=== PATIENT | female | born 1950 | race Caucasian/White ===

== ENCOUNTER 2020-11-01 06:18 | Outpatient (REF) | payer MEDICARE, SELFPAY ==
[2020-11-01 12:29] LABS: Alanine Aminotransferase 11 U/L (0-31); Anion Gap 14 (12-20); Aspartate Amino Transferase 16 U/L (5-31); Blood Urea Nitrogen 17 mg/dL (9-16); Calcium 9.3 mg/dL (8.4-10.2); Carbon Dioxide 30 mmol/L (22-29); Chloride 101 mmol/L (96-108); Cholesterol 192 mg/dL; Estimated Glomerular Filt Rate > 60; Glucose Fasting 114 mg/dL (60-99); HDL Cholesterol 67 mg/dL; LDL Cholesterol Calculated 106 mg/dl; Potassium 3.7 mmol/l (3.3-5.1); Sodium 141 mmol/L (135-145); Triglycerides 95 mg/dL
== END 2020-11-01 06:19 | disposition home or self-care (01) ==
LOC: HO.HMGCLDS 06:18
PROVIDERS: PCP Internal Medicine; Visit Provider Internal Medicine
DX: E78.5 Hyperlipidemia, unspecified (principal); I10 Essential (primary) hypertension; R73.01 Impaired fasting glucose; Z78.0 Asymptomatic menopausal state
CPT/HCPCS: 36415; 80048; 80061; 82306; 84450; 84460

== ENCOUNTER → 2021-01-20 13:39 | Outpatient (BNVA) | payer MEDICARE, SELFPAY | PROVIDERS: PCP Internal Medicine; Visit Provider Physician Assistant | DX: D12.6 Benign neoplasm of colon, unspecified (principal) | CPT/HCPCS: 99212 ==

== ENCOUNTER 2021-02-13 14:55 | Outpatient (REF) | payer MEDICARE, SELFPAY ==
--- NOTE | ~2021-02-13 | XR_ITS ---
EXAMINATION: XR KNEE, LEFT CLINICAL INFORMATION: Pain in left knee COMPARISON: Left knee 02/13/2010 TECHNIQUE: Four views of the left knee. FINDINGS: There is no fracture. No dislocation. There is no joint effusion. There is moderate degenerative joint narrowing of the medial femoral tibial joint with marginal bone spurs of femur and tibia. There are small spurs of the tibial spines. Minimal spur of the patella the patellofemoral joint. Compared to the study of 02/13/2010 there has been progression of the degenerative changes particularly at the medial femoral tibial joint with increased joint narrowing and marginal bone spurs. XR/XR knee LT 4V IMPRESSION: 1. No acute abnormality. 2. Degenerative joint disease of the knee.
== END 2021-02-13 14:56 | disposition home or self-care (01) ==
LOC: HO.HMGCX 14:55
PROVIDERS: PCP Internal Medicine; Visit Provider Hospitalist
DX: M25.562 Pain in left knee (principal)
CPT/HCPCS: 73564

== ENCOUNTER 2021-03-14 08:48 | Day surgery (SDC) | payer MEDICARE, SELFPAY ==
[2021-03-07 12:08] VITALS: BMI 26.5
--- NOTE | 2021-03-12 13:02 | HO.ANESPROP2 ---
Documented by User: Haven Mahoney 03/12/21 13:03 HPI - Anesthesia Eval Consult details Narrative: 70yo F for Colonoscopy PMFSH Active Problems Active Problems: All Active Problems (Updated 02/13/21 @ 15:02 by Lance Beltran DO) Left knee pain (Acute) Tubular adenoma of colon (Acute) Impaired fasting glucose (Acute) Menopause (Acute) Dyslipidemia (Acute) Past Medical History Medical History (Updated 02/13/21 @ 15:02 by Lance Beltran DO) Dyslipidemia Impaired fasting glucose Menopause Tubular adenoma of colon Family History Family History Father No problems noted. Mother COPD (chronic obstructive pulmonary disease) Brother No problems noted. Son No problems noted. Daughter No problems noted. Surgical History Surgical History (Updated 03/07/21 @ 12:11 by Jen Ragsdale) History of section History of surgery Hx of colonoscopy Social History Social History (Updated 03/07/21 @ 12:10 by Jen Ragsdale) Household Members: Family Alcohol intake: current Alcohol intake frequency: holidays/special occasions only Are you DNR?: No Advance Directives: No Advance Directives Information Provided: No Advance Directives on File: No Meds Allergies Allergy/AdvReac Type Severity Reaction Status Date / Time codeine Allergy Severe Vomiting Verified 03/07/21 12:11 Home Medications Medication Instructions Recorded Confirmed Last Taken Type cholecalciferol (vitamin D3) 50 50 mcg PO DAILY 11/13/20 03/07/21 Unknown History mcg (2,000 unit) capsule flu vacc [id number](65yr up)-PF 240 ml IM DIRECTED 11/13/20 02/13/21 Unknown History mcg/0.7 mL intramuscular syringe calcium carbonate 500 mg calcium 500 mg PO DAILY 01/20/21 03/07/21 Unknown History (1,250 mg) chewable tablet multivitamin 1 tab PO DAILY 01/20/21 03/07/21 Unknown History Exam Exam Date and Time: March 12, 2021 1302 Height,Weight and Vital Signs: Height 5 ft 2 in Weight 65.771 kg Assessment and Plan Assessment Anesthesia Assessment: Chart Reviewed Documented by User: Audelia Tal 03/14/21 10:14 [facility] Past Medical History Medical History (Updated 02/13/21 @ 15:02 by Lance Beltran DO) Dyslipidemia Impaired fasting glucose Menopause Tubular adenoma of colon Family History Family History Father No problems noted. Mother COPD (chronic obstructive pulmonary disease) Brother No problems noted. Son No problems noted. Daughter No problems noted. Surgical History Surgical History (Updated 03/07/21 @ 12:11 by Jen Ragsdale) History of section History of surgery Hx of colonoscopy Social History Social History (Updated 03/07/21 @ 12:10 by Jen Ragsdale) Household Members: Family Alcohol intake: current Alcohol intake frequency: holidays/special occasions only Are you DNR?: No Advance Directives: No Advance Directives Information Provided: No Advance Directives on File: No Meds Allergies Allergy/AdvReac Type Severity Reaction Status Date / Time codeine Allergy Severe Vomiting Verified 03/07/21 12:11 Home Medications Medication Instructions Recorded Confirmed Last Taken Type cholecalciferol (vitamin D3) 50 50 mcg PO DAILY 11/13/20 03/07/21 Unknown History mcg (2,000 unit) capsule flu vacc [id number](65yr up)-PF 240 ml IM DIRECTED 11/13/20 02/13/21 Unknown History mcg/0.7 mL intramuscular syringe calcium carbonate 500 mg calcium 500 mg PO DAILY 01/20/21 03/07/21 Unknown History (1,250 mg) chewable tablet multivitamin 1 tab PO DAILY 01/20/21 03/07/21 Unknown History Exam Airway Mallampati Class: I TM Dist: >3cm Neck ROM: Full Heart: RrR Lungs: CTA Assessment and Plan Assessment Anesthesia Assessment: Anesthesia Plan Discussed and Chart Reviewed Final Anesthetic Review NPO: Yes ASA Class: II Final Preanesthetic Review: No Changes in Pt Med Stat and Consent Obtained/Reviewed Patient Risk: Intermediate Procedure Risk: Intermediate Anesthetic Plan Anesthetic Plan: MAC: Disposition: Standard PACU
[2021-03-14 09:17] VITALS: BP 167/80; PULSE 89; RESP 20; TEMP 36.7; O2SAT 96
[2021-03-14] MEDS: Lactated Ringers 1,000 ML 100 ML IVCONT (09:45)
--- NOTE | 2021-03-14 10:29 | P.OP_ITS ---
Operative Note Operative Note Date of Service: 03/14/21 Narrative: Pre-op diagnosis: Colon cancer screening, history of colon polyps Post-op diagnosis: other (Colon polyp, diverticulosis, hemorrhoids) Procedure: COLONOSCOPY TILL CECUM WITH BIOPSIES Consent: Indications for the procedure and potential complications of bleeding, perforation, reaction to medications and missed diagnosis were discussed with the patient and informed consent was obtained. Instrument: Olympus PCF H 190 L variable stiffness pediatric colonoscope Monitoring: Vital signs and clinical assessment, intermittent blood pressure monitoring, continuous EKG monitoring, Pulse oximetry and Carbon Dioxide monitoring were done throughout the procedure. Colon withdrawl time was 21 minutes. Procedure: The patient was placed in the left lateral decubitis position and pre-procedure medications were administered. After a digital rectal examination of the ano-rectum, the video colonoscope was inserted into the rectum and advanced through the colon to the cecum. The colonoscope was slowly withdrawn in a retrograde panoramic fashion and the colon mucosa was carefully examined including a retroflexed view of the rectum. Findings and interventions are described below. Procedure Difficulty: Without difficulty Findings: Terminal Ileum: Not evaluated Cecum: Normal Ascending Colon: Normal Transverse Colon: Normal Descending Colon: Normal Sigmoid Colon: One 6-7 mm sessile polyp removed with a cold bx. Moderate diverticulosis Rectum: Normal Ano-rectum: Moderate internal hemorrhoids and perianal skin tags Colon preparation: Good after some irrigation Impression and Post Procedure Diagnosis: Colonoscopy Findings: One small polyp removed Moderate diverticulosis seen in the sigmoid colon Moderate hemorrhoids on retroflexed exam. Plan: Await pathology results Patient has an appointment on 03/27/21 in the [facility] with DREW Agudelo. Repeat Colonoscopy interval based on path results - in 5 years if polyps are adenomatous and 10 years if polyps are hyperplastic. Above findings were reviewed with the patient and colon polyps and diverticulosis handouts were given in the discharge area Surgeon: Britney Beck MD Anesthesia: MAC (Dr Gonzales) Was an Hand Silvering Supervisor used for this Procedure?: Yes Hand Silvering Supervisor: Anthony Jewell Estimated blood loss (mL): 0 Pathology: other ( A- SIGMOID POLYP) Condition: stable Disposition: PACU
--- NOTE | 2021-03-14 10:29 | MHC.SHP ---
Pre-Procedural Eval Section A The patient is an INPATIENT: No The History & Physical has been completed within 30 days and I have reviewed it.: No Section B Chief Complaint: screening Details of Present Illness: Colon cancer screening, history of colon polyps Relevant Family History (Specify if Yes): No Relevant Social History: Tobacco Use (past smoker) Present Medications: see Short Stay Collaborative assessment Medical History: Significant History (Dyslipidemia Impaired fasting glucose Menopause Tubular adenoma of colon) History of Previous Operations: Relevant previous surgery/procedure and date(s) (C Section) Allergies: Allergies Allergy/AdvReac Type Severity Reaction Status Date / Time codeine Allergy Severe Vomiting Verified 03/07/21 12:11 Review of Systems Sugical H&P ROS: Negative: Constitution, Cardiovascular, Respiratory and Gastrointestinal Exam Surgical H&P Exam: Normal: Heart, Normal: Lungs, Normal: Extremities and Normal: Abdomen Plan Diagnosis/Plan: Unchanged I have reviewed the history and physical and performed a pertinent physical examination on my patient. No changes have occurred unless specified.
[2021-03-14 11:12] VITALS: BP 114/54; PULSE 86; RESP 16; TEMP 36.6; O2SAT 97
[2021-03-14 11:27] VITALS: BP 138/71; PULSE 79; RESP 17; TEMP 36.6; O2SAT 98
== END 2021-03-14 12:30 | disposition home or self-care (01) ==
PROVIDERS: PCP Internal Medicine; Visit Provider Internal Medicine Gastroenterology
PROC: 0DJD8ZZ Inspection of Lower Intestinal Tract, Via Natural or Artificial Opening Endoscopic (ICD-10-PCS; CPT 45378; principal; 2021-03-14 10:10)
DX: Z12.11 Encounter for screening for malignant neoplasm of colon (principal); Z86.010 Personal history of colon polyps; K63.5 Polyp of colon; K57.30 Diverticulosis of large intestine without perforation or abscess without bleeding; K64.8 Other hemorrhoids; K64.4 Residual hemorrhoidal skin tags; E78.5 Hyperlipidemia, unspecified; Z79.899 Other long term (current) drug therapy; Z87.891 Personal history of nicotine dependence
CPT/HCPCS: 45380; 88305

== ENCOUNTER 2021-04-15 09:51 | Outpatient (REF) | payer MEDICARE, SELFPAY ==
--- NOTE | ~2021-04-15 | MM_ITS ---
EXAMINATION: BONE DENSITOMETRY CLINICAL INDICATION: Asymptomatic menopausal state. COMPARISON: Previous BD dated 06/16/2019 and baseline BD dated 02/19/2017. TECHNIQUE: Using a [employer] DXA System (software version: 13.1) manufactured by [employer], dual-energy x-ray absorptiometry was performed of the lumbar spine and left hip. The images are of good technical quality. Summary results are attached. FINDINGS: AP SPINE L1-L4: Current: BMD 1.319 g/cm2, Z-score 2.8, T-score 1.2, normal, 1.2% increase from previous, 4.1% increase from baseline (<5% change is not significant). Prior: BMD 1.303 g/cm2. Baseline: BMD 1.267 g/cm2. LEFT FEMUR, NECK: Current: BMD 0.814 g/cm2, Z-score 0.0, T-score -1.6, osteopenia. Prior: BMD 0.837 g/cm2. Baseline: BMD 0.878 g/cm2. LEFT FEMUR, TOTAL: Current: BMD 0.861 g/cm2, Z-score 0.2, T-score -1.2, osteopenia, 2.8% decrease from previous, 5.6% decrease from baseline (<5% change is not significant). Prior: BMD 0.886 g/cm2. Baseline: BMD 0.912 g/cm2. IDENTIFIED RISK FACTORS: Menopause, thiazide. HISTORY OF FRACTURE: None listed. MEDICATIONS: Calcium supplements or multivitamin, vitamin D. MM/XR DEXA axial skeleton IMPRESSION: 1. DIAGNOSIS: Osteopenia based on the lowest T-score value of -1.6 in the femoral neck applying World Health Organization criteria. 2. 10-YEAR FRACTURE RISK PREDICTION, FRAX: Major osteoporotic fracture (clinical spine, forearm, hip or shoulder) 10.1%. Hip fracture 1.4%. 3. Treatment Recommendations: NOF guidelines recommend consideration for treatment in postmenopausal women and men age 50 and older presenting with the following: -A hip or vertebral (clinical or morphometric) fracture. -T-score less than or equal to -2.5 at the femoral neck or spine after appropriate evaluation to exclude secondary causes. -Low bone mass at the hip or spine and a 10-year fracture probability by FRAX of greater than or equal to 3% for hip fracture or greater than or equal to 20% for major osteoporotic fracture based on the [place] adapted WHO algorithm. 4. Other Recommendations: All treatment decisions require clinical judgment and consideration of individual patient factors, including patient preferences, comorbidities, previous drug use, risk factors not captured in the FRAX model (e.g. frailty, falls, vitamin D deficiency, increased bone turnover, interval significant decline in bone density) and possible under or overestimation of fracture risk by FRAX. Additional medical evaluation for secondary cause of low bone mineral density may be appropriate. FUTURE SCAN RECOMMENDATION: People with diagnosed cases of osteoporosis or at high risk for fracture should have regular bone mineral density tests. For patients eligible for Medicare, routine testing is allowed once every 2 years. The testing frequency can be increased to one year for patients who have rapidly progressing disease, those who are receiving or discontinuing medical therapy to restore bone mass, or have additional risk factors.
--- NOTE | ~2021-04-15 | MM_ITS ---
EXAMINATION: MM SCREENING DIGITAL BREAST TOMOSYNTHESIS, BILATERAL CLINICAL INFORMATION: Screening. Asymptomatic. The lifetime risk of breast cancer based on the Tyrer-Cuzick Model is 3.5%. COMPARISON: Mammography: September 16, 2018 and studies dating back to December 06, 2009 TECHNIQUE: Digital breast tomosynthesis is performed in both the craniocaudal and mediolateral oblique views along with computer-aided detection (CAD). Synthesized 2D images are generated from the tomosynthesis. FINDINGS: The breasts are extremely dense, which lowers the sensitivity of mammography (ACR BI-RADS breast composition Category d). There are no significant masses, abnormal calcifications, or other abnormalities. MM/MM tomosynthesis screening BI IMPRESSION: There are no significant changes from prior study. ASSESSMENT: BI-RADS 1: Negative RECOMMENDATION: Routine annual mammography screening. This patient's information was entered into a reminder system with a target due date for their next mammogram.
== END 2021-04-15 09:52 | disposition home or self-care (01) ==
LOC: HO.MAMMO 09:51
PROVIDERS: Visit Provider Internal Medicine
DX: Z12.31 Encounter for screening mammogram for malignant neoplasm of breast (principal); Z13.820 Encounter for screening for osteoporosis; M85.80 Other specified disorders of bone density and structure, unspecified site; Z78.0 Asymptomatic menopausal state; Z79.899 Other long term (current) drug therapy
CPT/HCPCS: 77063; 77067; 77080

== ENCOUNTER → 2021-04-17 07:26 | Outpatient (BNVA) | payer MEDICARE, SELFPAY | PROVIDERS: PCP Internal Medicine; Visit Provider Physician Assistant | DX: Z13.89 Encounter for screening for other disorder (principal) | CPT/HCPCS: Q3014 ==

== ENCOUNTER 2021-05-05 12:38 | Outpatient (REF) | payer MEDICARE, SELFPAY ==
--- NOTE | ~2021-05-05 | XR_ITS ---
EXAMINATION: XR KNEE, BILATERAL XR KNEE, LEFT CLINICAL INFORMATION: Left knee pain. COMPARISON: Right knee 02/13/2021 TECHNIQUE: AP bilateral knees standing. Left knee 2 views. FINDINGS: AP BILATERAL KNEE: There is moderate loss of medial compartment joint space both knees with moderate periarticular spurring. There is minimal loss of lateral compartment joint. No fracture or bony erosive changes. Incidental finding of large varicose veins are seen along the medial calf and the medial thigh bilaterally. LEFT KNEE: There is mild loss of patellofemoral compartment joint space with superior periarticular spurring. There is minimal suprapatellar joint effusion. No acute fracture or lytic process seen. XR/XR knee standing BI IMPRESSION: Degenerative arthritic changes tricompartment left knee with periarticular spurring in the medial and the patellofemoral compartment. Moderate medial and mild lateral compartment arthritic changes right knee. Moderate varicose veins are seen along the medial calf and medial thigh of both knees.
--- NOTE | ~2021-05-05 | XR_ITS ---
EXAMINATION: XR KNEE, BILATERAL XR KNEE, LEFT CLINICAL INFORMATION: Left knee pain. COMPARISON: Right knee 02/13/2021 TECHNIQUE: AP bilateral knees standing. Left knee 2 views. FINDINGS: AP BILATERAL KNEE: There is moderate loss of medial compartment joint space both knees with moderate periarticular spurring. There is minimal loss of lateral compartment joint. No fracture or bony erosive changes. Incidental finding of large varicose veins are seen along the medial calf and the medial thigh bilaterally. LEFT KNEE: There is mild loss of patellofemoral compartment joint space with superior periarticular spurring. There is minimal suprapatellar joint effusion. No acute fracture or lytic process seen. XR/XR knee LT 2V IMPRESSION: Degenerative arthritic changes tricompartment left knee with periarticular spurring in the medial and the patellofemoral compartment. Moderate medial and mild lateral compartment arthritic changes right knee. Moderate varicose veins are seen along the medial calf and medial thigh of both knees.
== END 2021-05-05 12:39 | disposition home or self-care (01) ==
LOC: HO.HOSX 12:38
PROVIDERS: Visit Provider Orthopaedic Surgery
DX: M17.12 Unilateral primary osteoarthritis, left knee (principal)
CPT/HCPCS: 20610; 73560; 73565; 99202; J1100

== ENCOUNTER 2021-05-31 15:14 | Outpatient (REF) | payer MEDICARE, SELFPAY | END 2021-05-31 15:15 | disposition home or self-care (01) | LOC: HO.LNP 15:14 | PROVIDERS: Visit Provider Physician Assistant Medical | DX: H10.9 Unspecified conjunctivitis (principal); Z20.822 Contact with and (suspected) exposure to COVID-19 | CPT/HCPCS: U0003; U0005 ==

== ENCOUNTER 2021-09-18 06:05 | Outpatient (REF) | payer MEDICARE, SELFPAY ==
[2021-09-18 11:42] LABS: Alanine Aminotransferase 12 U/L (0-31); Anion Gap 11 (12-20); Aspartate Amino Transferase 16 U/L (5-31); Blood Urea Nitrogen 15 mg/dL (9-16); Calcium 9.6 mg/dL (8.4-10.2); Carbon Dioxide 30 mmol/L (22-29); Chloride 107 mmol/L (96-108); Cholesterol 205 mg/dL; Estimated Glomerular Filt Rate > 60; Glucose Fasting 122 mg/dL (60-99); HDL Cholesterol 62 mg/dL; LDL Cholesterol Calculated 123 mg/dl; Potassium 3.8 mmol/L (3.3-5.1); Sodium 144 mmol/L (135-145); Triglycerides 104 mg/dL
[2021-09-18 12:05] LABS: Vitamin D 25-OH Total 46.5 ng/mL (>30)
== END 2021-09-18 06:06 | disposition home or self-care (01) ==
LOC: HO.HMGCLDS 06:05
PROVIDERS: PCP Internal Medicine; Visit Provider Internal Medicine
DX: E78.5 Hyperlipidemia, unspecified (principal); R73.01 Impaired fasting glucose; I10 Essential (primary) hypertension; Z78.0 Asymptomatic menopausal state
CPT/HCPCS: 36415; 80048; 80061; 82306; 84450; 84460

== ENCOUNTER 2022-02-19 06:01 | Outpatient (REF) | payer MEDICARE, SELFPAY ==
[2022-02-19 11:37] LABS: Alanine Aminotransferase 9 U/L (0-31); Anion Gap 14 (12-20); Aspartate Amino Transferase 17 U/L (5-31); Blood Urea Nitrogen 15 mg/dL (9-16); Calcium 9.8 mg/dL (8.4-10.2); Carbon Dioxide 29 mmol/L (22-29); Chloride 104 mmol/L (96-108); Cholesterol 185 mg/dL; Estimated Glomerular Filt Rate > 60; Glucose Fasting 119 mg/dL (60-99); HDL Cholesterol 59 mg/dL; LDL Cholesterol Calculated 107 mg/dl; Sodium 143 mmol/L (135-145); Triglycerides 96 mg/dL
[2022-02-19 11:46] LABS: Estimated Average Glucose 131 mg/dL; Hemoglobin A1c % 6.2 %
== END 2022-02-19 06:02 | disposition home or self-care (01) ==
LOC: HO.HMGCLDS 06:01
PROVIDERS: Visit Provider Internal Medicine
DX: Z00.01 Encounter for general adult medical examination with abnormal findings (principal); E78.5 Hyperlipidemia, unspecified; R73.01 Impaired fasting glucose; I10 Essential (primary) hypertension; N95.9 Unspecified menopausal and perimenopausal disorder
CPT/HCPCS: 36415; 80048; 80061; 82306; 83036; 84450; 84460

== ENCOUNTER 2022-04-21 09:57 | Outpatient (REF) | payer MEDICARE, SELFPAY ==
--- NOTE | ~2022-04-21 | MM_ITS ---
EXAMINATION: MM SCREENING DIGITAL BREAST TOMOSYNTHESIS, BILATERAL CLINICAL INFORMATION: Screening. Asymptomatic. The lifetime risk of breast cancer based on the Tyrer-Cuzick Model is 3%. COMPARISON: Mammography: 04/15/2021, 09/16/2018, 07/12/2017 TECHNIQUE: Digital breast tomosynthesis is performed in both the craniocaudal and mediolateral oblique views along with computer-aided detection (CAD). Synthesized 2D images are generated from the tomosynthesis. FINDINGS: The breasts are extremely dense, which lowers the sensitivity of mammography (ACR BI-RADS breast composition Category d). There are no significant masses, abnormal calcifications, or other abnormalities. Parenchymal pattern is similar to prior exams. No developing density. There are scattered benign round and some rim calcifications. The axilla are unremarkable. MM/MM tomosynthesis screening BI IMPRESSION: No mammographic evidence of malignancy. ASSESSMENT: BI-RADS 1: Negative RECOMMENDATION: Routine annual mammography screening. This patient's information was entered into a reminder system with a target due date for their next mammogram.
== END 2022-04-21 09:58 | disposition home or self-care (01) ==
LOC: HO.MAMMO 09:57
PROVIDERS: Visit Provider Internal Medicine
DX: Z12.31 Encounter for screening mammogram for malignant neoplasm of breast (principal)
CPT/HCPCS: 77063; 77067

== ENCOUNTER 2022-09-25 06:02 | Outpatient (REF) | payer MEDICARE, SELFPAY ==
[2022-09-25 13:50] LABS: Alanine Aminotransferase 12 U/L (0-31); Anion Gap 11 (12-20); Aspartate Amino Transferase 15 U/L (5-31); Blood Urea Nitrogen 21 mg/dL (9-16); Calcium 9.4 mg/dL (8.4-10.2); Carbon Dioxide 32 mmol/L (22-29); Chloride 105 mmol/L (96-108); Cholesterol 199 mg/dL; Estimated Glomerular Filt Rate > 60; Glucose Fasting 122 mg/dL (60-99); HDL Cholesterol 66 mg/dL; LDL Cholesterol Calculated 117 mg/dl; Sodium 144 mmol/L (135-145); Triglycerides 80 mg/dL
== END 2022-09-25 06:03 | disposition home or self-care (01) ==
LOC: HO.HMGCLDS 06:02
PROVIDERS: PCP Internal Medicine; Visit Provider Internal Medicine
DX: R73.01 Impaired fasting glucose (principal); E78.5 Hyperlipidemia, unspecified; Z78.0 Asymptomatic menopausal state
CPT/HCPCS: 36415; 80048; 80061; 82306; 84450; 84460

== ENCOUNTER 2022-10-01 09:33 | Outpatient (AMB) | payer MEDICARE, SELFPAY ==
[2022-10-01 10:05] VITALS: BP 128/70; PULSE 88; O2SAT 99; BMI 25.9
--- NOTE | 2022-10-01 10:05 | MHC.PC.OV ---
Vital Signs 10/01/22 10:05 Height 5 ft 2 in Weight 142 lb BMI 25.9 BP 128/70 Blood Pressure Location Rt brachial Position Sitting Pulse 88 Pulse Source Pulse Oximeter Pulse Oximetry (%) 99 Oxygen Delivery Method Room Air Intake Visit Reasons: PE Intake Note: Pt is here today for her PE Allergies codeine Allergy (Severe, Verified 05/29/23 11:13) Vomiting Medication List - Last Reconciled 12/06/22 by Kylie Lira MD calcium carbonate (Calcium 500) 500 mg PO DAILY cholecalciferol (vitamin D3) 50 mcg PO DAILY lovastatin 80 mg (2 x 40 mg) PO QPM multivitamin 1 tab PO DAILY Tobacco use date assessed: 10/01/22 Fall risk assessment: No Falls in past year Last assessed Fall Risk: 10/01/22 HPI PE HPI Details 72-year-old lady with dyslipidemia, impaired fasting glucose, osteopenia in left femoral neck and left femur, here today for physical exam. Feeling well, with no complaints at present time. Compliant with taking her medications and stays active. Last bone density scan showed presence of osteopenia in her left femoral neck and left femur done in 2020 she is up-to-date with her screening mammogram and colonoscopy. [facility] Medical History Dyslipidemia Impaired fasting glucose Menopause Osteopenia of left femoral neck Tubular adenoma of colon Surgical History History of section History of surgery Hx of colonoscopy Family History Father Anemia Mother COPD (chronic obstructive pulmonary disease) Son No problems noted. Daughter No problems noted. Brother Mental health disorder Social History Household Members: Children Housing: House Do you presently have visiting nurse or other home services: No Alcohol intake: current Alcohol intake frequency: holidays/special occasions only Patient Tobacco Use Status: Former Tobacco user Quit Date: 2006 Years Smoked: 35 yrs Smoked in Last 30 Days: No e-Cigarette/Vaping Use: Never Used Use of substances other than those prescribed or required for medical reasons: No Have you been hit, kicked, punched, or otherwise hurt by someone within the past year? If so, by whom?: No Do you feel safe in your current relationship?: No Is there a partner from a previous relationship who is making you feel unsafe now?: No Are you made to feel afraid or neglected: No Advance Directives: Yes Advance Directives on File: Yes Advance Directives Date on File: 10/01/22 Do you have thoughts of harming others: None Do you have a plan to hurt others: No Plan Recently lost weight without trying: Yes How much weight loss: 2-13 pounds Eating poorly because of decreased appetite: No Nutrition screen score: 3 Nutrition Risks: No Nutritional Risk Patient : No service: No Current occupational status: employed 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 1. Little interest or pleasure in doing things: not at all 2. Feeling down, depressed, or hopeless: not at all 3. Trouble falling or staying asleep, or sleeping too much: not at all 4. Feeling tired or having little energy: not at all 5. Poor appetite or overeating: not at all 6. Feeling bad about yourself - or that you are a failure or have let yourself or your family down: not at all 7. Trouble concentrating on things, such as reading the newspaper or watching television: not at all 8. Moving or speaking so slowly that other people could have noticed. Or the opposite - being so fidgety or restless that you have been moving around a lot more than usual: not at all 9. Thoughts that you would be better off or of hurting yourself in some way: not at all Total score: 0 Depression Screening Interpretation: Negative 34992 - PHQ-9 Billing: Yes Source: Developed by Drs. Brandon Ramirez, Julia Yost, Tyron Guillaume and colleagues, with an educational saida from [employer]. Thrive Questionnaire Declines Thrive assessment: No Date Thrive assessed: 10/01/22 I am a: Patient What is your living situation today?: I have a steady place to live Within the past 12 months, did the food you bought not last and you didn't have the money to get more?: Sometimes True Within the past 12 months, did you worry whether your food would run out before you got money to buy more?: Sometimes True Do you have trouble paying for medicines?: No Do you have trouble getting transportation to medical appointments?: No Do you have trouble paying your heating and electricity bill?: Yes Do you have trouble taking care of your child, family member or friend?: No Do you have trouble with day-to-day activities such as bathing, preparing meals, shopping, managing finances, etc.?: No Are you currently unemployed and looking for a job?: No Are you interested in more education?: No DINESH-7 AMB Questionnaire DINESH-7 Date DINESH - 7 assessed: 10/01/22 Feeling nervous, anxious, or on edge: 0 = Not at all Not being able to stop or control worryin = Not at all Worrying too much about different things: 0 = Not at all Trouble relaxin = Not at all Being so restless that it is hard to sit still: 0 = Not at all Becoming easily annoyed or irritable: 0 = Not at all Feeling afraid as if something awful might happen: 0 = Not at all Total DINESH-7 score (0-4 normal; 5-9 mild; 10-14 moderate; 15-21 severe): 0 Source: Developed by Drs. Brandon Ramirez, Julia Yost, Tyron Guillaume and colleagues, with an educational saida from [employer]. DINESH-7 Assessment Billing DINESH-7 Assessment Tool: DINESH-7 Assessment 88598 Review of Systems Const Denies body aches, Denies fatigue, Denies fever(s), Denies headache(s) and Denies weakness Eyes Denies change in vision, Denies eye discharge and Denies itchy eyes ENT Reports Normal hearing present, Denies dizziness, Denies headache(s), Reports nasal congestion, Denies nasal discharge, Reports post nasal drip and Denies sore throat Card Denies chest pain, Denies lightheadedness, Denies palpitations and Denies dyspnea Resp Denies chest congestion, Denies cough, Denies dyspnea and Denies wheezing GI Denies abdominal pain, Denies change in bowel habits and Denies heartburn Denies urinary frequency, Denies dysuria and Denies urinary urgency Musc Reports no additional complaints Skin/Breast Denies lesions and Denies rash Neuro Reports Normal hearing present, Denies dizziness, Denies headache(s), Denies Sensory deficit (Neuro) and Denies weakness Psych Reports no additional complaints Endo Denies fatigue, Denies polydipsia, Denies polyuria and Denies palpitations Mitch/Lymph Denies easy bruising Aller/Immun Denies itchy eyes, Denies seasonal rhinorrhea and Denies wheezing Physical exam (Primary Care) Vital Signs: Last Vital Signs Pulse 88 10/01/22 10:05 BP 128/70 10/01/22 10:05 Pulse Ox 99 10/01/22 10:05 Oxygen Delivery Method Room Air 10/01/22 10:05 BMI result Body Mass Index 25.9 Tobacco/Smoking Status: Tobacco use Status Tobacco use date assessed 10/01/22 10/01/22 10:08 Patient Tobacco Use Status Former Tobacco user 10/01/22 10:42 e-Cigarette/Vaping Use Never Used 10/01/22 10:42 PHQ-9: PHQ-9 Score PHQ-9: Total score 0 12/06/22 15:06 Depression Screening Interpretation: Negative Thrive Assessment: Date of Thrive Assessment Date Thrive assessed 10/01/22 10/01/22 10:08 Advance Care Planning discussion: Completed/Scanned Date of discussion: 10/01/22 Who was present: Patient Forms completed: Health Care Proxy Time spent: 16-45 minutes Actual minutes spent: 16 Const General: cooperative, healthy appearing, no acute distress and alert Orientation/consciousness: patient oriented x3 Limitations: no limitations [facility] Head: Yes normal to inspection, Yes normocephalic and Yes atraumatic Ears: hearing grossly normal bilaterally, external ears normal, TM's normal bilaterally and EAC's normal General nose exam: Normal external nose present, Normal nasal mucous membranes and turbinates present and No nasal discharge present Face and sinus: Yes face symmetric Mouth: Normal oral and palatal mucosa present and moist mucous membranes Eyes Conjunctivae: conjunctivae normal Sclerae: sclerae normal Pupils: Equal, round and reactive pupils present EOM: EOMs intact bilaterally Neck Neck: Yes full ROM and Yes no lymphadenopathy Thyroid: Thyroid normal Carotids: normal carotid upstroke Lymphatic: no lymphadenopathy noted Chest Chest palpation & inspection: normal inspection of the chest Breast/axilla palpation: normal palpation of the breasts Resp Effort & Inspection: normal respiratory effort and able to speak in complete sentences Auscultation: clear to auscultation bilaterally Cardio Jugular venous distension: no JVD Rate: regular rate Rhythm: regular rhythm Heart sounds: S1 normal heart sound present and S2 normal heart sound present GI Inspection: Yes normal to inspection Palpation (GI): Soft to palpation Auscultation: normal bowel sounds General: Yes no CVA tenderness Back/Spine/Pelvis Back: no CVA tenderness Skin General skin exam: no rashes or lesions noted Neuro General: patient oriented x3, gait normal, moves all extremities, no focal motor deficits and CN's II-XI intact bilaterally Cranial nerves: Yes Equal, round and reactive pupils present and Yes Normal hearing present Cognition (Neuro): normal cognition Gait exam (Neuro): Normal gait present Motor exam (neuro): 5/5 motor strength present throughout Sensory Exam: No Sensory deficit (Neuro) Extrem General: Yes normal to inspection, Yes full ROM, Yes no pedal edema and Yes normal gait Psych Appearance: grossly normal and well kempt Mental Status: mental status grossly normal Speech and movement: Normal speech and movement present Affect: normal affect Attitude: cooperative Thought process: Normal thought process present Results AMB Hemoglobin A1c AMB Hemoglobin A1c 5.8 % Last Edit by Sarah Echeverria CMA on 10/01/22 10:14 Results Reviewed Results Reviewed: Laboratory Last Values Hgb A1c (Clinic) 5.8 % (4.0-6.0) 10/01/22 10:09 ENTERED: 09/25/22- UZMA HERNÁNDEZ: ORDERED: Met Prof Fast, AST, ALT, Lipid Panel, Vitamin D 25-OH Test Result Flag Reference Site Sodium 144 135-145 mmol/L Potassium 4.0 3.3-5.1 mmol/L CL 105 96-108 mmol/L CO2 32 H 22-29 mmol/L Gap 11 L 12-20 BUN 21 H 9-16 mg/dL Creat 0.69 0.5-1.4 mg/dL EGFR > 60 NOTE: For -[place] individuals, multiply the result by 1.210. Chronic Kidney Disease: Estimated GFR < 60 mL/min/1.73m2 Severe Kidney Disease: Estimated GFR < 15 mL/min/1.73m2 FBS 122 H 60-99 mg/dL A fasting glucose from 100-125 mg/dl is considered impaired (pre-diabetes). CA 9.4 8.4-10.2 mg/dL AST (GOT) 15 5-31 U/L ALT (GPT) 12 0-31 U/L Triglyceride 80 mg/dL Desirable Triglyceride: less than 150 mg/dL Borderline High Triglyceride 150-199 mg/dL High Triglyceride: 200-499 mg/dL Very High Triglyceride: greater than or equal to 5OO mg/dL Chol 199 mg/dL Desirable Cholesterol: less than 200 mg/dL Borderline High Cholesterol: 200-239 mg/dL High Cholesterol: greater than 239 mg/dL LDL Calculated 117 mg/dl Desirable LDL: less than 100 mg/dL Near Optimal/Above Optimal LDL: 110-129 mg/dL Borderline High LDL: 130-159 mg/dL High LDL: 160-189 mg/dL Very High LDL: greater than or equal to 190 mg/dL HDL 66 mg/dL Desirable HDL: greater than 40 mg/dL Note: This HDL assay may give artificially low results in patients with liver disease. Vit D 25-OH Tot 59.0 >30 ng/mL Health Based Reference Values* < 20 ng/mL Deficient 20-30 ng/mL Insufficient > 30 ng/mL Sufficient Assessment and Plan Assessment & Plan (1) Annual visit for general adult medical examination with abnormal findings: Code(s): Z00.01 - Encounter for general adult medical examination with abnormal findings Plan: Reviewed recent fasting labs with patient.. Recommended dental visit every 6 months and regular eye exams, at least every 2 years. Continue taking calcium in diet and vitamin-D 3 at 2000 IU per cap once a day, in addition to weight-bearing exercises to help maintain good muscle tone and weight control. Continue to do self-breast exam, and get yearly mammogram, will repeat another bone density next year. She is up-to-date with all her vaccinations and her screening colonoscopy (2) Impaired fasting glucose: Code(s): R73.01 - Impaired fasting glucose Plan: Her hemoglobin A1c is at 5.8%, Your fasting blood sugars elevated above 100 mg/dL. Impaired glucose metabolism O2 at risk for developing diabetes mellitus type 2, as well as heart attack and stroke later on. Lifestyle changes at just weight loss, healthy eating habits, and regular exercise are important, and can prevent the progression to diabetes (3) Dyslipidemia: Code(s): E78.5 - Hyperlipidemia, unspecified Plan: Reviewed recent fasting lipid profile with patient with levels within normal limits . Continue with lovastatin , in addition to adherence to low-cholesterol diet and regular exercise, at least 30 minutes 3 to 4 times a week. Advised patient to make healthy food choices, eat more fruits, vegetables, whole grains, wild caught fish and low-fat dairy. Limit amount of meat and fried or fatty food products, as well as processed foods and fast foods. Follow-up scheduled with repeat fasting lipid panel in 5 months. (4) Osteopenia of left femoral neck: Code(s): M85.852 - Other specified disorders of bone density and structure, left thigh Plan: Reminded to go do regular weight-bearing exercise to prevent further bone loss, continue with taking calcium and vitamin-D 3 supplements will repeat another bone density scan next year Orders: Orders AMB Hemoglobin A1c 10/01/22 R73.01 - Impaired fasting glucose Coding Level of Care Code Est Pt Prev Care >65y(11229) Diagnoses Annual visit for general adult medical examination with abnormal findings Z00.01 Impaired fasting glucose R73.01 Dyslipidemia E78.5 Osteopenia of left femoral neck M85.852 Additional Codes DINESH-7 Assessment Billing - DINESH-7 Assessment Tool: DINESH-7 Assessment 50617 ([id number]) Vital Signs *Quality* - Advance Care Planning discussion: Completed/Scanned ([id number]) Vital Signs *Quality* - Time spent: 16-45 minutes ([id number])
== END 2022-10-01 10:45 | disposition home or self-care (01) ==
LOC: HO.HMGC 09:33
PROVIDERS: PCP Internal Medicine; Visit Provider Internal Medicine
DX: R73.01 Impaired fasting glucose
CPT/HCPCS: 83036; 99397; 99497

== ENCOUNTER 2023-02-19 06:04 | Outpatient (REF) | payer MEDICARE, SELFPAY ==
[2023-02-19 11:52] LABS: Estimated Average Glucose 131 mg/dL; Hemoglobin A1c % 6.2 %
[2023-02-19 12:22] LABS: Alanine Aminotransferase 10 U/L (0-31); Anion Gap 13 (12-20); Aspartate Amino Transferase 14 U/L (5-31); Blood Urea Nitrogen 15 mg/dL (9-16); Calcium 9.8 mg/dL (8.4-10.2); Carbon Dioxide 30 mmol/L (22-29); Chloride 104 mmol/L (96-108); Cholesterol 208 mg/dL; Estimated Glomerular Filt Rate > 60; Glucose Fasting 123 mg/dL (60-99); HDL Cholesterol 68 mg/dL; LDL Cholesterol Calculated 122 mg/dl; Potassium 4.3 mmol/L (3.3-5.1); Sodium 143 mmol/L (135-145); Triglycerides 93 mg/dL; Vitamin D 25-OH Total 64.2 ng/mL (>30)
== END 2023-02-19 06:05 | disposition home or self-care (01) ==
LOC: HO.HMGCLDS 06:04
PROVIDERS: PCP Internal Medicine; Visit Provider Internal Medicine
DX: E78.5 Hyperlipidemia, unspecified (principal); M85.852 Other specified disorders of bone density and structure, left thigh; R73.01 Impaired fasting glucose; Z78.0 Asymptomatic menopausal state
CPT/HCPCS: 36415; 80048; 80061; 82306; 83036; 84450; 84460

== ENCOUNTER 2023-04-27 09:57 | Outpatient (REF) | payer MEDICARE, SELFPAY ==
--- NOTE | ~2023-04-27 | MM_ITS ---
EXAMINATION: MM SCREENING DIGITAL BREAST TOMOSYNTHESIS, BILATERAL CLINICAL INFORMATION: Screening. Asymptomatic. The lifetime risk of breast cancer based on the Tyrer-Cuzick Model is 2.9%. COMPARISON: Mammography: This study is compared with prior exams dating back to 2018. TECHNIQUE: Digital breast tomosynthesis is performed in both the craniocaudal and mediolateral oblique views along with computer-aided detection (CAD). Synthesized 2D images are generated from the tomosynthesis. FINDINGS: The breasts are extremely dense, which lowers the sensitivity of mammography (ACR BI-RADS breast composition Category d). There are no significant masses, abnormal calcifications, or other abnormalities. MM/MM tomosynthesis screening BI IMPRESSION: No mammographic evidence of malignancy. ASSESSMENT: BI-RADS BI-RADS 1 - Negative RECOMMENDATION: Routine annual mammography screening. 1 year F/U This examination should not preclude the clinical evaluation of a suspicious palpable abnormality. This patient's information was entered into a reminder system with a target due date for their next mammogram.
== END 2023-04-27 09:58 | disposition home or self-care (01) ==
LOC: HO.MAMMO 09:57
PROVIDERS: PCP Internal Medicine; Visit Provider Internal Medicine
DX: Z12.31 Encounter for screening mammogram for malignant neoplasm of breast (principal)
CPT/HCPCS: 77063; 77067

== ENCOUNTER → 2023-04-27 10:00 | Outpatient (BNV) | payer MEDICARE, SELFPAY | PROVIDERS: PCP Internal Medicine; Visit Provider Radiology Diagnostic Radiology | DX: Z12.31 Encounter for screening mammogram for malignant neoplasm of breast (principal) | CPT/HCPCS: 77063; 77067 ==

== ENCOUNTER 2023-05-05 10:16 | Outpatient (REF) | payer MEDICARE, SELFPAY ==
--- NOTE | ~2023-05-05 | MM_ITS ---
EXAMINATION: BONE DENSITOMETRY CLINICAL INDICATION: Osteopenia. COMPARISON: Previous BD dated 04/15/2021 and baseline BD dated 02/19/2017. TECHNIQUE: Using a [employer] DXA System (software version: 13.1) manufactured by [employer]™, dual-energy x-ray absorptiometry was performed of the lumbar spine and left hip. The images are of good technical quality. Summary results are attached. FINDINGS: LEFT FEMUR, NECK: Current: BMD 0.796 g/cm2, Z-score 0.0, T-score -1.7, osteopenia. Prior: BMD 0.814 g/cm2. Baseline: BMD 0.878 g/cm2. LEFT FEMUR, TOTAL: Current: BMD 0.822 g/cm2, Z-score 0.1, T-score -1.5, osteopenia, 4.5% decrease from previous, 9.9% decrease from baseline (<5% change is not significant). Prior: BMD 0.861 g/cm2. Baseline: BMD 0.912 g/cm2. AP SPINE L1-L4: Current: BMD 1.283 g/cm2, Z-score 2.6, T-score 0.9, normal, 2.7% decrease from previous, 1.3% increase from baseline (<5% change is not significant). Prior: BMD 1.319 g/cm2. Baseline: BMD 1.267 g/cm2. IDENTIFIED RISK FACTORS: Menopause. HISTORY OF FRACTURE: None listed. MEDICATIONS: Calcium, vitamin D. MM/XR DEXA axial skeleton IMPRESSION: 1. DIAGNOSIS: Osteopenia based on the lowest T-score value of -1.7 in the femoral neck applying World Health Organization criteria. 2. 10-YEAR FRACTURE RISK PREDICTION, FRAX: Major osteoporotic fracture (clinical spine, forearm, hip or shoulder) 11.0%. Hip fracture 2.0%. 3. Treatment Recommendations: NOF guidelines recommend consideration for treatment in postmenopausal women and men age 50 and older presenting with the following: -A hip or vertebral (clinical or morphometric) fracture. -T-score less than or equal to -2.5 at the femoral neck or spine after appropriate evaluation to exclude secondary causes. -Low bone mass at the hip or spine and a 10-year fracture probability by FRAX of greater than or equal to 3% for hip fracture or greater than or equal to 20% for major osteoporotic fracture based on the [place] adapted WHO algorithm. 4. Other Recommendations: All treatment decisions require clinical judgment and consideration of individual patient factors, including patient preferences, comorbidities, previous drug use, risk factors not captured in the FRAX model (e.g. frailty, falls, vitamin D deficiency, increased bone turnover, interval significant decline in bone density) and possible under or overestimation of fracture risk by FRAX. Additional medical evaluation for secondary cause of low bone mineral density may be appropriate. FUTURE SCAN RECOMMENDATION: People with diagnosed cases of osteoporosis or at high risk for fracture should have regular bone mineral density tests. For patients eligible for Medicare, routine testing is allowed once every 2 years. The testing frequency can be increased to one year for patients who have rapidly progressing disease, those who are receiving or discontinuing medical therapy to restore bone mass, or have additional risk factors.
== END 2023-05-05 10:17 | disposition home or self-care (01) ==
LOC: HO.MAMMO 10:16
PROVIDERS: PCP Internal Medicine; Visit Provider Internal Medicine
DX: Z13.820 Encounter for screening for osteoporosis (principal); M85.852 Other specified disorders of bone density and structure, left thigh; Z78.0 Asymptomatic menopausal state
CPT/HCPCS: 77080

== ENCOUNTER 2023-05-29 11:05 | Inpatient (IN) | payer MEDICARE, SELFPAY ==
[2023-05-29] VITALS (7 sets, daily range): BP systolic 140–168; BP diastolic 66–91; PULSE 86–102; RESP 16–20; TEMP 36.4–36.9; O2SAT 92–96; BMI 27.1
--- NOTE | ~2023-05-29 | XR_ITS ---
EXAMINATION: XR CHEST CLINICAL INFORMATION: Pain COMPARISON: Previous chest x-ray May 2015. TECHNIQUE: 2 views of the chest were obtained. FINDINGS: The cardiac silhouette does not appear enlarged. Hilar and mediastinal contours are unremarkable. The lungs are well inflated. The lungs are clear. No pleural effusion or pneumothorax. Degenerative changes of the spine. XR/XR chest 2V IMPRESSION: Well-inflated lungs. No evidence for acute disease in the chest.
--- NOTE | ~2023-05-29 | CT_ITS ---
EXAMINATION: CT ANGIOGRAM OF THE CHEST WITH AND WITHOUT CONTRAST (CT PULMONARY ANGIOGRAM FOR PE) CLINICAL INFORMATION: Reason for Exam Hematemesis, rule out PE, malignancy COMPARISON: Previous chest x-ray from earlier the same day TECHNIQUE: Prior to contrast administration, noncontrast localization images were obtained. Subsequently, multidetector volumetric imaging was performed from the thoracic inlet to below the diaphragms following the administration of 65 mL Omnipaque 350 intravenous contrast. No contrast reaction reported Sagittal, coronal, and MIP oblique sagittal reformatted images were obtained on the CT workstation, uploaded to PACS, and reviewed. This CT examination was performed using dose optimization techniques as appropriate, variously including the following: *Automated exposure control *Adjustment of mA and/or kV according to patient size (this includes techniques or standardized protocols for targeted exams where dose is matched to indication/reason for exam; i.e. extremities or head) *Use of iterative reconstruction technique Total exam dose-length product 221 mGy-cm FINDINGS: QUALITY OF STUDY/CONTRAST BOLUS: Satisfactory. PULMONARY ARTERIES: No pulmonary emboli. THORACIC AORTA: No aneurysm. LUNG: Scattered areas of bronchial wall thickening and bronchial soft tissue opacification or mucus plugging. Mild right lower lobe bronchiectasis. 5 mm right lower lobe nodule axial image 339 series 7. Larger areas of atelectasis or small infiltrate in the medial segment of the right middle lobe and inferior segment of the lingula and bibasilar lower lobes. PLEURA: No pleural effusion or pneumothorax. MEDIASTINUM: Normal heart size. No pericardial effusion. Shotty mediastinal and bilateral hilar lymph nodes. No enlarged hilar or mediastinal lymphadenopathy. No evidence of septal bowing or right heart strain. Small esophageal hernia. CORONARY ARTERY CALCIFICATION: Moderate CHEST WALL/AXILLA: No axillary or internal mammary lymphadenopathy. OSSEOUS STRUCTURES: No acute or suspicious osseous abnormality. UPPER ABDOMEN: Unremarkable. No reflux of contrast into the hepatic veins to suggest elevated right heart pressures. CT/CT angio chest PE protocol IMPRESSION: No evidence of pulmonary embolism. Extensive airways disease with bronchial wall thickening and soft tissue opacification or mucus plugging. Mild right lower lobe bronchiectasis. 5 mm right lower lobe nodule. Atelectasis or small infiltrates at the lung bases. According to the UPDATED 2017 Fleischner Society recommendations, the advised follow-up imaging for less than 6 mm solid nodule,: Low risk, no chest CT follow-up and high risk, optional chest CT follow-up in one year. Nodule is stable, no additional chest CT follow-up recommended. VTE: negative
--- NOTE | 2023-05-29 11:17 | ED.GENADULT ---
HPI - General Adult General Chief complaint: Upper Respiratory Symptoms Stated complaint: coughing blood Time Seen by Provider: 05/29/23 13:06 Source: patient and other (Son, Radames) Mode of arrival: ambulatory Limitations: no limitations History of Present Illness HPI narrative: 72-year-old female who presents emergency department for evaluation of hemoptysis. She states she was not feeling ill in any way. This morning she coughed up a golf ball-sized blood clot ?. She states since then every time she coughs she brings up a small amount of thin, bright red blood. See patient denied fever or chills. She states that she had rhinorrhea yesterday and a sore throat but these symptoms resolved. She denied chest pain, or shortness of breath. She has been noting dyspnea on exertion over the past several weeks. The patient states that she lost 5 lb unintentionally. She denied night sweats she has not gone on any long trips. She has not noticed any pain or swelling in her lower extremities The patient is a former smoker and she stop smoking 2006. She states she was smoke 1 pack of cigarettes per day for approximately 15 years. Related Data Home Medications Medication Instructions Recorded Confirmed cholecalciferol (vitamin D3) 50 50 mcg PO DAILY 11/13/20 03/04/23 mcg (2,000 unit) capsule calcium carbonate 500 mg calcium 500 mg PO DAILY 01/20/21 03/04/23 (1,250 mg) chewable tablet (Calcium 500) multivitamin 1 tab PO DAILY 01/20/21 03/04/23 Previous Rx's Medication Instructions Recorded lovastatin 40 mg tablet 80 mg PO QPM #180 tabs 01/08/23 Allergies Allergy/AdvReac Type Severity Reaction Status Date / Time codeine Allergy Severe Vomiting Verified 05/29/23 11:13 [facility] [place] Past Medical History Medical History Dyslipidemia Impaired fasting glucose Menopause Osteopenia of left femoral neck Tubular adenoma of colon Surgical History History of section History of surgery Hx of colonoscopy Family History Family History Father Anemia Mother COPD (chronic obstructive pulmonary disease) Son No problems noted. Daughter No problems noted. 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 Cognitive needs: No Hearing needs: No Vision needs: Yes Physical Exam ED Vital Signs: Vital Signs - 24 hr 05/29/23 11:13 05/29/23 12:43 05/29/23 12:43 Temperature 98.4 F 97.9 F Pulse Rate 102 H 86 Respiratory Rate 16 16 Blood Pressure 161/71 H Pulse Oximetry 94 94 95 Oxygen Delivery Method Room Air Room Air Room Air 05/29/23 14:05 Temperature Pulse Rate 95 Respiratory Rate 20 Blood Pressure 167/80 H Pulse Oximetry 96 Oxygen Delivery Method Room Air BMI result Body Mass Index 27.1 Vital signs revealed an elevated pulse of 102, elevated blood pressure 161/74 and O2 saturation of 94% on room air pain Exam: General: Awake, alert in no distress. The patient is coughing up small amounts of bright red blood Head: Normocephalic, atraumatic EENT: PERRL, Lids normal, sclera normal, conjunctiva normal, nose normal , ears normal, throat without erythema or exudates Neck: Supple, no adenopathy, trachea midline and nontender Lung: breath sounds symmetric, no wheezing, rales or rhonchi Chest: symmetric movement, nontender Heart: regular rate and rhythm, normal S1, S2 no murmurs or rubs Abdomen: soft, non-tender, nondistended, normal bowel sounds Back: no vertebral tenderness, no CVAT Extremities: no deformities, moves all extremities symmetrically Skin: no rashes, no lesion, normal color and warmth Neuro: Awake, alert, oriented, normal speech, cranial nerves intact, moves all extremities symmetrically Psych: Pleasant, cooperative Course Reevaluation(s) Reevaluation #1: 72-year-old female presents for evaluation of coughing up blood. ? Patient reports that she up a for blood clots morning has been small multiple her since. Reports some shortness of breath exertion which she reports baseline. She is not anticoagulated. Plan for labs, chest x-ray. Vital signs are stable Time: 11:18 Medications Administered Discontinued Medications Generic Name Dose Route Start Last Admin Trade Name Freq PRN Reason Stop Dose Admin Sodium Chloride 1,000 mls @ 999 mls/hr 05/29/23 13:22 05/29/23 15:08 Ns IV 05/29/23 14:22 Infused .Q1H1M STA Infusion Iohexol 65 ml 05/29/23 14:11 05/29/23 14:11 Iohexol 350 Mg/Ml 100 Ml Infus..Btl IV 05/29/23 14:12 65 ml ONCE ONE Administration Medical Decision Making Medical Decision Making MDM Narrative: 72-year-old female with a history of dyslipidemia, former smoker who quit in 2006 but has a 15 pack-year history of smoking, who presents emergency department for evaluation of hemoptysis which started this morning. Patient's review of system was relatively unremarkable, she had a 5 lb weight loss which was unintentional and has been having dyspnea on exertion otherwise she denied fever, chills, weight loss, pain or swelling in her extremities. Following evaluation was ordered CBC, CMP, COVID-19, lipase, PT/INR, PTT, D-dimer, two view chest x-ray, CT pulmonary angiogram PE protocol, normal saline x1 L, IV insertion. 1333: Patient's laboratory evaluation revealed an elevated glucose of 148, elevated bilirubin of 2.8 otherwise unremarkable pain Chest x-ray was unremarkable. 1546: CT angiogram pulmonary embolism protocol was negative for pulmonary embolism a large mass. Patient has mild bronchiectasis of the right lower lobe with a small 5 mm right lower lobe nausea and larger area at atelectasis or infiltrate in the medial segment of the right middle lobe and inferior segment of the lingular and bibasilar lower lobes. Given the patient's new onset of hemoptysis and the potential for malignancy versus infectious process, I did order blood cultures x2, lactic acid, ceftriaxone 1 g IV and azithromycin 500 mg IV. I did discuss admission over tiger text with the covering hospitalist, Dr. Beltran and the patient will be admitted for further management. Differential Diagnosis Differential Diagnoses: The differential diagnosis associated with the presentation includes Differential diagnosis includes was not limited to acute bronchitis, acute pneumonia, chronic bronchitis, tuberculosis, lung cancer, bronchiectasis, pulmonary embolism, vasculitis Admission/Observation Consideration of admission/observation: Escalation of care including admission/observation considered Lab Data 05/29/23 11:30 05/29/23 11:30 Labs: Lab Results 05/29/23 05/29/23 05/29/23 Range/Units 11:30 11:30 11:30 WBC 7.8 (4.8-10.8) X10*3/uL RBC 5.14 (4.20-5.50) X10*6/uL Hgb 15.6 (12.0-16.0) g/dl Hct 48.3 H (37.0-47.0) % MCV 94.0 (80.0-98.0) fL MCH 30.4 (27.0-33.0) pg MCHC 32.3 (31.0-35.0) g/dl RDW 12.1 (11.0-16.0) % Plt Count 261 (160-400) X10*3/uL MPV 9.4 (9.4-12.3) fL Immature Gran % (Auto) 0.1 (0.0-0.4) % Neut % (Auto) 79.3 H (45-73) % Lymph % (Auto) 13.9 L (20-40) % [place] % (Auto) 5.7 (2-11) % Eos % (Auto) 0.5 (0-4) % Baso % (Auto) 0.5 (0-2) % Lymph # (Auto) 1.1 L (1.2-4.9) X10*3/uL [place] # (Auto) 0.5 (0.1-1.2) X10*3/uL Eos # (Auto) 0.0 (0.0-0.4) X10*3/uL Baso # (Auto) 0.0 (0.0-0.2) X10*3/uL Abs Immat Gran (auto) 0.01 (0.00-0.03) X10*3/uL Absolute Neuts (auto) 6.2 (2.0-8.3) x10*3/uL Absolute Nucleated RBC 0.000 (0.0-0.012) X10*3/uL Nucleated RBC % (auto) 0.0 (0.0-0.2) /100WBC PT 11.9 (11.1-13.3) SEC INR 1.0 (0.9-1.1) APTT 27.3 (26.0-36.4) SEC D-Dimer High Sensitivty 161 NG/ML Sodium 141 (135-145) mmol/L Potassium 4.2 (3.3-5.1) mmol/L Chloride 106 (96-108) mmol/L Carbon Dioxide 25 (22-29) mmol/L Anion Gap 14 (12-20) BUN 14 (9-16) mg/dL Creatinine 0.75 (0.5-1.4) mg/dL Estim Creat Clear Calc 62.6 Estimated GFR > 60 Random Glucose 148 H (60-115) mg/dL Calcium 10.0 (8.4-10.2) mg/dL Total Bilirubin 0.6 (0.0-1.0) mg/dL AST 17 (5-31) U/L ALT 11 (0-31) U/L Alkaline Phosphatase 76 (39-117) U/L Total Protein 7.2 (6.5-8.0) g/dL Albumin 4.1 (3.5-5.0) g/dL Lipase 28 (8-78) U/L COVID-19 ([facility]KITA) (Negative) COVID-19 Clin Com 05/29/23 Range/Units 11:30 WBC (4.8-10.8) X10*3/uL RBC (4.20-5.50) X10*6/uL Hgb (12.0-16.0) g/dl Hct (37.0-47.0) % MCV (80.0-98.0) fL MCH (27.0-33.0) pg MCHC (31.0-35.0) g/dl RDW (11.0-16.0) % Plt Count (160-400) X10*3/uL MPV (9.4-12.3) fL Immature Gran % (Auto) (0.0-0.4) % Neut % (Auto) (45-73) % Lymph % (Auto) (20-40) % [place] % (Auto) (2-11) % Eos % (Auto) (0-4) % Baso % (Auto) (0-2) % Lymph # (Auto) (1.2-4.9) X10*3/uL [place] # (Auto) (0.1-1.2) X10*3/uL Eos # (Auto) (0.0-0.4) X10*3/uL Baso # (Auto) (0.0-0.2) X10*3/uL Abs Immat Gran (auto) (0.00-0.03) X10*3/uL Absolute Neuts (auto) (2.0-8.3) x10*3/uL Absolute Nucleated RBC (0.0-0.012) X10*3/uL Nucleated RBC % (auto) (0.0-0.2) /100WBC PT (11.1-13.3) SEC INR (0.9-1.1) APTT (26.0-36.4) SEC D-Dimer High Sensitivty NG/ML Sodium (135-145) mmol/L Potassium (3.3-5.1) mmol/L Chloride (96-108) mmol/L Carbon Dioxide (22-29) mmol/L Anion Gap (12-20) BUN (9-16) mg/dL Creatinine (0.5-1.4) mg/dL Estim Creat Clear Calc Estimated GFR Random Glucose (60-115) mg/dL Calcium (8.4-10.2) mg/dL Total Bilirubin (0.0-1.0) mg/dL AST (5-31) U/L ALT (0-31) U/L Alkaline Phosphatase (39-117) U/L Total Protein (6.5-8.0) g/dL Albumin (3.5-5.0) g/dL Lipase (8-78) U/L COVID-19 ([facility]ITA) Negative (Negative) COVID-19 Clin Com See Note Independent Interpretation I performed an independent interpretation of an: Plain X-Ray Interpretation: My independent interpretation patient's two view chest x-ray is as follows: No acute disease to explain her hemoptysis Radiology Impression Discussion of test interpretation with radiology: I have reviewed the radiologist's reading. Radiologist Impression: XR chest 2V IMPRESSION: Well-inflated lungs. No evidence for acute disease in the chest. Dictated By:Marcia Astudillo MD CT ANGIOGRAM OF THE CHEST WITH AND WITHOUT CONTRAST (CT PULMONARY ANGIOGRAM FOR PE) CLINICAL INFORMATION: Reason for Exam Hematemesis, rule out PE, malignancy FINDINGS: QUALITY OF STUDY/CONTRAST BOLUS: Satisfactory. PULMONARY ARTERIES: No pulmonary emboli. THORACIC AORTA: No aneurysm. LUNG: Scattered areas of bronchial wall thickening and bronchial soft tissue opacification or mucus plugging. Mild right lower lobe bronchiectasis. 5 mm right lower lobe nodule axial image 339 series 7. Larger areas of atelectasis or small infiltrate in the medial segment of the right middle lobe and inferior segment of the lingula and bibasilar lower lobes. PLEURA: No pleural effusion or pneumothorax. MEDIASTINUM: Normal heart size. No pericardial effusion. Shotty mediastinal and bilateral hilar lymph nodes. No enlarged hilar or mediastinal lymphadenopathy. No evidence of septal bowing or right heart strain. Small esophageal hernia. CORONARY ARTERY CALCIFICATION: Moderate CHEST WALL/AXILLA: No axillary or internal mammary lymphadenopathy. OSSEOUS STRUCTURES: No acute or suspicious osseous abnormality. UPPER ABDOMEN: Unremarkable. No reflux of contrast into the hepatic veins to suggest elevated right heart pressures. CT/CT angio chest PE protocol IMPRESSION: No evidence of pulmonary embolism. Extensive airways disease with bronchial wall thickening and soft tissue opacification or mucus plugging. Mild right lower lobe bronchiectasis. 5 mm right lower lobe nodule. Atelectasis or small infiltrates at the lung bases. According to the UPDATED 2017 Fleischner Society recommendations, the advised follow-up imaging for less than 6 mm solid nodule,: Low risk, no chest CT follow-up and high risk, optional chest CT follow-up in one year. Nodule is stable, no additional chest CT follow-up recommended. VTE: negative Dictated By:Marcia Astudillo MD Critical Care Time Critical Care Time Critical Care Time: Yes Total Critical Care Time: 35 Attestation: Critical Care: The patient was critically ill with a high probability of imminent or life threatening deterioration. I spent greater than 30 minutes of discontinuous time evaluating the patient,delivering critical care at the bedside, discussing and evaluating pertinent data with consultants. Critical care time does not include time spent performing separately billable procedures or teaching. Total time spent performing critical care was 35 minutes. Discharge Plan Discharge Patient Disposition: Admitted As Inpatient Prescriptions: No Action lovastatin 40 mg tablet 80 mg PO QPM Qty: 180 1RF cholecalciferol (vitamin D3) 50 mcg (2,000 unit) capsule 50 mcg PO DAILY calcium carbonate [Calcium 500] 500 mg calcium (1,250 mg) tablet,chewable 500 mg PO DAILY multivitamin Tablet 1 tab PO DAILY
[2023-05-29 11:36] LABS: MANUAL DIFF FLAG NO
[2023-05-29 11:41] LABS: Basophils Percent Auto 0.5 % (0-2); Eosinophils Percent Auto 0.5 % (0-4); Hematocrit 48.3 % (37.0-47.0); Hemoglobin 15.6 g/dl (12.0-16.0); Imm Gran Abs Auto 0.01 X10*3/uL (0.00-0.03); Imm Gran Pct Auto 0.1 % (0.0-0.4); Lymphocytes Absolute Auto 1.1 X10*3/uL (1.2-4.9); Lymphocytes Percent Auto 13.9 % (20-40); Mean Corpuscular HGB Conc 32.3 g/dl (31.0-35.0); Mean Corpuscular Hemoglobin 30.4 pg (27.0-33.0); Mean Platelet Volume 9.4 fL (9.4-12.3); Monocytes Absolute Auto 0.5 X10*3/uL (0.1-1.2); Monocytes Percent Auto 5.7 % (2-11); Neutrophils Absolute Auto 6.2 x10*3/uL (2.0-8.3); Neutrophils Percent Auto 79.3 % (45-73); Platelet Count 261 X10*3/uL (160-400); Red Blood Count 5.14 X10*6/uL (4.20-5.50); Red Cell Distribution Width 12.1 % (11.0-16.0); White Blood Count 7.8 X10*3/uL (4.8-10.8)
[2023-05-29 11:50] LABS: Prothrombin Time 11.9 SEC (11.1-13.3)
[2023-05-29 11:51] LABS: COVID-19 Test Negative (Negative); IDNOW Serial# 08D9AD1C
[2023-05-29 11:52] LABS: Partial Thromboplastin Time 27.3 SEC (26.0-36.4)
[2023-05-29 12:19] LABS: Alanine Aminotransferase 11 U/L (0-31); Albumin Level 4.1 g/dL (3.5-5.0); Alkaline Phosphatase 76 U/L (39-117); Anion Gap 14 (12-20); Aspartate Amino Transferase 17 U/L (5-31); Bilirubin Total 0.6 mg/dL (0.0-1.0); Blood Urea Nitrogen 14 mg/dL (9-16); Carbon Dioxide 25 mmol/L (22-29); Chloride 106 mmol/L (96-108); Creatinine Clr Calc Pharmacy 62.6; Estimated Glomerular Filt Rate > 60; Glucose Random 148 mg/dL (60-115); Lipase 28 U/L (8-78); Potassium 4.2 mmol/L (3.3-5.1); Sodium 141 mmol/L (135-145); Total Protein 7.2 g/dL (6.5-8.0)
--- NOTE | 2023-05-29 12:51 | PC.NURSE ---
pt a&ox3, vss, nsr on the surveillance monitor, pt coming in after coughing up blood the size of a gold ball. pt verbalizes that the blood this morning was bright red. pt coughed up blood during initial assessment - bright red blood presented. pt denies any pain on inspiration but feels slightly SOBOE. pt denies n/v/dizziness at this time. pt currently sitting in bed trying to clear throat. lung sounds clear throughout. call singh placed within reach. will continue to monitor.
[2023-05-29 13:53] LABS: D Dimer High Sensitivity 161 NG/ML
[2023-05-29] MEDS: 0.9 % Sodium Chloride 1,000 ML 999 ML IV (14:06)
--- NOTE | 2023-05-29 14:07 | PC.NURSE ---
pt returned from CT scan, playground monitor applied0 nsr on monitor, vss, pt denies pain/discomfort, ivf hung per order, will continue to monitor
[2023-05-29] MEDS: iohexoL 350 MG/ML 100 ML INFUS..BTL 65 ML IV (14:11)
--- NOTE | 2023-05-29 14:42 | PC.NURSE ---
pt's vss, nsr on the ekg monitor tech. 20gIV placed in the right AC by previous nurse. IVF still hung and running. . productive cough with blood tinged sputum present. pt denies pain on inspiration. call singh placed within reach.
--- NOTE | 2023-05-29 15:23 | PC.NURSE ---
IVF infused and d/c'd. called kitchen to get order put in as pt will be getting admitted per ed provider.
--- NOTE | 2023-05-29 15:57 | PC.NURSE ---
[employer] drawing labs.
[2023-05-29] MEDS: cefTRIAXone sodium 1 GM in 0.9 % Sodium Chloride 50 ML IV (16:20)
--- NOTE | 2023-05-29 16:27 | PC.NURSE ---
medication administered per provider order.
--- NOTE | 2023-05-29 16:37 | PM.IMHP ---
History of Present Illness Date of Service: 05/29/23 Chief Complaint: Hemoptysis 72-year-old female who presents emergency department for evaluation of hemoptysis.? She states she was not feeling ill in any way.? This morning she coughed up a golf ball-sized blood clot ?.? She states since then every time she coughs she brings up a small amount of thin, bright red blood.? See patient denied fever or chills.? She states that she had rhinorrhea yesterday and a sore throat but these symptoms resolved.? She denied chest pain, or shortness of breath.? She has been noting dyspnea on exertion over the past several weeks.? The patient states that she lost 5 lb unintentionally.? She denied night sweats she has not gone on any long trips.? She has not noticed any pain or swelling in her lower extremities.The patient is a former smoker and she stop smoking 2006.? She states she was smoke 1 pack of cigarettes per day for approximately 15 years. Review of Systems Review of Systems: Denies chest pain Denies shortness of breath Denies nausea vomiting diarrhea Denies fever chills [facility] Medical History Dyslipidemia Impaired fasting glucose Menopause Osteopenia of left femoral neck Tubular adenoma of colon Family History Father Anemia Mother COPD (chronic obstructive pulmonary disease) Son No problems noted. Daughter No problems noted. Brother Mental health disorder Surgical History History of section History of surgery Hx of colonoscopy Social History Household Members: Family Housing: House Alcohol intake: current Alcohol intake frequency: holidays/special occasions only Patient Tobacco Use Status: Former Tobacco user Quit Date: 2006 Years Smoked: 35 yrs Smoked in Last 30 Days: No e-Cigarette/Vaping Use: Never Used Use of substances other than those prescribed or required for medical reasons: No Advance Directives: Yes Advance Directives on File: Yes Advance Directives Date on File: 10/01/22 service: No Current occupational status: employed 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 Cognitive needs: No Hearing needs: No Vision needs: Yes Meds Allergies Allergy/AdvReac Type Severity Reaction Status Date / Time codeine Allergy Severe Vomiting Verified 05/29/23 11:13 Active Medications: Current Medications Azithromycin 500 mg/ Sodium (Chloride) 250 mls @ 125 mls/hr IV ONCE ONE Stop: 05/29/23 17:15 Ceftriaxone Sodium 1 gm/ (Sodium Chloride) 50 mls @ 100 mls/hr IV DAILY ONE Stop: 05/29/23 17:03 Azithromycin 500 mg/ Sodium (Chloride) 250 mls @ 125 mls/hr IV DAILY ONE Stop: 05/29/23 18:33 Lorazepam (Lorazepam 0.5 Mg Tablet) 0.5 mg PO Q6H PRN PRN Reason: anxiety/restlessness Sodium Chloride (0.9 % Sodium Chloride Flush 3 Ml Syringe) [facility] Medications Medication Instructions Recorded Confirmed Last Taken Type cholecalciferol (vitamin D3) 50 50 mcg PO DAILY 11/13/20 03/04/23 Unknown History mcg (2,000 unit) capsule calcium carbonate 500 mg calcium 500 mg PO DAILY 01/20/21 03/04/23 Unknown History (1,250 mg) chewable tablet (Calcium 500) multivitamin 1 tab PO DAILY 01/20/21 03/04/23 Unknown History Physical Exam Vital Signs and Narrative: Vital Signs: Last Vital Signs Temp 97.9 F 05/29/23 15:47 Pulse 92 05/29/23 15:47 Resp 16 05/29/23 15:47 BP 168/91 H 05/29/23 15:47 Pulse Ox 95 05/29/23 15:47 O2 Del Method Room Air 05/29/23 15:47 BMI result Body Mass Index 27.1 Const: Other: Awake alert no acute distress Resp: Other: Diminished throughout with coarse rhonchi mid jorgensen Cardio: Other: No S4; positive S1-S2; no S3 murmurs rubs or gallops GI: Other: Soft nontender nondistended normoactive bowel sounds Neuro: Other: Cranial nerves 2-12 grossly intact as tested. Motor is 5 5 extremities. Sensation is Extrem: Other: No edema bilaterally Results Labs 05/29/23 11:30 05/29/23 11:30 Labs: Laboratory Results - last 24 hr 05/29/23 05/29/23 05/29/23 11:30 11:30 11:30 MCV 94.0 MCH 30.4 MCHC 32.3 RDW 12.1 Plt Count 261 MPV 9.4 Immature Gran % (Auto) 0.1 Neut % (Auto) 79.3 H Lymph % (Auto) 13.9 L Coleman % (Auto) 5.7 Eos % (Auto) 0.5 Baso % (Auto) 0.5 Lymph # (Auto) 1.1 L Coleman # (Auto) 0.5 Eos # (Auto) 0.0 Baso # (Auto) 0.0 Abs Immat Gran (auto) 0.01 Absolute Neuts (auto) 6.2 Absolute Nucleated RBC 0.000 Nucleated RBC % (auto) 0.0 PT 11.9 INR 1.0 APTT 27.3 D-Dimer High Sensitivty 161 Anion Gap 14 Estim Creat Clear Calc 62.6 Estimated GFR > 60 Random Glucose 148 H Lactic Acid Calcium 10.0 Total Bilirubin 0.6 AST 17 ALT 11 Alkaline Phosphatase 76 Total Protein 7.2 Albumin 4.1 Lipase 28 COVID-19 ([facility]) COVID-19 [employer] Com 05/29/23 05/29/23 11:30 15:46 MCV MCH MCHC RDW Plt Count MPV Immature Gran % (Auto) Neut % (Auto) Lymph % (Auto) Coleman % (Auto) Eos % (Auto) Baso % (Auto) Lymph # (Auto) Coleman # (Auto) Eos # (Auto) Baso # (Auto) Abs Immat Gran (auto) Absolute Neuts (auto) Absolute Nucleated RBC Nucleated RBC % (auto) PT INR APTT D-Dimer High Sensitivty Anion Gap Estim Creat Clear Calc Estimated GFR Random Glucose Lactic Acid 1.0 Calcium Total Bilirubin AST ALT Alkaline Phosphatase Total Protein Albumin Lipase COVID-19 ([facility]) Negative COVID-19 Clin Com See Note Imaging Radiologist's Impressions: Impressions Chest X-Ray 05/29/23 12:21 IMPRESSION: Well-inflated lungs. No evidence for acute disease in the chest. Chest CTA 05/29/23 14:15 IMPRESSION: No evidence of pulmonary embolism. Extensive airways disease with bronchial wall thickening and soft tissue opacification or mucus plugging. Mild right lower lobe bronchiectasis. 5 mm right lower lobe nodule. Atelectasis or small infiltrates at the lung bases. According to the UPDATED 2017 Fleischner Society recommendations, the advised follow-up imaging for less than 6 mm solid nodule,: Low risk, no chest CT follow-up and high risk, optional chest CT follow-up in one year. Nodule is stable, no additional chest CT follow-up recommended. VTE: negative Assessment and Plan (1) Hemoptysis: Status: Acute (2) Pneumonia: Status: Acute (3) Dyslipidemia: Status: Acute Plan 72-year-old asymptomatic female presents to the emergency room with 1 day of colton hemoptysis without any preceding illnesses or travel. She does admit to a smoking history of approximately 15 pack years quitting in 2006. She does endorse a 5 lb unintentional weight loss; she states she is mildly short of breath when she walks her dog with this is nothing new. CTA done in ER negative for clot; positive for right lower lobe bronchiectasis with small infiltrates of bilateral bases 1. Hemoptysis/pneumonia -admitted to patient monitor sats -azithromycin/ceftriaxone (1) -follow daily CBC -pulmonary consult in a.m. -attempt to obtain a sputum for cellblock and culture [facility] (related to the possible diagnoses) 2. Hyperlipidemia -continue statin outpatient dosing Full code Pneumatics Patient will require 2 midnights of inpatient stay going forward for treatment of pneumonia with IV antibiotics and further workup of her mopped assist. This cannot be achieved a lesser acute setting Time Spent With Patient Time: Total time managing care of this patient today ____ minutes. Quality Stroke Does the patient have a stroke diagnosis?: No VTE Prior VTE?: No VTE Risk Level:: Medical - moderate - high VTE Device Contraindication: N/A - Device Ordered VTE Drug Contraindication: Treatment Not Indicated
[2023-05-29] MEDS: Azithromycin 500 MG in 0.9 % Sodium Chloride 250 ML 125 MG IV (17:08)
[2023-05-29 17:12] LABS: Hematocrit 44.9 % (37.0-47.0); Hemoglobin 14.5 g/dl (12.0-16.0); Mean Corpuscular HGB Conc 32.3 g/dl (31.0-35.0); Mean Corpuscular Hemoglobin 30.7 pg (27.0-33.0); Mean Corpuscular Volume 95.1 fL (80.0-98.0); Mean Platelet Volume 9.5 fL (9.4-12.3); Platelet Count 246 X10*3/uL (160-400); Red Blood Count 4.72 X10*6/uL (4.20-5.50); White Blood Count 8.3 X10*3/uL (4.8-10.8)
--- NOTE | 2023-05-29 17:13 | PC.NURSE ---
medication administered per provider order.
--- NOTE | 2023-05-29 17:14 | PHA.MEDREC ---
Pharmacy Consult ? Medication Reconciliation Pharmacy has completed the medication reconciliation.
--- NOTE | 2023-05-29 17:40 | PC.NURSE ---
report given to RN on [facility]. transport contacted to bring pt upstairs.
--- NOTE | 2023-05-29 18:19 | PC.NURSE ---
pt transported upstairs by oil transport driver.
[2023-05-29] MEDS: Pravastatin Sodium 80 MG TABLET PO (20:24)
[2023-05-29] MEDS: 0.9 % Sodium Chloride Flush 3 ML SYRINGE IVFLUSH (20:24)
[2023-05-29] MEDS: LORazepam 0.5 MG TABLET PO (21:54)
[2023-05-30 03:34] VITALS: BP 155/77; PULSE 72; RESP 18; TEMP 36.4; O2SAT 93
[2023-05-30 07:11] LABS: MANUAL DIFF FLAG NO
[2023-05-30 07:14] VITALS: BP 140/82; PULSE 89; RESP 16; TEMP 36.7; O2SAT 92
[2023-05-30 07:19] LABS: Basophils Percent Auto 0.7 % (0-2); Eosinophils Absolute Auto 0.2 X10*3/uL (0.0-0.4); Hematocrit 46.1 % (37.0-47.0); Hemoglobin 14.8 g/dl (12.0-16.0); Imm Gran Abs Auto 0.02 X10*3/uL (0.00-0.03); Imm Gran Pct Auto 0.3 % (0.0-0.4); Lymphocytes Absolute Auto 1.5 X10*3/uL (1.2-4.9); Lymphocytes Percent Auto 25.1 % (20-40); Mean Corpuscular HGB Conc 32.1 g/dl (31.0-35.0); Mean Corpuscular Hemoglobin 30.3 pg (27.0-33.0); Mean Corpuscular Volume 94.5 fL (80.0-98.0); Mean Platelet Volume 9.7 fL (9.4-12.3); Monocytes Absolute Auto 0.4 X10*3/uL (0.1-1.2); Monocytes Percent Auto 7.4 % (2-11); Neutrophils Absolute Auto 3.8 x10*3/uL (2.0-8.3); Neutrophils Percent Auto 63.5 % (45-73); Platelet Count 249 X10*3/uL (160-400); Red Blood Count 4.88 X10*6/uL (4.20-5.50); Red Cell Distribution Width 12.1 % (11.0-16.0)
[2023-05-30 07:43] LABS: Alanine Aminotransferase 9 U/L (0-31); Albumin Level 3.7 g/dL (3.5-5.0); Alkaline Phosphatase 68 U/L (39-117); Anion Gap 10 (12-20); Aspartate Amino Transferase 15 U/L (5-31); Bilirubin Total 0.8 mg/dL (0.0-1.0); Blood Urea Nitrogen 9 mg/dL (9-16); Calcium 9.6 mg/dL (8.4-10.2); Carbon Dioxide 27 mmol/L (22-29); Chloride 108 mmol/L (96-108); Creatinine Clr Calc Pharmacy 68.1; Estimated Glomerular Filt Rate > 60; Glucose Fasting 109 mg/dL (60-99); Sodium 141 mmol/L (135-145); Total Protein 6.5 g/dL (6.5-8.0)
[2023-05-30] MEDS: 0.9 % Sodium Chloride Flush 3 ML SYRINGE IVFLUSH ×3 (08:32→20:11)
--- NOTE | 2023-05-30 08:32 | MHC.CM.PN ---
CM met with Patient at bedside and addressed IMM with her, providing Patient with the original and placing a copy on the chart. 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 Home self care is the goal and CM has initiated and will follow for dc planning. PCP is Dr. Kylie Lira.
[2023-05-30 11:19] VITALS: BP 145/67; PULSE 84; RESP 16; TEMP 36.4; O2SAT 91
[2023-05-30 15:48] VITALS: BP 141/65; PULSE 86; RESP 18; TEMP 36.4; O2SAT 93
--- NOTE | 2023-05-30 16:02 | HO.PM.IMPN ---
Subjective Subjective Date of Service: 05/30/23 Interval History: Continues with hemoptysis; worse when rises from supine. Hemoglobin stable. No acute complaints Review of Systems Denies chest pain Denies shortness of breath Denies nausea vomiting diarrhea Denies fever chills Physical Exam Vital Signs: Vital Signs: Last Vital Signs Temp 97.6 F 05/30/23 15:48 Pulse 86 05/30/23 15:48 Resp 18 05/30/23 15:48 BP 141/65 H 05/30/23 15:48 Pulse Ox 93 05/30/23 15:48 O2 Del Method Room Air 05/30/23 15:48 BMI result Body Mass Index 27.1 Const: Other: Awake alert no acute distress Resp: Other: Diminished throughout with coarse rhonchi mid jorgensen Cardio: Other: No S4; positive S1-S2; no S3 murmurs rubs or gallops GI: Other: Soft nontender nondistended normoactive bowel sounds Neuro: Other: Cranial nerves 2-12 grossly intact as tested. Motor is 5 5 extremities. Sensation is Extrem: Other: No edema bilaterally Objective Data Active Medications Azithromycin 500 mg/ Sodium (Chloride) 250 mls @ 125 mls/hr IV Q24H ROSARIO Ceftriaxone Sodium 1 gm/ (Sodium Chloride) 50 mls @ 100 mls/hr IV Q24H ROSARIO Lorazepam (Lorazepam 0.5 Mg Tablet) 0.5 mg PO Q6H PRN PRN Reason: anxiety/restlessness Last Admin: 05/29/23 21:54 Dose: 0.5 mg Documented By: NETTA Pravastatin Sodium (Pravastatin Sodium 80 Mg Tablet) 80 mg PO BEDTIME [facility] Last Admin: 05/29/23 20:24 Dose: 80 mg Documented By: NETTA Sodium Chloride (0.9 % Sodium Chloride Flush 3 Ml Syringe) 3 ml IVFLUSH QSHIFT [facility] Last Admin: 05/30/23 08:32 Dose: 3 ml Documented By: DERRICK Labs 05/30/23 06:43 05/30/23 06:43 Labs: Laboratory Results - last 24 hr 05/29/23 05/29/23 05/30/23 15:46 16:56 06:43 MCV 95.1 94.5 MCH 30.7 30.3 MCHC 32.3 32.1 RDW 12.0 12.1 Plt Count 246 249 MPV 9.5 9.7 Immature Gran % (Auto) 0.3 Neut % (Auto) 63.5 Lymph % (Auto) 25.1 [place] % (Auto) 7.4 Eos % (Auto) 3.0 Baso % (Auto) 0.7 Lymph # (Auto) 1.5 [place] # (Auto) 0.4 Eos # (Auto) 0.2 Baso # (Auto) 0.0 Abs Immat Gran (auto) 0.02 Absolute Neuts (auto) 3.8 Absolute Nucleated RBC 0.000 0.000 Nucleated RBC % (auto) 0.0 0.0 Anion Gap Estim Creat Clear Calc Estimated GFR Fasting Glucose Lactic Acid 1.0 Calcium Total Bilirubin AST ALT Alkaline Phosphatase Total Protein Albumin 05/30/23 06:43 MCV MCH MCHC RDW Plt Count MPV Immature Gran % (Auto) Neut % (Auto) Lymph % (Auto) [place] % (Auto) Eos % (Auto) Baso % (Auto) Lymph # (Auto) [place] # (Auto) Eos # (Auto) Baso # (Auto) Abs Immat Gran (auto) Absolute Neuts (auto) Absolute Nucleated RBC Nucleated RBC % (auto) Anion Gap 10 L Estim Creat Clear Calc 68.1 Estimated GFR > 60 Fasting Glucose 109 H Lactic Acid Calcium 9.6 Total Bilirubin 0.8 AST 15 ALT 9 Alkaline Phosphatase 68 Total Protein 6.5 Albumin 3.7 Microbiology Microbiology Results: Microbiology 05/29/23 21:56 Gram Stain - Final Sputum - Expectorated Sputum Culture - Final Assessment and Plan (1) Hemoptysis: Status: Acute (2) Pneumonia: Status: Acute Plan 72-year-old asymptomatic female presents to the emergency room with 1 day of colton hemoptysis without any preceding illnesses or travel. She does admit to a smoking history of approximately 15 pack years quitting in 2006. She does endorse a 5 lb unintentional weight loss; she states she is mildly short of breath when she walks her dog with this is nothing new. CTA done in ER negative for clot; positive for right lower lobe bronchiectasis with small infiltrates of bilateral bases 1. Hemoptysis/pneumonia -discussed with Pulmonary; given right middle lobe bronchiectasis suspicion for VICTOR M -continue azithromycin ceftriaxone IV and additional 24 hours (2 ( -follow daily CBC -p.r.n. Ativan for anxiety/sleep (related to the possible diagnoses) -will arrange outpatient follow-up for bronchoscopy 2. Hyperlipidemia -continue statin outpatient dosing Full code Pneumatics Patient requires ongoing hospitalization for additional 24 hours of IV antibiotic prior to switching to p.o. Time Spent With Patient Time: Total time managing care of this patient today ____ minutes. Quality Stroke Does the patient have a stroke diagnosis?: No VTE Prior VTE?: No VTE Risk Level:: Medical - moderate - high VTE Device Contraindication: N/A - Device Ordered VTE Drug Contraindication: Treatment Not Indicated
[2023-05-30] MEDS: cefTRIAXone sodium 1 GM in 0.9 % Sodium Chloride 50 ML IV (16:11)
[2023-05-30] MEDS: Azithromycin 500 MG in 0.9 % Sodium Chloride 250 ML 125 MG IV (17:23)
[2023-05-30 19:25] VITALS: BP 128/73; PULSE 95; RESP 16; TEMP 36.6; O2SAT 92
[2023-05-30] MEDS: Pravastatin Sodium 80 MG TABLET PO (20:11)
[2023-05-31] VITALS: BP 145/76; PULSE 86; RESP 20; TEMP 36.7; O2SAT 93
[2023-05-31 03:20] VITALS: BP 148/72; PULSE 77; RESP 20; TEMP 36.7; O2SAT 93
[2023-05-31 06:36] LABS: MANUAL DIFF FLAG NO
[2023-05-31 06:49] LABS: Basophils Percent Auto 0.7 % (0-2); Eosinophils Absolute Auto 0.2 X10*3/uL (0.0-0.4); Eosinophils Percent Auto 3.1 % (0-4); Hemoglobin 14.7 g/dl (12.0-16.0); Imm Gran Abs Auto 0.02 X10*3/uL (0.00-0.03); Imm Gran Pct Auto 0.3 % (0.0-0.4); Lymphocytes Absolute Auto 1.3 X10*3/uL (1.2-4.9); Lymphocytes Percent Auto 22.9 % (20-40); Mean Corpuscular Hemoglobin 30.4 pg (27.0-33.0); Mean Corpuscular Volume 95.2 fL (80.0-98.0); Mean Platelet Volume 9.7 fL (9.4-12.3); Monocytes Absolute Auto 0.4 X10*3/uL (0.1-1.2); Monocytes Percent Auto 7.5 % (2-11); Neutrophils Absolute Auto 3.8 x10*3/uL (2.0-8.3); Neutrophils Percent Auto 65.5 % (45-73); Platelet Count 240 X10*3/uL (160-400); Red Blood Count 4.83 X10*6/uL (4.20-5.50); Red Cell Distribution Width 12.1 % (11.0-16.0); White Blood Count 5.8 X10*3/uL (4.8-10.8)
[2023-05-31 07:09] VITALS: BP 154/71; PULSE 80; RESP 12; TEMP 36.4; O2SAT 93
[2023-05-31 09:15] LABS: Alanine Aminotransferase 8 U/L (0-31); Albumin Level 3.5 g/dL (3.5-5.0); Alkaline Phosphatase 68 U/L (39-117); Anion Gap 11 (12-20); Aspartate Amino Transferase 13 U/L (5-31); Bilirubin Total 0.6 mg/dL (0.0-1.0); Blood Urea Nitrogen 11 mg/dL (9-16); Calcium 9.6 mg/dL (8.4-10.2); Carbon Dioxide 29 mmol/L (22-29); Chloride 106 mmol/L (96-108); Creatinine Clr Calc Pharmacy 60.3; Estimated Glomerular Filt Rate > 60; Glucose Fasting 110 mg/dL (60-99); Potassium 4.5 mmol/L (3.3-5.1); Sodium 141 mmol/L (135-145); Total Protein 6.2 g/dL (6.5-8.0)
[2023-05-31] MEDS: 0.9 % Sodium Chloride Flush 3 ML SYRINGE IVFLUSH (09:36)
--- NOTE | 2023-05-31 10:24 | MHC.CM.PN ---
Pt medically cleared for D/C home self-care, pts son to transport.
[2023-05-31 11:10] VITALS: BP 153/67; PULSE 81; RESP 16; TEMP 36.6; O2SAT 93
--- NOTE | 2023-05-31 11:46 | PM.DS ---
DS: Providers Provider Date of Service: 05/31/23 Date of admission: 05/29/23 16:32 Date of discharge: 05/31/23 Primary care physician: Kylie Lira MD DS: Diagnosis Discharge Diagnosis (1) Hemoptysis: Status: Acute (2) Pneumonia: Status: Acute DS: Summary Hospital Course Hospital Course: 72-year-old female who presents emergency department for evaluation of hemoptysis.? She states she was not feeling ill in any way.? This morning she coughed up a golf ball-sized blood clot ?.? She states since then every time she coughs she brings up a small amount of thin, bright red blood.? See patient denied fever or chills.? She states that she had rhinorrhea yesterday and a sore throat but these symptoms resolved.? She denied chest pain, or shortness of breath.? She has been noting dyspnea on exertion over the past several weeks.? The patient states that she lost 5 lb unintentionally.? She denied night sweats she has not gone on any long trips.? She has not noticed any pain or swelling in her lower extremities.The patient is a former smoker and she stop smoking 2006.? She states she was smoke 1 pack of cigarettes per day for approximately [address] angio of the chest failed to demonstrate acute pulmonary emboli; did show extensive bronchiectasis question pneumonia in right middle lobe. Hospital course Patient admitted to telemetry where she remained hemodynamically stable. She was started on ceftriaxone and azithromycin and subjectively stated her cough was less bloody. Bedside consult with pulmonology who agreed with antibiotic treatment outpatient follow-up for bronchoscopy. Discuss case with Dr. Dash (patient request). . . He reviewed case in his office will call patient to set up outpatient follow-up. At this point in time patient is hemodynamically stable and medically acceptable for discharge home to complete an oral course of doxycycline Time Spent with Patient Time attestation: Total time managing care of this patient today ____ minutes. Discharge coordination time: Greater than 30 minutes Quality: Safe Use of Opioids Does Pt have an Active Cancer Diagnosis on the Problem List?: No Quality: Stroke Does the patient have a stroke diagnosis?: No Physical Exam Vital Signs: Vital Signs: Last Vital Signs Temp 97.8 F 05/31/23 11:10 Pulse 81 05/31/23 11:10 Resp 16 05/31/23 11:10 BP 153/67 H 05/31/23 11:10 Pulse Ox 93 05/31/23 11:10 O2 Del Method Room Air 05/31/23 11:10 BMI result Body Mass Index 27.1 Const: Other: Awake alert no acute distress Resp: Other: Diminished throughout with coarse rhonchi mid jorgensen Cardio: Other: No S4; positive S1-S2; no S3 murmurs rubs or gallops GI: Other: Soft nontender nondistended normoactive bowel sounds Neuro: Other: Cranial nerves 2-12 grossly intact as tested. Motor is 5 5 extremities. Sensation is Extrem: Other: No edema bilaterally DS: Data Data Completed and Pending Labs on day of discharge: Laboratory Results - last 24 hr 05/31/23 05/31/23 06:05 06:05 WBC 5.8 RBC 4.83 Hgb 14.7 Hct 46.0 MCV 95.2 MCH 30.4 MCHC 32.0 RDW 12.1 Plt Count 240 MPV 9.7 Immature Gran % (Auto) 0.3 Neut % (Auto) 65.5 Lymph % (Auto) 22.9 [place] % (Auto) 7.5 Eos % (Auto) 3.1 Baso % (Auto) 0.7 Lymph # (Auto) 1.3 [place] # (Auto) 0.4 Eos # (Auto) 0.2 Baso # (Auto) 0.0 Abs Immat Gran (auto) 0.02 Absolute Neuts (auto) 3.8 Absolute Nucleated RBC 0.000 Nucleated RBC % (auto) 0.0 Sodium 141 Potassium 4.5 Chloride 106 Carbon Dioxide 29 Anion Gap 11 L BUN 11 Creatinine 0.78 Estim Creat Clear Calc 60.3 Estimated GFR > 60 Fasting Glucose 110 H Calcium 9.6 Total Bilirubin 0.6 AST 13 ALT 8 Alkaline Phosphatase 68 Total Protein 6.2 L Albumin 3.5 Preliminary micro results at discharge 05/29/23 15:46 Blood Culture - Preliminary Blood - Venous No growth after 24 hours. 05/29/23 15:46 Blood Culture - Preliminary Blood - Venous No growth after 24 hours. Discharge Plan Discharge Anticipated Discharge Date/Time: 05/31/23 11:39 Patient Disposition: Home, Self-Care Discharge Diagnosis: Hemooptysis/Bronciectasis Referrals: Kylie Lira MD [Primary Care Provider] - 1 Week Discharge Medications: New doxycycline hyclate 100 mg tablet 100 mg PO BID Qty: 14 0RF Continued lovastatin 40 mg tablet 80 mg PO BEDTIME cholecalciferol (vitamin D3) 50 mcg (2,000 unit) capsule 50 mcg PO BEDTIME calcium carbonate [Calcium 500] 500 mg calcium (1,250 mg) tablet,chewable 500 mg PO BEDTIME multivitamin Tablet 1 tab PO BEDTIME Discharge Orders: Discharge Order (Routine); Ordered 05/31/23 Ordered By: Lance Beltran Diet: Advance to usual diet Activity on Discharge: As tolerated Stand Alone Forms: Patient Portal Discharge page Care Plan Goals: Take doxycycline 1 cap twice daily x1 week Health Concerns: Dr. Dash's office will call you with appointment for office visit follow up. Plan of Treatment: Follow-up with next available appointment Assessment: See discharge summary
== END 2023-05-31 15:21 | disposition home or self-care (01) | DRG 194 ==
LOC: HO.ED 16:12 → HO.EDOVER 16:46 → HO.IMC 17:02
PROVIDERS: Physician Assistant; Admitting Provider Hospitalist; Emergency Provider Emergency Medicine Emergency Medical Services; PCP Internal Medicine; Visit Provider Hospitalist
DX: J18.9 Pneumonia, unspecified organism (principal); R04.2 Hemoptysis; E78.5 Hyperlipidemia, unspecified; Z20.822 Contact with and (suspected) exposure to COVID-19; Z87.891 Personal history of nicotine dependence; Z79.899 Other long term (current) drug therapy
CPT/HCPCS: 36415; 71046; 71275; 80053; 83605; 83690; 85025; 85027; 85379; 85610; 85730; 87040; 87070; 87205; 87635; 99285; J0456; J0696; Q9967

== ENCOUNTER → 2023-05-29 12:44 | Outpatient (BNV) | payer MEDICARE, SELFPAY | PROVIDERS: Emergency Provider Emergency Medicine Emergency Medical Services; PCP Internal Medicine; Visit Provider Hospitalist | DX: R04.2 Hemoptysis (principal); J18.9 Pneumonia, unspecified organism | CPT/HCPCS: 99223; 99232; 99233; 99239 ==

== ENCOUNTER 2023-06-17 09:45 | Outpatient (AMB) | payer MEDICARE, SELFPAY ==
[2023-06-17 09:57] VITALS: BP 132/70; PULSE 89; O2SAT 94; BMI 26.0
--- NOTE | 2023-06-17 09:57 | A.OFFVIS_ITS ---
Intake Vital Signs 06/17/23 09:57 Height 5 ft 2 in Weight 142 lb 3.17 oz BMI 26.0 BP 132/70 Blood Pressure Location Rt brachial Position Sitting Pulse 89 Pulse Source Pulse Oximeter Pulse Oximetry (%) 94 Oxygen Delivery Method Room Air Intake Visit Reasons: Hemoptysis Medical Office Receptionist Assistant Required: No Allergies codeine Allergy (Severe, Verified 06/17/23 11:28) Vomiting HPI HPI Comments History of Present Illness Details the patient the patient is here for pulmonary evaluation. The patient is a 72 year woman with a known history of tobacco use in the past who apparently has been complaining of productive cough for several years. More recently in May she noticed that her cough was consistent of blood. The patient was brought to the [facility] ER where she was evaluated. She did have a CT scan of the chest that was personally by me. Appeared that she does have bronchiectatic changes in addition to that mosaic pattern suggesting air trapping. Patient was briefly admitted to the hospital. She had not been on any blood thinners. She was placed on antibiotics. Her cough improved in her hemoptysis resolved. The patient is here for follow-up. She complains of still productive cough with yellowish phlegm. Denies any evidence of any old or new blood. Denies any weight loss or night sweats. Does have some shortness of breath with activity. At this point will have the patient undergo blood work to assess her bronchiectatic changes. She does have a hiatal hernia we talked about the importance of the reflux diet. Patient also will provide us with a sputum sample both for AFB and Gram stain and culture. Patient also start respiratory therapy. If the patient developed worsening respiratory symptoms or recurrent hemoptysis she will call in order for us to set up for bronchoscopy. otherwise she will follow-up after her PFTs and blood work. [facility] Medical History (Updated 06/17/23 @ 22:04 by Jose Dash MD) Dyslipidemia Hiatal hernia Impaired fasting glucose Menopause Osteopenia of left femoral neck Pulmonary nodule Tubular adenoma of colon Surgical History History of section History of surgery Hx of colonoscopy Family History Father Anemia Mother COPD (chronic obstructive pulmonary disease) Son No problems noted. Daughter No problems noted. 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 Cognitive needs: No Hearing needs: No Vision needs: Yes Review of Systems Const Denies body aches, Denies fatigue, Denies fever(s), Denies headache(s) and Denies weakness ENT Reports Normal hearing present, Denies dizziness, Denies headache(s) and Denies nasal discharge Card Denies chest pain, Denies lightheadedness, Denies palpitations and Denies dyspnea Resp Reports chest congestion, Reports cough and Denies dyspnea GI Denies abdominal pain, Denies change in bowel habits and Reports heartburn Denies urinary frequency, Denies dysuria and Denies urinary urgency Musc Reports no additional complaints Skin/Breast Denies lesions and Denies rash Neuro Reports Normal hearing present, Denies dizziness, Denies headache(s), Denies S ensory deficit (Neuro) and Denies weakness Psych Reports no additional complaints Endo Denies fatigue, Denies polydipsia, Denies polyuria and Denies palpitations Mitch/Lymph Denies easy bleeding, Denies easy bruising and Denies lymphadenopathy Aller/Immun Denies seasonal rhinorrhea Physical Exam Vital Signs: Last Vital Signs Pulse 89 06/17/23 09:57 BP 132/70 06/17/23 09:57 Pulse Ox 94 06/17/23 09:57 Oxygen Delivery Method Room Air 06/17/23 09:57 BMI result Body Mass Index 26.0 Last Vital Signs Temp 97.8 F 05/31/23 11:10 Pulse 81 05/31/23 11:10 Resp 16 05/31/23 11:10 BP 153/67 H 05/31/23 11:10 Pulse Ox 93 05/31/23 11:10 O2 Del Method Room Air 05/31/23 11:10 BMI result Body Mass Index 27.1 Const General: comfortable HEENT Head: Yes normocephalic Neck Neck: Yes supple Chest Chest palpation & inspection: normal inspection of the chest Resp Effort & Inspection: normal respiratory effort Auscultation: rhonchi and diminished lung sounds Cardio Rate: regular rate Rhythm: regular rhythm Heart sounds: S1 normal heart sound present and S2 normal heart sound present GI Palpation (GI): Soft to palpation Skin General skin exam: no rashes or lesions noted Neuro Cranial nerves: Yes Normal hearing present Sensory Exam: No Sensory deficit (Neuro) Extrem General: Yes no clubbing, cyanosis or edema Results Reviewed Results Reviewed: [address] [address] [address] Scan Report Signed Patient: Kat Trinh MR#: [id number] : 1950 Acct:[id number] Age/Sex: 72 / F ADM Date: 05/29/23 Loc: .ED Attending Dr: Ordering Physician: Lexa Michel MD Date of Service: 05/29/23 Procedure(s): CT angio chest PE protocol Accession Number(s): [id number] cc: Lexa Michel MD~ EXAMINATION: CT ANGIOGRAM OF THE CHEST WITH AND WITHOUT CONTRAST (CT PULMONARY ANGIOGRAM FOR PE) CLINICAL INFORMATION: Reason for Exam Hematemesis, rule out PE, malignancy COMPARISON: Previous chest x-ray from earlier the same day TECHNIQUE: Prior to contrast administration, noncontrast localization images were obtained. ? Subsequently, multidetector volumetric imaging was performed from the thoracic inlet to below the diaphragms following the administration of 65 mL Omnipaque 350 intravenous contrast. No contrast reaction reported Sagittal, coronal, and MIP oblique sagittal reformatted images were obtained on the CT workstation, uploaded to PACS, and reviewed. This CT examination was performed using dose optimization techniques as appropriate, variously including the following: *Automated exposure control *Adjustment of mA and/or kV according to patient size (this includes techniques or standardized protocols for targeted exams where dose is matched to indication/reason for exam; i.e. extremities or head) *Use of iterative reconstruction technique Total exam dose-length product 221 mGy-cm FINDINGS: QUALITY OF STUDY/CONTRAST BOLUS: Satisfactory. PULMONARY ARTERIES: No pulmonary emboli.? THORACIC AORTA: No aneurysm. LUNG: Scattered areas of bronchial wall thickening and bronchial soft tissue opacification or mucus plugging. Mild right lower lobe bronchiectasis. 5 mm right lower lobe nodule axial image 339 series 7. Larger areas of atelectasis or small infiltrate in the medial segment of the right middle lobe and inferior segment of the lingula and bibasilar lower lobes. PLEURA: No pleural effusion or pneumothorax. MEDIASTINUM: Normal heart size.? No pericardial effusion. Shotty mediastinal and bilateral hilar lymph nodes. No enlarged hilar or mediastinal lymphadenopathy.? No evidence of septal bowing or right heart strain. Small esophageal hernia. CORONARY ARTERY CALCIFICATION: Moderate CHEST WALL/AXILLA: No axillary or internal mammary lymphadenopathy. OSSEOUS STRUCTURES: No acute or suspicious osseous abnormality.? UPPER ABDOMEN: Unremarkable.? No reflux of contrast into the hepatic veins to suggest elevated right heart pressures. CT/CT angio chest PE protocol IMPRESSION: No evidence of pulmonary embolism. Extensive airways disease with bronchial wall thickening and soft tissue opacification or mucus plugging. Mild right lower lobe bronchiectasis. 5 mm right lower lobe nodule. Atelectasis or small infiltrates at the lung bases. According to the UPDATED 2017 Fleischner Society recommendations, the advised follow-up imaging for less than 6 mm solid nodule,: Low risk, no chest CT follow-up and high risk, optional chest CT follow-up in one year. Nodule is stable, no additional chest CT follow-up recommended. ? VTE: negative Dictated By: Marcia Astudillo MD Signed By: <Electronically signed by Marcia Astudillo MD in OV> 05/29/23 1430 DD/ 1415 TD/TT:? Consumer Recruiter: OCTAVIO Assessment & Plan Assessment & Plan (1) Hemoptysis: Code(s): R04.2 - Hemoptysis (2) Bronchiectasis: Code(s): J47.9 - Bronchiectasis, uncomplicated (3) Pulmonary nodule: Code(s): R91.1 - Solitary pulmonary nodule (4) Hiatal hernia: Code(s): K44.9 - Diaphragmatic hernia without obstruction or gangrene Plan If recurrent hemoptysis or worsening symptoms she will call to arrange for bronchoscopy Sputum cx Bloodwork PFTs Will need serial CT chest start Azithromycin MWFfro the bronchiectasis reflux diet JONATHAN as needed Sleep with HOB elevated F/U 6-8 weeks Orders: Orders Complete Blood Count Auto Diff Today J47.9 - Bronchiectasis, uncomplicated, R04.2 - Hemoptysis Erythrocyte Sedimentation Rate Today J47.9 - Bronchiectasis, uncomplicated, R04.2 - Hemoptysis JAMEY Reflex Titer and Pattern Today J47.9 - Bronchiectasis, uncomplicated, R04.2 - Hemoptysis Immunoglobulin E Today J47.9 - Bronchiectasis, uncomplicated, R04.2 - Hemoptysis Immunoglobulin G Subclasses Today J47.9 - Bronchiectasis, uncomplicated, R04.2 - Hemoptysis Immunoglobulins,IgG IgA IgM Today J47.9 - Bronchiectasis, uncomplicated, R04.2 - Hemoptysis Acid-fast Culture + Smear Today J47.9 - Bronchiectasis, uncomplicated, R04.2 - Hemoptysis Sputum Cult + Gram stain Today J47.9 - Bronchiectasis, uncomplicated, R04.2 - Hemoptysis PFT pulmonary function test Today J47.9 - Bronchiectasis, uncomplicated, R04.2 - Hemoptysis Medications: New azithromycin Take 1 tablet on Wednesday/Wednesday/Wednesday 250 mg PO 3XW 28 days 12 tabs 6RF K21.9 - Gastro-esophageal reflux disease without esophagitis albuterol sulfate 90 mcg/actuation 2 inhalations inhalation Q6H 30 days PRN 18 grams 12RF shortness of breath or wheezing J44.9 - Chronic obstructive pulmonary disease, unspecified Discontinued lovastatin 80 mg (2 x 40 mg) PO QPM 180 tabs 1RF Coding Level of Care Code New Pt Level 5 (35293) Diagnoses Hemoptysis R04.2 Bronchiectasis J47.9 Pulmonary nodule R91.1 Hiatal hernia K44.9 Time Spent (min) 60
== END 2023-06-17 10:42 | disposition home or self-care (01) ==
PROVIDERS: PCP Internal Medicine; Visit Provider Hospitalist
DX: R04.2 Hemoptysis (principal); J47.9 Bronchiectasis, uncomplicated; R91.1 Solitary pulmonary nodule; K44.9 Diaphragmatic hernia without obstruction or gangrene
CPT/HCPCS: 99205

== ENCOUNTER → 2023-06-17 09:45 | Outpatient (BNVA) | payer MEDICARE, SELFPAY | PROVIDERS: PCP Internal Medicine; Visit Provider Hospitalist ==

== ENCOUNTER 2023-06-17 11:07 | Outpatient (REF) | payer MEDICARE, SELFPAY ==
[2023-06-17 12:58] LABS: MANUAL DIFF FLAG NO
[2023-06-17 13:09] LABS: Basophils Percent Auto 0.4 % (0-2); Eosinophils Absolute Auto 0.1 X10*3/uL (0.0-0.4); Eosinophils Percent Auto 1.3 % (0-4); Hematocrit 47.7 % (37.0-47.0); Hemoglobin 15.3 g/dl (12.0-16.0); Imm Gran Abs Auto 0.02 X10*3/uL (0.00-0.03); Imm Gran Pct Auto 0.3 % (0.0-0.4); Lymphocytes Absolute Auto 1.4 X10*3/uL (1.2-4.9); Lymphocytes Percent Auto 18.4 % (20-40); Mean Corpuscular HGB Conc 32.1 g/dl (31.0-35.0); Mean Corpuscular Hemoglobin 30.9 pg (27.0-33.0); Mean Corpuscular Volume 96.4 fL (80.0-98.0); Mean Platelet Volume 9.9 fL (9.4-12.3); Monocytes Absolute Auto 0.5 X10*3/uL (0.1-1.2); Monocytes Percent Auto 6.9 % (2-11); Neutrophils Absolute Auto 5.5 x10*3/uL (2.0-8.3); Neutrophils Percent Auto 72.7 % (45-73); Platelet Count 306 X10*3/uL (160-400); Red Blood Count 4.95 X10*6/uL (4.20-5.50); Red Cell Distribution Width 12.2 % (11.0-16.0); White Blood Count 7.6 X10*3/uL (4.8-10.8)
[2023-06-17 13:51] LABS: Erythrocyte Sedimentation Rate 14 MM/HR (0-20)
[2023-06-19 08:44] LABS: Immunoglobulin E 328 kU/L (<OR=114)
[2023-06-22 14:08] LABS: Immunoglobulin G Subclass 1 474 mg/dL (382-929); Immunoglobulin G Subclass 2 292 mg/dL (241-700); Immunoglobulin G Subclass 3 97 mg/dL (22-178); Immunoglobulin G Total 865 mg/dL (600-1540)
[2023-06-22 14:43] LABS: Anti Nuclear Antibody Screen NEGATIVE (NEGATIVE)
[2023-06-22 15:43] LABS: IgA 268 mg/dL (70-320); IgG 978 mg/dL (600-1540); IgM 82 mg/dL (50-300)
== END 2023-06-17 11:08 | disposition home or self-care (01) ==
LOC: HO.HMGCLDS 11:07
PROVIDERS: Visit Provider Hospitalist
DX: J47.9 Bronchiectasis, uncomplicated (principal); R04.2 Hemoptysis
CPT/HCPCS: 36415; 82784; 82785; 85025; 85652; 86038

== ENCOUNTER 2023-06-17 11:19 | Outpatient (AMB) | payer MEDICARE, SELFPAY ==
--- NOTE | 2023-06-17 11:24 | A.OFFPC_ITS ---
Vital Signs 06/17/23 11:27 Height 5 ft 2 in Weight 141 lb BMI 25.8 BP 138/82 Blood Pressure Location Lt brachial Position Sitting Pulse 94 Pulse Source Pulse Oximeter Pulse Oximetry (%) 96 Oxygen Delivery Method Room Air Intake Visit Reasons: [facility] 05/29-05/31 Coughing Blood Intake Note: Pt is here today for a HDF 05/29 coughing up blood Allergies codeine Allergy (Severe, Verified 08/03/23 02:29) Vomiting Medication List - Last Reconciled 06/17/23 by Kylie Lira MD albuterol sulfate 90 mcg/actuation 2 inhalations inhalation Q6H PRN 30 days azithromycin 250 mg PO 3XW 28 days calcium carbonate (Calcium 500) 500 mg PO BEDTIME cholecalciferol (vitamin D3) 50 mcg PO BEDTIME lovastatin 80 mg PO BEDTIME multivitamin 1 tab PO BEDTIME Tobacco use date assessed: 06/17/23 Fall risk assessment: No Falls in past year Last assessed Fall Risk: 06/17/23 Dental Screening Dental Screen Date: 06/17/23 Did you have a dental visit in the last 12 months?: Yes Did you have a dental problem in the last 6 months where you did not have access to dental care?: No Was dental information given to patient?: Patient has dentist HPI [facility] 05/29-05/31 Coughing Blood HPI Details 72-year-old lady, former smoker, here to day for follow-up after hospital discharge from [facility], where she was admitted for evaluation of hemoptysis . She reported coughing up up a golf ball-sized blood clot ?morning of admission. She denies having any fever or chills, denied chest pain, or shortness of breath, but has been having shortness of breath on exertion over the past several weeks and has lost 5 lb unintentionally.? The patient is a fo rmer smoker , quit in 2006, and used to smoke 1 pack of cigarettes per day for approximately [address] angio of the chest f presence of extensive bronchiectasis , with question of pneumonia in right middle lobe. She was placed on ceftriaxone and azithromycin , with improvement in her hemoptysis. She was seen by Pulmonary and is to follow-up with him after discharge, to undergo outpatient bronchoscopy. She was then discharged home on doxycycline. Present patient states that she is feeling better, has not had any further episodes of hemoptysis. Has an appointment for follow-up with Pulmonary later this afternoon. [facility] Medical History Hiatal hernia Pulmonary nodule Osteopenia of left femoral neck Tubular adenoma of colon Impaired fasting glucose Menopause Dyslipidemia Surgical History Hx of colonoscopy History of surgery History of section Family History Father Anemia Mother COPD (chronic obstructive pulmonary disease) Son No problems noted. Daughter No problems noted. 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 Depression Screening Interpretation: Negative Source: Developed by Drs. Brandon Ramirez, Julia Yost, Tyron Guillaume and colleagues, with an educational saida from [facility]. Thrive Questionnaire Date Thrive assessed: 05/30/23 DINESH-7 AMB Questionnaire DINESH-7 Date DINESH - 7 assessed: 10/01/22 Source: Developed by Drs. Brandon Ramirez, Julia Yost, Tyron Guillaume and colleagues, with an educational saida from [facility]. Review of Systems Const Denies body aches, Denies fatigue, Denies fever(s), Denies headache(s) and Denies weakness ENT Reports Normal hearing present, Denies dizziness, Denies headache(s) and Denies nasal discharge Card Denies chest pain, Denies lightheadedness, Denies palpitations and Denies dyspnea Resp Reports chest congestion, Reports cough and Denies dyspnea GI Denies abdominal pain and Denies change in bowel habits Denies urinary frequency, Denies dysuria and Denies urinary urgency Musc Denies arthralgias, Denies joint swelling, Denies muscle weakness and Reports stiffness Skin/Breast Denies lesions and Denies rash Neuro Reports Normal hearing present, Denies dizziness, Denies headache(s), Denies Sensory deficit (Neuro) and Denies weakness Psych Reports no additional complaints Endo Denies fatigue, Denies polydipsia, Denies polyuria and Denies palpitations Mitch/Lymph Denies easy bleeding, Denies easy bruising and Denies lymphadenopathy Aller/Immun Denies seasonal rhinorrhea Physical exam (Primary Care) Vital Signs: Last Vital Signs Pulse 94 06/17/23 11:27 BP 138/82 06/17/23 11:27 Pulse Ox 96 06/17/23 11:27 Oxygen Delivery Method Room Air 06/17/23 11:27 BMI result Body Mass Index 25.8 Tobacco/Smoking Status: Tobacco use Status Tobacco use date assessed 06/17/23 06/17/23 11:35 Patient Tobacco Use Status Former Tobacco user 06/17/23 11:24 e-Cigarette/Vaping Use Never Used 06/17/23 11:24 Depression Screening Interpretation: Negative Thrive Assessment: Date of Thrive Assessment Date Thrive assessed 05/30/23 06/17/23 11:24 Const General: no acute distress and alert Orientation/consciousness: patient oriented x3 HENMT Head: Yes normocephalic Ears: external ears normal General nose exam: Normal external nose present and No nasal discharge present Face and sinus: Yes face symmetric Mouth: Normal oral and palatal mucosa present and moist mucous membranes Eyes Conjunctivae: conjunctivae normal Sclerae: sclerae normal Pupils: Equal, round and reactive pupils present EOM: EOMs intact bilaterally Neck Neck: Yes full ROM and Yes no lymphadenopathy Thyroid: Thyroid normal Resp Effort & Inspection: normal respiratory effort and able to speak in complete sentences Auscultation: diminished lung sounds Cardio Rate: regular rate Rhythm: regular rhythm Heart sounds: S1 normal heart sound present and S2 normal heart sound present GI Inspection: Yes normal to inspection Palpation (GI): Soft to palpation Auscultation: normal bowel sounds Skin General skin exam: no rashes or lesions noted Neuro General: patient oriented x3, gait normal, moves all extremities, no focal motor deficits and CN's II-XI intact bilaterally Cranial nerves: Yes Equal, round and reactive pupils present and Yes Normal hearing present Cognition (Neuro): normal cognition Gait exam (Neuro): Normal gait present Motor exam (neuro): 5/5 motor strength present throughout Sensory Exam: No Sensory deficit (Neuro) Extrem General: Yes normal to inspection, Yes full ROM, Yes no pedal edema and Yes normal gait Immunizations pneumoc 20-shira conj-dip cr(PF) 0.5 mL IM syringe Performing Provider: Kylie Lira MD [place] [facility] [place] [facility] Administered by: Suzanne Hernandez CMA on 06/17/23 12:10 Dose Route Admin Location Dispensed Lot Number Expiration Date NDC Outpatient Interviewing Clerk 0.5 mL IM Right Deltoid 0.5 mL [id number] 08/17/24 5116-4775-27 [employer] VIS Given Date VIS Provided VIS Publication Date 06/17/23 Single Vaccine 21 Eligibility Eligibility Date Funding Source Not [facility] Eligible 06/17/23 Private Assessment and Plan Assessment & Plan (1) Bronchiectasis: Code(s): J47.9 - Bronchiectasis, uncomplicated Qualifiers: Bronchiectasis type: with acute exacerbation Qualified Code(s): J47.1 - Bronchiectasis with (acute) exacerbation Plan: Prevnar 20 given today, advised to get her yearly flu shot, advised to get RSV vaccine and the new COVID booster that is coming out soon, has follow-up appointment with pulmonary for further evaluation and management Orders: Orders Pneumococcal 20 Immunization 06/17/23 Z23 - Encounter for immunization Coding Level of Care Code Est Pt Level 3 (60862) Diagnoses Bronchiectasis with acute exacerbation J47.1 Bronchiectasis type: with acute exacerbation
[2023-06-17 11:27] VITALS: BP 138/82; PULSE 94; O2SAT 96; BMI 25.8
== END 2023-06-17 15:25 | disposition home or self-care (01) ==
PROVIDERS: PCP Internal Medicine; Visit Provider Internal Medicine
DX: Z23 Encounter for immunization (principal)
CPT/HCPCS: 90471; 90677; 99213

== ENCOUNTER 2023-06-27 08:30 | Outpatient (REF) | payer MEDICARE, SELFPAY | END 2023-06-27 08:31 | disposition home or self-care (01) | LOC: HO.HMGCLNP 08:30 | PROVIDERS: PCP Internal Medicine; Visit Provider Hospitalist | DX: Z13.89 Encounter for screening for other disorder (principal) ==

== ENCOUNTER 2023-06-28 08:30 | Outpatient (REF) | payer MEDICARE, SELFPAY | END 2023-06-28 08:31 | disposition home or self-care (01) | LOC: HO.LNP 08:30 | PROVIDERS: Visit Provider Hospitalist | DX: J47.9 Bronchiectasis, uncomplicated (principal); R04.2 Hemoptysis | CPT/HCPCS: 87070; 87077; 87186; 87205 ==

== ENCOUNTER 2023-06-29 10:41 | Outpatient (REF) | payer MEDICARE, SELFPAY | END 2023-06-29 10:42 | disposition home or self-care (01) | LOC: HO.LAB 10:41 | PROVIDERS: PCP Internal Medicine; Visit Provider Hospitalist | DX: Z13.89 Encounter for screening for other disorder (principal) ==

== ENCOUNTER 2023-07-08 10:07 | Outpatient (REF) | payer MEDICARE, SELFPAY ==
--- NOTE | 2023-07-08 11:04 | PFT_ITS ---
FLOWS: 1. FEV1 45% of predicted at 0.94 L. 2. FVC 73% of predicted at 3.00 L. 3. FEV1 to FVC ratio of 0.47. 4. Positive bronchodilator response. LUNG VOLUMES: 1. Total lung capacity 91% of predicted at 4.35 L. 2. Residual volume 115% of predicted at 2.43 L. 3. Slow vital capacity 73% of predicted at 1.92 L. 4. Expiratory reserve volume 61% of predicted at 0.37 L. 5. Diffusion capacity is mildly decreased, diffusion capacity corrects to normal after adjustment for alveolar ventilation. IMPRESSION: Severe obstructive ventilatory defect with positive bronchodilator response. Decreased diffusion capacity suggesting emphysema. Karthik Armstrong MD AP/MODL / [id number]
== END 2023-07-08 10:08 | disposition home or self-care (01) ==
LOC: HO.RESP 10:07
PROVIDERS: PCP Internal Medicine; Visit Provider Hospitalist
DX: J47.9 Bronchiectasis, uncomplicated (principal); R04.2 Hemoptysis
CPT/HCPCS: 94010; 94727; 94729

== ENCOUNTER → 2023-07-08 11:04 | Outpatient (BNV) | payer MEDICARE, SELFPAY | PROVIDERS: PCP Internal Medicine; Visit Provider Internal Medicine Pulmonary Disease | DX: R06.09 Other forms of dyspnea (principal) | CPT/HCPCS: 94060; 94727; 94729 ==

== ENCOUNTER 2023-08-09 09:50 | Outpatient (AMB) | payer MEDICARE, SELFPAY ==
--- NOTE | 2023-08-09 09:57 | A.OFFVIS_ITS ---
Intake Vital Signs 08/09/23 09:58 Height 5 ft 2 in Weight 145 lb BMI 26.5 BP 134/70 Blood Pressure Location Rt brachial Position Sitting Pulse 84 Pulse Source Pulse Oximeter Pulse Oximetry (%) 96 Oxygen Delivery Method Room Air Intake Visit Reasons: Hemoptysis Travel Rn Or Required: No Allergies codeine Allergy (Severe, Verified 08/09/23 10:01) Vomiting HPI HPI Comments History of Present Illness Details The patient is a 72 year woman with a known history of tobacco use in the past who apparently has been complaining of productive cough for several years. More recently in May she noticed that her cough was consistent of blood. The patient was brought to the [facility] ER where she was evaluated. She did have a CT scan of the chest that was personally by me. Appeared that she does have bronchiectatic changes in addition to that mosaic pattern suggesting air trapping. Patient was briefly admitted to the hospital. She had not been on any blood thinners. She was placed on antibiotics. Her cough improved in her hemoptysis resolved. The patient is here for follow-up. She complains of still productive cough with yellowish phlegm. Denies any evidence of any old or new blood. Denies any weight loss or night sweats. Does have some shortness of breath with activity. At this point will have the patient undergo blood work to assess her bronchiectatic changes. She does have a hiatal hernia we talked about the importance of the reflux diet. Patient also will provide us with a sputum sample both for AFB and Gram stain and culture. Patient also start respiratory therapy. If the patient developed worsening respiratory symptoms or recurrent hemoptysis she will call in order for us to set up for bronchoscopy. otherwise she will follow-up after her PFTs and blood work. 08/09/2023 the patient is here for pulmo kev follow-up visit. Overall she is feeling better. We did send a sputum culture now is positive for Pseudomonas and the patient responded well to Levaquin. She is feeling better although she is starting to develop increasing chest congestion. Denies any hemoptysis. She is using her respiratory medications. She has yet to receive her Acapella valve will request 1 at this time. At this point there is no need for bronchoscopy although we will reassess her symptoms. If she develops worsening chest congestion or abnormal chest x-ray will go ahead and plan to perform bronchoscopy for airway clearance evaluation and subsequently therapy. If the patient continues to grow positive for Pseudomonas that she may be a good candidate for inhaled tobramycin. We did talk about it. At this point she will go back on azithromycin 3 times a week for her bronchiectasis. The patient has pulmonary nodules. They are small. She will need follow-up imaging studies. [facility] Medical History Hiatal hernia Pulmonary nodule Osteopenia of left femoral neck Tubular adenoma of colon Impaired fasting glucose Menopause Dyslipidemia Surgical History Hx of colonoscopy History of surgery History of section Family History Father Anemia Mother COPD (chronic obstructive pulmonary disease) Son No problems noted. Daughter No problems noted. 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 Cognitive needs: No Hearing needs: No Vision needs: Yes Review of Systems Const Denies body aches, Denies fatigue, Denies fever(s), Denies headache(s) and Denies weakness ENT Reports Normal hearing present, Denies dizziness, Denies headache(s) and Denies nasal discharge Card Denies chest pain, Denies lightheadedness, Denies palpitations and Denies dyspnea Resp Reports chest congestion, Reports cough and Denies dyspnea GI Denies abdominal pain, Denies change in bowel habits and Reports heartburn Denies urinary frequency, Denies dysuria and Denies urinary urgency Musc Reports no additional complaints Skin/Breast Denies lesions and Denies rash Neuro Reports Normal hearing present, Denies dizziness, Denies headache(s), Denies Sensory deficit (Neuro) and Denies weakness Psych Reports no additional complaints Endo Denies fatigue, Denies polydipsia, Denies polyuria and Denies palpitations Mitch/Lymph Denies easy bleeding, Denies easy bruising and Denies lymphadenopathy Aller/Immun Denies seasonal rhinorrhea Physical Exam Vital Signs: Last Vital Signs Pulse 84 08/09/23 09:58 BP 134/70 08/09/23 09:58 Pulse Ox 96 08/09/23 09:58 Oxygen Delivery Method Room Air 08/09/23 09:58 BMI result Body Mass Index 26.5 Last Vital Signs Temp 97.8 F 05/31/23 11:10 Pulse 81 05/31/23 11:10 Resp 16 05/31/23 11:10 BP 153/67 H 05/31/23 11:10 Pulse Ox 93 05/31/23 11:10 O2 Del Method Room Air 05/31/23 11:10 BMI result Body Mass Index 27.1 Const General: comfortable HEENT Head: Yes normocephalic Neck Neck: Yes supple Chest Chest palpation & inspection: normal inspection of the chest Resp Effort & Inspection: normal respiratory effort Auscultation: rhonchi and diminished lung sounds Cardio Rate: regular rate Rhythm: regular rhythm Heart sounds: S1 normal heart sound present and S2 normal heart sound present GI Palpation (GI): Soft to palpation Skin General skin exam: no rashes or lesions noted Neuro Cranial nerves: Yes Normal hearing present Sensory Exam: No Sensory deficit (Neuro) Extrem General: Yes no clubbing, cyanosis or edema Assessment & Plan Assessment & Plan (1) Bronchiectasis: Code(s): J47.9 - Bronchiectasis, uncomplicated Qualifiers: Bronchiectasis type: with acute exacerbation Qualified Code(s): J47.1 - Bronchiectasis with (acute) exacerbation (2) Pulmonary nodule: Code(s): R91.1 - Solitary pulmonary nodule (3) Hiatal hernia: Code(s): K44.9 - Diaphragmatic hernia without obstruction or gangrene Plan If recurrent hemoptysis or worsening symptoms she will call to arrange for bronchoscopy start Advair HFA BID repeat Sputum cx needs acapella valve CXR in 2 months Will need serial CT chest restart Azithromycin MWF from the bronchiectasis reflux diet JONATHAN as needed Sleep with HOB elevated F/U 6-8 weeks Orders: Orders Sputum Cult + Gram stain Today J47.9 - Bronchiectasis, uncomplicated XR chest 2V Today J47.9 - Bronchiectasis, uncomplicated Medications: New azithromycin Take 1 tablet on Wednesday/Wednesday/Wednesday 250 mg PO 3XW 28 days 12 tabs 6RF K21.9 - Gastro-esophageal reflux disease without esophagitis fluticasone propion-salmeterol 115-21 mcg/actuation (Advair HFA) 2 puffs inhalation Q12H 30 days 12 grams 11RF Coding Level of Care Code Est Pt Level 4 (26408) Diagnoses Bronchiectasis with acute exacerbation J47.1 Bronchiectasis type: with acute exacerbation Pulmonary nodule R91.1 Hiatal hernia K44.9 Time Spent (min) 17
[2023-08-09 09:58] VITALS: BP 134/70; PULSE 84; O2SAT 96; BMI 26.5
== END 2023-08-09 10:20 | disposition home or self-care (01) ==
PROVIDERS: PCP Internal Medicine; Visit Provider Hospitalist
DX: J47.1 Bronchiectasis with (acute) exacerbation (principal); R91.1 Solitary pulmonary nodule; K44.9 Diaphragmatic hernia without obstruction or gangrene
CPT/HCPCS: 99214

== ENCOUNTER → 2023-08-09 09:50 | Outpatient (BNVA) | payer MEDICARE, SELFPAY | PROVIDERS: PCP Internal Medicine; Visit Provider Hospitalist | DX: J47.1 Bronchiectasis with (acute) exacerbation (principal); R91.1 Solitary pulmonary nodule; K44.9 Diaphragmatic hernia without obstruction or gangrene | CPT/HCPCS: 99212 ==

== ENCOUNTER 2023-09-30 06:10 | Outpatient (REF) | payer MEDICARE, SELFPAY ==
[2023-09-30 12:05] LABS: Estimated Average Glucose 131 mg/dL; Hemoglobin A1c % 6.2 % (<6.0)
[2023-09-30 12:30] LABS: Alanine Aminotransferase 14 U/L (0-31); Anion Gap 11 (12-20); Aspartate Amino Transferase 19 U/L (5-31); Blood Urea Nitrogen 19 mg/dL (9-16); Calcium 9.8 mg/dL (8.4-10.2); Carbon Dioxide 30 mmol/L (22-29); Chloride 104 mmol/L (96-108); Cholesterol 199 mg/dL (<200); Estimated Glomerular Filt Rate > 60; Glucose Fasting 133 mg/dL (60-99); HDL Cholesterol 63 mg/dL (>40); LDL Cholesterol Calculated 116 mg/dL (<100); Potassium 4.2 mmol/L (3.3-5.1); Sodium 141 mmol/L (135-145); Triglycerides 101 mg/dL (<150)
[2023-09-30 12:47] LABS: Vitamin D 25-OH Total 77.5 ng/mL (>30)
== END 2023-09-30 06:11 | disposition home or self-care (01) ==
LOC: HO.HMGCLDS 06:10
PROVIDERS: PCP Internal Medicine; Visit Provider Internal Medicine
DX: M85.852 Other specified disorders of bone density and structure, left thigh (principal); R73.01 Impaired fasting glucose; E78.5 Hyperlipidemia, unspecified; Z78.0 Asymptomatic menopausal state
CPT/HCPCS: 36415; 80048; 80061; 82306; 83036; 84450; 84460

== ENCOUNTER 2023-10-07 15:22 | Outpatient (AMB) | payer MEDICARE, SELFPAY ==
--- NOTE | 2023-10-07 15:35 | MHC.PC.OV ---
Vital Signs 10/07/23 15:36 Height 5 ft 2 in BP 130/86 Blood Pressure Location Rt brachial Position Sitting Pulse 82 Pulse Source Pulse Oximeter Pulse Oximetry (%) 96 Oxygen Delivery Method Room Air Intake Visit Reasons: Annual Physical Intake Note: Pt is here for her Annual PE Allergies codeine Allergy (Severe, Verified 10/07/23 16:00) Vomiting Medication List - Last Reconciled 10/07/23 by Kylie Lira MD albuterol sulfate 90 mcg/actuation 2 inhalations inhalation Q6H PRN 30 days calcium carbonate (Calcium 500) 500 mg PO BEDTIME cholecalciferol (vitamin D3) 50 mcg PO BEDTIME fluticasone propion-salmeterol 115-21 mcg/actuation (Advair HFA) 2 puffs inhalation Q12H 30 days lovastatin 80 mg (2 x 40 mg) PO BEDTIME multivitamin 1 tab PO BEDTIME Tobacco use date assessed: 10/07/23 Fall risk assessment: No Falls in past year Last assessed Fall Risk: 10/07/23 Dental Screening Dental Screen Date: 10/07/23 Did you have a dental visit in the last 12 months?: Yes Did you have a dental problem in the last 6 months where you did not have access to dental care?: No Was dental information given to patient?: Patient has dentist HPI Annual Physical HPI Details 73-year-old lady here today for physical exam and a preoperative exam for cataract surgery, OD on 11/08/2023, requested by Dr. Mcdaniel. She has bronchiectasis, and a solitary pulmonary nodule, currently followed by Pulmonary, get serial CT scan. Has osteopenia in left femoral neck, no history of fractures. She is up-to-date with her screening colonoscopy done by Dr. Beck in 2020, repeat due again in 2025. Up-to-date with her screening mammogram and bone density scan done earlier this year. Up-to-date with all her vaccinations except for her RSV vaccine. [facility] Medical History Hiatal hernia Pulmonary nodule Osteopenia of left femoral neck Tubular adenoma of colon Impaired fasting glucose Menopause Dyslipidemia Surgical History Hx of colonoscopy History of surgery History of section Family History Father Anemia Mother COPD (chronic obstructive pulmonary disease) Son No problems noted. Daughter No problems noted. 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 Brandon Ramirez, Julia Yost, Tyron Guillaume and colleagues, with an educational saida from [employer]. Review of Systems Const Denies body aches, Denies fatigue, Denies fever(s), Denies headache(s) and Denies weakness Eyes Reports blurry vision ENT Reports Normal hearing present, Denies dizziness, Denies headache(s) and Denies nasal discharge Card Denies chest pain, Denies lightheadedness, Denies palpitations and Denies dyspnea Resp Reports chest congestion, Reports cough and Denies dyspnea GI Denies abdominal pain, Denies change in bowel habits and Reports heartburn Denies urinary frequency, Denies dysuria and Denies urinary urgency Musc Reports no additional complaints Skin/Breast Denies lesions and Denies rash Neuro Reports Normal hearing present, Denies dizziness, Denies headache(s), Denies Sensory deficit (Neuro) and Denies weakness Psych Reports no additional complaints Endo Denies fatigue, Denies polydipsia, Denies polyuria and Denies palpitations Mitch/Lymph Denies easy bleeding, Denies easy bruising and Denies lymphadenopathy Aller/Immun Denies seasonal rhinorrhea Physical exam (Primary Care) Vital Signs: Last Vital Signs Pulse 82 10/07/23 15:36 BP 130/86 10/07/23 15:36 Pulse Ox 96 10/07/23 15:36 Oxygen Delivery Method Room Air 10/07/23 15:36 Tobacco/Smoking Status: Tobacco use Status Tobacco use date assessed 10/07/23 10/07/23 15:43 Patient Tobacco Use Status Former Tobacco user 10/07/23 15:36 e-Cigarette/Vaping Use Never Used 10/07/23 15:36 Thrive Assessment: Date of Thrive Assessment Date Thrive assessed 05/30/23 10/07/23 15:36 Const General: no acute distress and alert Orientation/consciousness: patient oriented x3 HENMT Head: Yes normocephalic Ears: external ears normal General nose exam: Normal external nose present and No nasal discharge present Face and sinus: Yes face symmetric Mouth: Normal oral and palatal mucosa present and moist mucous membranes Eyes Conjunctivae: conjunctivae normal Sclerae: sclerae normal Pupils: Equal, round and reactive pupils present EOM: EOMs intact bilaterally Neck Neck: Yes full ROM and Yes no lymphadenopathy Thyroid: Thyroid normal Chest Breast/axilla palpation: normal palpation of the breasts and normal palpation of the axillae Resp Effort & Inspection: normal respiratory effort and able to speak in complete sentences Auscultation: diminished lung sounds Cardio Rate: regular rate Rhythm: regular rhythm Heart sounds: S1 normal heart sound present and S2 normal heart sound present GI Inspection: Yes normal to inspection Palpation (GI): Soft to palpation Auscultation: normal bowel sounds General: Yes no CVA tenderness Back/Spine/Pelvis Back: no CVA tenderness Skin General skin exam: no rashes or lesions noted Neuro General: patient oriented x3, gait normal, moves all extremities, no focal motor deficits and CN's II-XI intact bilaterally Cranial nerves: Yes Equal, round and reactive pupils present and Yes Normal hearing present Cognition (Neuro): normal cognition Gait exam (Neuro): Normal gait present Motor exam (neuro): 5/5 motor strength present throughout Sensory Exam: No Sensory deficit (Neuro) Extrem General: Yes normal to inspection, Yes full ROM, Yes no pedal edema and Yes normal gait Psych Appearance: grossly normal and well kempt Mental Status: mental status grossly normal Speech and movement: Normal speech and movement present Affect: normal affect Attitude: cooperative Thought process: Normal thought process present Thought content: Normal thought content present Results Reviewed Results Reviewed: Name: Kat Trinh Age/Sex: 73/F : 1950 Unit#: [id number] Attend Dr: Kylie Lira MD Re09/30/23 Status: DEP REF Location: [id number] Disch: SPEC : [id number] BALDEMAR: 09/30/23 STATUS: COMP REQ : [id number] RECD: 09/30/[address]: Kylie Lira MD COMP: 09/30/23 ENTERED: 09/30/[address] [facility] [address]: ORDERED: Met Prof Fast, AST, ALT, Lipid Panel, Vitamin D 25-OH Test Result Flag Reference Site Sodium 141 135-145 mmol/L Potassium 4.2 3.3-5.1 mmol/L CL 104 96-108 mmol/L CO2 30 H 22-29 mmol/L Gap 11 L 12-20 BUN 19 H 9-16 mg/dL Creat 0.77 0.5-1.4 mg/dL EGFR > 60 NOTE: For -[place] individuals, multiply the result by 1.210. Chronic Kidney Disease: Estimated GFR < 60 mL/min/1.73m2 Severe Kidney Disease: Estimated GFR < 15 mL/min/1.73m2 FBS 133 H 60-99 mg/dL A fasting glucose of 126 mg/dl or greater on more than one occasion is considered diagnostic of diabetes. CA 9.8 8.4-10.2 mg/dL AST (GOT) 19 5-31 U/L ALT (GPT) 14 0-31 U/L Triglyceride 101 <150 mg/dL Desirable Triglyceride: less than 150 mg/dL Borderline High Triglyceride 150-199 mg/dL High Triglyceride: 200-499 mg/dL Very High Triglyceride: greater than or equal to 5OO mg/dL Cholesterol 199 <200 mg/dL Desirable Cholesterol: less than 200 mg/dL Borderline High Cholesterol: 200-239 mg/dL High Cholesterol: greater than 239 mg/dL LDL Calculated 116 H <100 mg/dL Desirable LDL: less than 100 mg/dL Near Optimal/Above Optimal LDL: 110-129 mg/dL Borderline High LDL: 130-159 mg/dL High LDL: 160-189 mg/dL Very High LDL: greater than or equal to 190 mg/dL HDL 63 >40 mg/dL Desirable HDL: greater than 40 mg/dL Note: This HDL assay may give artificially low results in patients with liver disease. Vit D 25-OH Tot 77.5 >30 ng/mL Health Based Reference Values* < 20 ng/mL Deficient 20-30 ng/mL Insufficient > 30 ng/mL Sufficient Assessment and Plan Assessment & Plan (1) Preoperative examination: Code(s): Z01.818 - Encounter for other preprocedural examination Plan: [age] old lady here for pre-op clearance for right cataract surgery , requested by Dr. Mcdaniel. She has bronchiectasis currently stable controlled, osteopenia, prediabetes. Denies any cardiac or pulmonary symptoms at present time except for cough in the productive of sputum. Pre-operative exam is unremarkable. Patient with low cardiac risk index for proposed surgery (2) Annual visit for general adult medical examination with abnormal findings: Code(s): Z00.01 - Encounter for general adult medical examination with abnormal findings Plan: Reviewed recent fasting lab results with patient. Recommended dental visit every 6 months and regular eye exams, at least every 2 years. Take adequate calcium in diet and vitamin-D 3 at 2000 IU per cap once a day, in addition to weight-bearing exercises to help maintain good muscle tone and weight control. Instructed to do self-breast exam, and continue yearly mammogram, up-to-date with her screening colonoscopy (3) Bronchiectasis: Code(s): J47.9 - Bronchiectasis, uncomplicated Qualifiers: Bronchiectasis type: with acute exacerbation Qualified Code(s): J47.1 - Bronchiectasis with (acute) exacerbation Plan: Followed by Pulmonary (4) Osteopenia of left femoral neck: Code(s): M85.852 - Other specified disorders of bone density and structure, left thigh Plan: Continue with vitamin-D 3 and calcium supplements , encouraged to do regular weight-bearing exercise (5) Arthritis of left knee: Code(s): M17.12 - Unilateral primary osteoarthritis, left knee (6) Impaired fasting glucose: Code(s): R73.01 - Impaired fasting glucose Plan: Your fasting blood sugars elevated above 100 mg/dL. Impaired glucose metabolism O2 at risk for developing diabetes mellitus type 2, as well as heart attack and stroke later on. Lifestyle changes at just weight loss, healthy eating habits, and regular exercise are important, and can prevent the progression to diabetes (7) Pulmonary nodule: Comment: ff'd by Dr. smith Code(s): R91.1 - Solitary pulmonary nodule Plan: Followed by Dr. smith, gets serial CT scans of the chest Orders: Orders Lipid Panel 03/18/24 J47.9 - Bronchiectasis, uncomplicated, M17.12 - Unilateral primary osteoarthritis, left knee, M85.852 - Other specified disorders of bone density and structure, left thigh, R73.01 - Impaired fasting glucose, R91.1 - Solitary pulmonary nodule, Z00.01 - Encounter for general adult medical examination with abnormal findings, Z78.0 - Asymptomatic menopausal state Vitamin D 25-OH Total 03/18/24 J47.9 - Bronchiectasis, uncomplicated, M17.12 - Unilateral primary osteoarthritis, left knee, M85.852 - Other specified disorders of bone density and structure, left thigh, R73.01 - Impaired fasting glucose, R91.1 - Solitary pulmonary nodule, Z00.01 - Encounter for general adult medical examination with abnormal findings, Z78.0 - Asymptomatic menopausal state Hemoglobin A1c 03/18/24 J47.9 - Bronchiectasis, uncomplicated, M17.12 - Unilateral primary osteoarthritis, left knee, M85.852 - Other specified disorders of bone density and structure, left thigh, R73.01 - Impaired fasting glucose, R91.1 - Solitary pulmonary nodule, Z00.01 - Encounter for general adult medical examination with abnormal findings, Z78.0 - Asymptomatic menopausal state Alanine Aminotransferase 03/18/24 J47.9 - Bronchiectasis, uncomplicated, M17.12 - Unilateral primary osteoarthritis, left knee, M85.852 - Other specified disorders of bone density and structure, left thigh, R73.01 - Impaired fasting glucose, R91.1 - Solitary pulmonary nodule, Z00.01 - Encounter for general adult medical examination with abnormal findings, Z78.0 - Asymptomatic menopausal state Aspartate Amino Transferase 03/18/24 J47.9 - Bronchiectasis, uncomplicated, M17.12 - Unilateral primary osteoarthritis, left knee, M85.852 - Other specified disorders of bone density and structure, left thigh, R73.01 - Impaired fasting glucose, R91.1 - Solitary pulmonary nodule, Z00.01 - Encounter for general adult medical examination with abnormal findings, Z78.0 - Asymptomatic menopausal state Basic Metabolic Panel Fasting 03/18/24 J47.9 - Bronchiectasis, uncomplicated, M17.12 - Unilateral primary osteoarthritis, left knee, M85.852 - Other specified disorders of bone density and structure, left thigh, R73.01 - Impaired fasting glucose, R91.1 - Solitary pulmonary nodule, Z00.01 - Encounter for general adult medical examination with abnormal findings, Z78.0 - Asymptomatic menopausal state Coding Level of Care Code Est Pt Prev Care >65y(61262) Diagnoses Preoperative examination Z01.818 Annual visit for general adult medical examination with abnormal findings Z00.01 Bronchiectasis with acute exacerbation J47.1 Bronchiectasis type: with acute exacerbation Osteopenia of left femoral neck M85.852 Arthritis of left knee M17.12 Impaired fasting glucose R73.01 Pulmonary nodule R91.1
[2023-10-07 15:36] VITALS: BP 130/86; PULSE 82; O2SAT 96
== END 2023-10-07 16:17 | disposition home or self-care (01) ==
PROVIDERS: Visit Provider Internal Medicine
DX: Z00.00 Encounter for general adult medical examination without abnormal findings (principal); J47.1 Bronchiectasis with (acute) exacerbation; M85.852 Other specified disorders of bone density and structure, left thigh; M17.12 Unilateral primary osteoarthritis, left knee; R73.01 Impaired fasting glucose; R91.1 Solitary pulmonary nodule
CPT/HCPCS: 99397

== ENCOUNTER 2023-10-19 06:48 | Outpatient (REF) | payer MEDICARE, SELFPAY | END 2023-10-19 06:49 | disposition home or self-care (01) | LOC: HO.HMGCLNP 06:48 | PROVIDERS: PCP Internal Medicine; Visit Provider Hospitalist | DX: J47.1 Bronchiectasis with (acute) exacerbation (principal); R91.1 Solitary pulmonary nodule; K44.9 Diaphragmatic hernia without obstruction or gangrene | CPT/HCPCS: 87070; 87077; 87186; 87205; 99212 ==

== ENCOUNTER 2023-10-19 09:59 | Outpatient (AMB) | payer MEDICARE, SELFPAY ==
--- NOTE | 2023-10-19 10:23 | A.OFFVIS_ITS ---
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 More recently in May she noticed that her cough was consistent of blood. The patient was brought to the [facility] ER where she was evaluated. She did have a CT scan of the chest that was personally by me. Appeared that she does have bronchiectatic changes in addition to that mosaic pattern suggesting air trapping. Patient was briefly admitted to the hospital. She had not been on any blood thinners. She was placed on antibiotics. Her cough improved in her hemoptysis resolved. The patient is here for follow-up. She complains of still productive cough with yellowish phlegm. Denies any evidence of any old or new blood. Denies any weight loss or night sweats. Does have some shortness of breath with activity. At this point will have the [place] ent undergo blood work to assess her bronchiectatic changes. She does have a hiatal hernia we talked about the importance of the reflux diet. Patient also will provide us with a sputum sample both for AFB and Gram stain and culture. Patient also start respiratory therapy. If the patient developed worsening respiratory symptoms or recurrent hemoptysis she will call in order for us to set up for bronchoscopy. otherwise she will follow-up after her PFTs and blood work. 08/09/2023 the patient is here for pulmo kev follow-up visit. Overall she is feeling better. We did send a sputum culture now is positive for Pseudomonas and the patient responded well to Levaquin. She is feeling better although she is starting to develop increasing chest congestion. Denies any hemoptysis. She is using her respiratory medications. She has yet to receive her Acapella valve will request 1 at this time. At this point there is no need for bronchoscopy although we will reassess her symptoms. If she develops worsening chest congestion or abnormal chest x-ray will go ahead and plan to perform bronchoscopy for airway clearance evaluation and subsequently therapy. If the patient continues to grow positive for Pseudomonas that she may be a good candidate for inhaled tobramycin. We did talk about it. At this point she will go back on azithromycin 3 times a week for her bronchiectasis. The patient has pulmonary nodules. They are small. She will need follow-up imaging studies. 10/19/2023 the patient is here for a pulmo nary follow-up visit. Overall she is doing better. She was able to get a sputum sample for us for culture today. Will wait for the results. She had Pseudomonas in the past. She had responded well to the Levaquin. And then subsequently after that she was placed on azithromycin 3 times a week for her bronchiectasis. Her mucus in cough is better. She also get her Acapella valve for although she has only used it twice. I did emphasize importance of the Acapella valve in order for her to practice good bronchopulmonary hygiene and also for good exercise for her respiratory capacity. She did stop the azithromycin at this time. She opts in taking minimal medications and therefore she will hold off on this time. The mucus gets worse again then we can always restart it. Will also await the results of her microbiology. In the meantime her hemoptysis is also better. Seems like she is not getting any significant amount of blood. She will monitor that closely as well. Her last CT scan was done in May 2023 demonstrating a 5 mm pulmonary nodule and also the bronchiectatic changes. She will need a CT scan a year from that one. And will follow-up in 4-6 months. If the patient has any issues prior to that she will call the office for an earlier assessment. [facility] Medical History Hiatal hernia Pulmonary nodule Osteopenia of left femoral neck Tubular adenoma of colon Impaired fasting glucose Menopause Dyslipidemia Surgical History Hx of colonoscopy History of surgery History of section Family History Father Anemia Mother COPD (chronic obstructive pulmonary disease) Son No problems noted. Daughter No problems noted. 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 Cognitive needs: No Hearing needs: No Vision needs: Yes Review of Systems Const Denies body aches, Denies fatigue, Denies fever(s), Denies headache(s) and Denies weakness ENT Reports Normal hearing present, Denies dizziness, Denies headache(s) and Denies nasal discharge Card Denies chest pain, Denies lightheadedness, Denies palpitations and Denies dyspne a Resp Reports chest congestion, Reports cough and Denies dyspnea GI Denies abdominal pain, Denies change in bowel habits and Reports heartburn Denies urinary frequency, Denies dysuria and Denies urinary urgency Musc Reports no additional complaints Skin/Breast Denies lesions and Denies rash Neuro Reports Normal hearing present, Denies dizziness, Denies headache(s), Denies Sensory deficit (Neuro) and Denies weakness Psych Reports no additional complaints Endo Denies fatigue, Denies polydipsia, Denies polyuria and Denies palpitations Mitch/Lymph Denies easy bleeding, Denies easy bruising and Denies lymphadenopathy Aller/Immun Denies seasonal rhinorrhea Physical Exam Vital Signs: Last Vital Signs Pulse 89 10/19/23 10:24 Pulse Ox 95 10/19/23 10:24 Oxygen Delivery Method Room Air 10/19/23 10:24 BMI result Body Mass Index 26.5 Last Vital Signs Temp 97.8 F 05/31/23 11:10 Pulse 81 05/31/23 11:10 Resp 16 05/31/23 11:10 BP 153/67 H 05/31/23 11:10 Pulse Ox 93 05/31/23 11:10 O2 Del Method Room Air 05/31/23 11:10 BMI result Body Mass Index 27.1 Const General: comfortable HEENT Head: Yes normocephalic Neck Neck: Yes supple Chest Chest palpation & inspection: normal inspection of the chest Resp Effort & Inspection: normal respiratory effort Auscultation: no rhonchi and diminished lung sounds Cardio Rate: regular rate Rhythm: regular rhythm Heart sounds: S1 normal heart sound present and S2 normal heart sound present GI Palpation (GI): Soft to palpation Skin General skin exam: no rashes or lesions noted Neuro Cranial nerves: Yes Normal hearing present Sensory Exam: No Sensory deficit (Neuro) Extrem General: Yes no clubbing, cyanosis or edema Assessment & Plan Assessment & Plan (1) Bronchiectasis: Code(s): J47.9 - Bronchiectasis, uncomplicated Qualifiers: Bronchiectasis type: with acute exacerbation Qualified Code(s): J47.1 - Bronchiectasis with (acute) exacerbation (2) Pulmonary nodule: Comment: ff'd by Dr. smith Code(s): R91.1 - Solitary pulmonary nodule (3) Hiatal hernia: Code(s): K44.9 - Diaphragmatic hernia without obstruction or gangrene Plan If recurrent hemoptysis or worsening symptoms she will call to arrange for bronchoscopy continue Advair HFA BID CPT acapella valve Will need serial CT chest, next 05/2024 hold Azithromycin MWF from the bronchiectasis reflux diet JONATHAN as needed Sleep with HOB elevated F/U 6-8 months Orders: Orders CT chest wo IV con 05/18/24 R91.1 - Solitary pulmonary nodule Coding Level of Care Code Est Pt Level 4 (04605) Diagnoses Bronchiectasis with acute exacerbation J47.1 Bronchiectasis type: with acute exacerbation Pulmonary nodule R91.1 Hiatal hernia K44.9 Time Spent (min) 17
[2023-10-19 10:24] VITALS: PULSE 89; O2SAT 95; BMI 26.5
== END 2023-10-19 10:39 | disposition home or self-care (01) ==
PROVIDERS: PCP Internal Medicine; Visit Provider Hospitalist
DX: J47.1 Bronchiectasis with (acute) exacerbation (principal); R91.1 Solitary pulmonary nodule; K44.9 Diaphragmatic hernia without obstruction or gangrene
CPT/HCPCS: 99214

== ENCOUNTER 2024-05-01 10:59 | Outpatient (REF) | payer MEDICARE, SELFPAY ==
--- NOTE | ~2024-05-01 | MM_ITS ---
EXAMINATION: MM SCREENING DIGITAL BREAST TOMOSYNTHESIS, BILATERAL CLINICAL INFORMATION: Screening. Asymptomatic. COMPARISON: Mammography: This study is compared with prior exams dating back to 2018. TECHNIQUE: Digital breast tomosynthesis is performed in both the craniocaudal and mediolateral oblique views along with computer-aided detection (CAD). Synthesized 2D images are generated from the tomosynthesis. FINDINGS: There are scattered areas of fibroglandular density (ACR BI-RADS breast composition Category b). There are no significant masses, abnormal calcifications, or other abnormalities. Bilateral benign calcifications are present. MM/MM tomosynthesis screening BI IMPRESSION: No mammographic evidence of malignancy. ASSESSMENT: BI-RADS BI-RADS 2 - Benign Findings RECOMMENDATION: Routine annual mammography screening. 1 year F/U This examination should not preclude the clinical evaluation of a suspicious palpable abnormality. This patient's information was entered into a reminder system with a target due date for their next mammogram.
== END 2024-05-01 11:00 | disposition home or self-care (01) ==
LOC: HO.MAMMO 10:59
PROVIDERS: PCP Internal Medicine; Visit Provider Internal Medicine
DX: Z12.31 Encounter for screening mammogram for malignant neoplasm of breast (principal)
CPT/HCPCS: 77063; 77067

== ENCOUNTER → 2024-05-01 11:15 | Outpatient (BNV) | payer MEDICARE, SELFPAY | PROVIDERS: PCP Internal Medicine; Visit Provider Radiology Diagnostic Radiology | DX: Z12.31 Encounter for screening mammogram for malignant neoplasm of breast (principal) | CPT/HCPCS: 77063; 77067 ==

== ENCOUNTER 2024-05-04 08:58 | Outpatient (REF) | payer MEDICARE, SELFPAY ==
[2024-05-04 13:18] LABS: Estimated Average Glucose 126 mg/dL
[2024-05-04 13:38] LABS: Alanine Aminotransferase 10 U/L (0-31); Anion Gap 14 (12-20); Aspartate Amino Transferase 15 U/L (5-31); Blood Urea Nitrogen 13 mg/dL (9-16); Calcium 9.9 mg/dL (8.4-10.2); Carbon Dioxide 28 mmol/L (22-29); Chloride 106 mmol/L (96-108); Cholesterol 190 mg/dL (<200); Estimated Glomerular Filt Rate > 60; Glucose Fasting 120 mg/dL (60-99); HDL Cholesterol 60 mg/dL (>40); LDL Cholesterol Calculated 111 mg/dL (<100); Potassium 4.2 mmol/L (3.3-5.1); Sodium 144 mmol/L (135-145); Triglycerides 97 mg/dL (<150)
== END 2024-05-04 08:59 | disposition home or self-care (01) ==
LOC: HO.HMGCLDS 08:58
PROVIDERS: PCP Internal Medicine; Visit Provider Internal Medicine
DX: Z00.01 Encounter for general adult medical examination with abnormal findings (principal); R91.1 Solitary pulmonary nodule; Z78.0 Asymptomatic menopausal state; R73.01 Impaired fasting glucose; M17.12 Unilateral primary osteoarthritis, left knee; M85.852 Other specified disorders of bone density and structure, left thigh; J47.9 Bronchiectasis, uncomplicated
CPT/HCPCS: 36415; 80048; 80061; 82306; 83036; 84450; 84460

== ENCOUNTER 2024-05-12 08:24 | Outpatient (AMB) | payer MEDICARE, SELFPAY ==
--- NOTE | 2024-05-12 08:35 | A.OFFPC_ITS ---
Intake Visit Reasons: f/u labs results Iphone [phone] Allergies codeine Allergy (Severe, Verified 05/12/24 08:49) Vomiting Medication List - Last Reconciled 05/12/24 by Kylie Lira MD albuterol sulfate 90 mcg/actuation 2 inhalations inhalation Q6H PRN 30 days calcium carbonate (Calcium 500) 500 mg PO BEDTIME cholecalciferol (vitamin D3) 50 mcg PO BEDTIME fluticasone propion-salmeterol 115-21 mcg/actuation (Advair HFA) 2 puffs inhalation Q12H 30 days lovastatin 80 mg (2 x 40 mg) PO BEDTIME multivitamin 1 tab PO BEDTIME tobramycin in 0.225 % NaCl 300 mg/5 mL (Vicente) 300 mg (5 mL) inhalation BID 28 days Tobacco use date assessed: 05/12/24 Fall risk assessment: No Falls in past year Last assessed Fall Risk: 05/12/24 Dental Screening Dental Screen Date: 05/12/24 Did you have a dental visit in the last 12 months?: Yes Did you have a dental problem in the last 6 months where you did not have access to dental care?: No Was dental information given to patient?: Patient has dentist HPI f/u labs results Iphone [phone] HPI Details 73-year-old lady wit hyperlipidemia, imp aired fasting glucose, here today for follow-up. She had recent fasting labs done which showed glucose levels well controlled, with a hemoglobin A1c now at 6%, but fasting lipids still showed elevated LDL cholesterol unchanged from before, despite taking lovastatin 80 mg at bedtime. Patient states that she has been cheating a little bit on her diet has been attending a lot of parties lately, has tried walking but not regularly due to the summer heat. Planning to go back to the gym again to exercise once school starts. [facility] Medical History Hiatal hernia Pulmonary nodule Osteopenia of left femoral neck Tubular adenoma of colon Impaired fasting glucose Menopause Dyslipidemia Surgical History Hx of colonoscopy History of surgery History of section Family History Father Anemia Mother COPD (chronic obstructive pulmonary disease) Son No problems noted. Daughter No problems noted. 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 1. Little interest or pleasure in doing things: not at all 2. Feeling down, depressed, or hopeless: not at all 3. Trouble falling or staying asleep, or sleeping too much: not at all 4. Feeling tired or having little energy: not at all 5. Poor appetite or overeating: not at all 6. Feeling bad about yourself - or that you are a failure or have let yourself or your family down: not at all 7. Trouble concentrating on things, such as reading the newspaper or watching television: not at all 8. Moving or speaking so slowly that other people could have noticed. Or the opposite - being so fidgety or restless that you have been moving around a lot more than usual: not at all 9. Thoughts that you would be better off or of hurting yourself in some way: not at all Total score: 0 Depression Screening Interpretation: Negative Depression Screening Done: Yes 09758 - PHQ-9 Billing: Yes Source: Developed by Drs. Brandon Ramirez, Julia Yost, Tyron Guillaume and colleagues, with an educational saida from [employer]. Thrive Questionnaire Date Thrive assessed: 05/12/24 I am a: Patient What is your living situation today?: I have a steady place to live Within the past 12 months, did the food you bought not last and you didn't have the money to get more?: Never true Within the past 12 months, did you worry whether your food would run out before you got money to buy more?: Never true Do you have trouble paying for medicines?: No Do you have trouble getting transportation to medical appointments?: No Do you have trouble paying your heating and electricity bill?: No Do you have trouble taking care of your child, family member or friend?: No Do you have trouble with day-to-day activities such as bathing, preparing meals, shopping, managing finances, etc.?: No Are you currently unemployed and looking for a job?: No Are you interested in more education?: No Please select the resources that you would like help with: None Currently or been in a relationship where the following occur: No concerns reported THRIVE Score: 0 AUDIT C Alcohol Use Questionnaire (AUDIT-C) 1. How often do you have a drink containing alcohol?: Monthly or less 2. How many drinks containing alcohol do you have on a typical day when you are drinking?: 1 or 2 3. How often do you have six or more drinks on one occasion?: Never Total Score: 1 Score Reviewed/Action Taken: Yes DINESH-7 AMB Questionnaire DINESH-7 Date DINESH - 7 assessed: 05/12/24 Feeling nervous, anxious, or on edge: 0 = Not at all Not being able to stop or control worryin = Not at all Worrying too much about different things: 0 = Not at all Trouble relaxin = Not at all Being so restless that it is hard to sit still: 0 = Not at all Becoming easily annoyed or irritable: 0 = Not at all Feeling afraid as if something awful might happen: 0 = Not at all Total DINESH-7 score (0-4 normal; 5-9 mild; 10-14 moderate; 15-21 severe): 0 Source: Developed by Drs. Brandon Ramirez, Julia Yost, Tyrno Guillaume and colleagues, with an educational saida from [employer]. DINESH-7 Assessment Billing DINESH-7 Assessment Tool: DINESH-7 Assessment 84318 Review of Systems Const Denies body aches, Denies fatigue, Denies fever(s), Denies headache(s) and Denies weakness ENT Denies dizziness, Denies headache(s) and Denies nasal discharge Card Denies chest pain, Denies lightheadedness, Denies palpitations and Denies dyspnea Resp Denies dyspnea GI Denies abdominal pain, Denies change in bowel habits and Denies heartburn Denies urinary frequency, Denies dysuria and Denies urinary urgency Musc Reports no additional complaints Skin/Breast Denies lesions and Denies rash Neuro Denies dizziness, Denies headache(s), Denies Sensory deficit (Neuro) and Denies weakness Psych Reports no additional complaints Endo Denies fatigue, Denies polydipsia, Denies polyuria and Denies palpitations Mitch/Lymph Denies easy bleeding, Denies easy bruising and Denies lymphadenopathy Aller/Immun Denies seasonal rhinorrhea Physical exam (Primary Care) Tobacco/Smoking Status: Tobacco use Status Tobacco use date assessed 05/12/24 05/12/24 08:38 Patient Tobacco Use Status Former Tobacco user 05/12/24 08:36 e-Cigarette/Vaping Use Never Used 05/12/24 08:36 PHQ-9: PHQ-9 Score PHQ-9: Total score 0 05/12/24 08:53 Depression Screening Interpretation: Negative Thrive Assessment: Date of Thrive Assessment Date Thrive assessed 05/12/24 05/12/24 08:38 Currently or been in a relationship where the following occur: No concerns reported Neuro Sensory Exam: No Sensory deficit (Neuro) Telehealth Telehealth Telehealth Platform: [facility] Location of provider rendering services: practice address Location of patient: address on file Patient Identification confirmed using: Name, : Yes Telehealth method: video Patient verbally consented to treatment: Yes Patient verbally consented to billing insurance company: Yes Patient informed of any privacy concerns related to visit: Yes Minutes spent on Phone/Video with Pt.: 15 Results Reviewed Results Reviewed: Laboratory Tests 09/30/23 05/04/24 06:31 10:08 Estimat Average Glucose 131 126 Hemoglobin A1c % 6.2 H 6.0 Name: Kat Trinh Age/Sex: 73/F : 1950 Unit#: [id number] Attend Dr: Kylie Lira MD Re05/04/24 Status: DEP REF Location: [facility] Disch: SPEC : [id number] BALDEMAR: 05/04/24-1008 STATUS: COMP REQ : [id number] RECD: 05/04/24-[address]: Kylie Lira MD COMP: 05/04/24-1358 ENTERED: 05/04/24-[address] [facility] [address]: ORDERED: Met Prof Fast, AST, ALT, Lipid Panel, Vitamin D 25-OH Test Result Flag Reference Sodium 144 135-145 mmol/L Potassium 4.2 3.3-5.1 mmol/L CL 106 96-108 mmol/L CO2 28 22-29 mmol/L Gap 14 12-20 BUN 13 9-16 mg/dL Creat 0.78 0.5-1.4 mg/dL EGFR > 60 NOTE: For -[place] individuals, multiply the result by 1.210. Chronic Kidney Disease: Estimated GFR < 60 mL/min/1.73m2 Severe Kidney Disease: Estimated GFR < 15 mL/min/1.73m2 FBS 120 H 60-99 mg/dL A fasting glucose from 100-125 mg/dl is considered impaired (pre-diabetes). CA 9.9 8.4-10.2 mg/dL AST (GOT) 15 5-31 U/L ALT (GPT) 10 0-31 U/L Triglyceride 97 <150 mg/dL Desirable Triglyceride: less than 150 mg/dL Borderline High Triglyceride 150-199 mg/dL High Triglyceride: 200-499 mg/dL Very High Triglyceride: greater than or equal to 5OO mg/dL Cholesterol 190 <200 mg/dL Desirable Cholesterol: less than 200 mg/dL Borderline High Cholesterol: 200-239 mg/dL High Cholesterol: greater than 239 mg/dL LDL Calculated 111 H <100 mg/dL Desirable LDL: less than 100 mg/dL Near Optimal/Above Optimal LDL: 110-129 mg/dL Borderline High LDL: 130-159 mg/dL High LDL: 160-189 mg/dL Very High LDL: greater than or equal to 190 mg/dL HDL 60 >40 mg/dL Desirable HDL: greater than 40 mg/dL Note: This HDL assay may give artificially low results in patients with liver disease. Vit D 25-OH Tot 65.0 >30 ng/mL Health Based Reference Values* < 20 ng/mL Deficient 20-30 ng/mL Insufficient > 30 ng/mL Sufficient Assessment and Plan Assessment & Plan (1) Dyslipidemia: Code(s): E78.5 - Hyperlipidemia, unspecified Plan: Reviewed recent fasting lipid profile with patient with LDL cholesterol still elevated . Lovastatin discontinued and started on low rosuvastatin 5 mg to take 1 tablet 3 times a week,, in addition to adherence to low-cholesterol diet and regular exercise, at least 30 minutes 3 to 4 times a week. Advised patient to make healthy food choices, eat more fruits, vegetables, whole grains, wild caught fish and low-fat dairy. Limit amount of meat and fried or fatty food products, as well as processed foods and fast foods. Follow-up scheduled with repeat fasting lipid panel in 3 months. (2) Impaired fasting glucose: Code(s): R73.01 - Impaired fasting glucose Plan: Your previous fasting blood sugars were elevated above 100 mg/dL. Recent labs showed good control of blood sugar, with hemoglobin A1c now at 6%. Impaired glucose metabolism increases the risk for developing diabetes mellitus type 2, as well as heart attack and stroke later on. Lifestyle changes that promotes weight loss, healthy eating habits, and regular exercise are important, and can prevent the progression to diabetes Orders: Orders Creatine Kinase Total 07/18/24 E78.5 - Hyperlipidemia, unspecified Lipid Panel 07/18/24 E78.5 - Hyperlipidemia, unspecified Aspartate Amino Transferase 07/18/24 E78.5 - Hyperlipidemia, unspecified Alanine Aminotransferase 07/18/24 E78.5 - Hyperlipidemia, unspecified Medications: New rosuvastatin 5 mg PO 3XW 3 months 39 tabs 1RF Discontinued lovastatin Discontinued Reason: Doctor's Order 80 mg (2 x 40 mg) PO BEDTIME 180 tabs 3RF Coding Level of Care Code Tele Est Pt Level 4 (82368) Complex EM visit Add On G2211 Diagnoses Dyslipidemia E78.5 Impaired fasting glucose R73.01 Additional Codes DINESH-7 Assessment Billing - DINESH-7 Assessment Tool: DINESH-7 Assessment 62941 ([id number])
== END 2024-05-12 17:42 | disposition home or self-care (01) ==
LOC: HO.HMGC 08:24
PROVIDERS: PCP Internal Medicine; Visit Provider Internal Medicine
DX: E78.5 Hyperlipidemia, unspecified (principal); R73.01 Impaired fasting glucose
CPT/HCPCS: 99214; G2211

== ENCOUNTER 2024-05-19 12:31 | Outpatient (REF) | payer MEDICARE, SELFPAY ==
--- NOTE | ~2024-05-19 | CT_ITS ---
EXAMINATION: CT CHEST WITHOUT CONTRAST CLINICAL INFORMATION: Solitary pulmonary nodule. COMPARISON: 05/29/23 TECHNIQUE: Multidetector volumetric CT imaging of the chest was done. Axial MIP volume rendering provided. Sagittal and coronal reformatted images were obtained. This CT examination was performed using dose optimization techniques as appropriate, variously including the following: *Automated exposure control *Adjustment of mA and/or kV according to patient size (this includes techniques or standardized protocols for targeted exams where dose is matched to indication/reason for exam; i.e. extremities or head) *Use of iterative reconstruction technique DLP: 137 mGy-cm FINDINGS: LUNGS: Centrilobular nodules in anterior left upper lobe with a few impacted bronchi, similar to prior study. Most multiple impacted bronchi in the right lower lobe with mild bronchiectasis. PLEURA: No pleural effusion. MEDIASTINUM: No cardiomegaly. Aorta and pulmonary artery are normal in caliber. No mediastinal adenopathy. No hilar lymphadenopathy. CORONARY ARTERY CALCIFICATION: Coronary artery calcifications are present. CHEST WALL/AXILLA: No axillary or internal mammary lymphadenopathy. UPPER ABDOMEN: Moderate hiatal hernia. Punctate nonobstructing left renal pelvis. OSSEOUS STRUCTURES: Degenerative changes of the spine. CT/CT chest wo IV con IMPRESSION: * Centrilobular nodules in the anterior left upper lobe with a few impacted bronchi, similar to prior study. Most multiple impacted bronchi in the right lower lobe with mild bronchiectasis. These findings are favored to be infectious/inflammatory in etiology. * Moderate hiatal hernia. Electronically signed by: Asiya Jarvis MD 06/26/2024 07:38 PM EDT
== END 2024-05-19 12:32 | disposition home or self-care (01) ==
LOC: HO.CT 12:31
PROVIDERS: PCP Internal Medicine; Visit Provider Hospitalist
DX: R91.1 Solitary pulmonary nodule (principal)
CPT/HCPCS: 71250

== ENCOUNTER 2024-06-13 09:48 | Outpatient (AMB) | payer MEDICARE, SELFPAY ==
--- NOTE | 2024-06-13 09:55 | MHC.OFFVIS ---
Vital Signs 06/13/24 09:57 Height 5 ft 2 in Weight 150 lb BMI 27.4 BP 128/70 Blood Pressure Location Rt brachial Position Sitting Pulse 83 Pulse Source Pulse Oximeter Pulse Oximetry (%) 96 Oxygen Delivery Method Room Air Intake Visit Reasons: COPD Director Of Property Management Required: No Allergies codeine Allergy (Severe, Verified 06/13/24 09:59) Vomiting HPI Comments Details: The patient is a 73 year woman with a known history of tobacco use in the past who apparently has been complaining of productive cough for several years. More recently in May she noticed that her cough was consistent of blood. The patient was brought to the [facility] ER where she was evaluated. She did have a CT scan of the chest that was personally by me. Appeared that she does have bronchiectatic changes in addition to that mosaic pattern suggesting air trapping. Patient was briefly admitted to the hospital. She had not been on any blood thinners. She was placed on antibiotics. Her cough improved in her hemoptysis resolved. The patient is here for follow-up. She complains of still productive cough with yellowish phlegm. Denies any evidence of any old or new blood. Denies any weight loss or night sweats. Does have some shortness of breath with activity. At this point will have the patient undergo blood work to assess her bronchiectatic changes. She does have a hiatal hernia we talked about the importance of the reflux diet. Patient also will provide us with a sputum sample both for AFB and Gram stain and culture. Patient also start respiratory therapy. If the patient developed worsening respiratory symptoms or recurrent hemoptysis she will call in order for us to set up for bronchoscopy. otherwise she will follow-up after her PFTs and blood work. 08/09/2023 the patient is here for pulmonary follow-up visit. Overall she is feeling better. We did send a sputum culture now is positive for Pseudomonas and the patient responded well to Levaquin. She is feeling better although she is starting to develop increasing chest congestion. Denies any hemoptysis. She is using her respiratory medications. She has yet to receive her Acapella valve will request 1 at this time. At this point there is no need for bronchoscopy although we will reassess her symptoms. If she develops worsening chest congestion or abnormal chest x-ray will go ahead and plan to perform bronchoscopy for airway clearance evaluation and subsequently therapy. If the patient continues to grow positive for Pseudomonas that she may be a good candidate for inhaled tobramycin. We did talk about it. At this point she will go back on azithromycin 3 times a week for her bronchiectasis. The patient has pulmonary nodules. They are small. She will need follow-up imaging studies. 10/19/2023 the patient is here for a pulmonary follow-up visit. Overall she is doing better. She was able to get a sputum sample for us for culture today. Will wait for the results. She had Pseudomonas in the past. She had responded well to the Levaquin. And then subsequently after that she was placed on azithromycin 3 times a week for her bronchiectasis. Her mucus in cough is better. She also get her Acapella valve for although she has only used it twice. I did emphasize importance of the Acapella valve in order for her to practice good bronchopulmonary hygiene and also for good exercise for her respiratory capacity. She did stop the azithromycin at this time. She opts in taking minimal medications and therefore she will hold off on this time. The mucus gets worse again then we can always restart it. Will also await the results of her microbiology. In the meantime her hemoptysis is also better. Seems like she is not getting any significant amount of blood. She will monitor that closely as well. Her last CT scan was done in May 2023 demonstrating a 5 mm pulmonary nodule and also the bronchiectatic changes. She will need a CT scan a year from that one. And will follow-up in 4-6 months. If the patient has any issues prior to that she will call the office for an earlier assessment. 06/13/2024 the patient is here for a pulmonary follow-up visit. The patient overall has been doing well. She did start the inhaled tobramycin because the Pseudomonas in the bronchiectasis. She has been using it 28 days on 28 days off. It has been affecting beneficial. Her hemoptysis has cleared completely. She did have a recent CT scan of the chest which I personally reviewed. It appears that the bronchiectasis still present but the pulmonary nodules have improved. Her treating budding also some. In the mosaic pattern also has improved. She continues on the Advair. She has a rescue inhaler. As far as vaccine she is up-to-date with all her vaccines except for the COVID-19 booster. She is going to get that soon. Otherwise the patient is doing well will continue with the current therapy with the inhaled tobramycin 28 days out 20 days off. When she returns in the spring we will talk about considering extending the 28 days off. . [facility] Medical History (Updated 06/13/24 @ 21:28 by Jose Dash MD) Dyslipidemia Hiatal hernia Pulmonary nodule Osteopenia of left femoral neck Tubular adenoma of colon Impaired fasting glucose Menopause Surgical History Hx of colonoscopy History of surgery History of section Family History Father Anemia Mother COPD (chronic obstructive pulmonary disease) Son No problems noted. Daughter No problems noted. 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 Cognitive needs: No Hearing needs: No Vision needs: Yes Review of Systems Const Denies body aches, Denies fatigue, Denies fever(s), Denies headache(s) and Denies weakness ENT Reports Normal hearing present, Denies dizziness, Denies headache(s) and Denies nasal discharge Card Denies chest pain, Denies lightheadedness, Denies palpitations and Denies dyspnea Resp Denies dyspnea GI Denies abdominal pain, Denies change in bowel habits and Denies heartburn Denies urinary frequency, Denies dysuria and Denies urinary urgency Musc Reports no additional complaints Skin/Breast Denies lesions and Denies rash Neuro Reports Normal hearing present, Denies dizziness, Denies headache(s), Denies Sensory deficit (Neuro) and Denies weakness Psych Reports no additional complaints Endo Denies fatigue, Denies polydipsia, Denies polyuria and Denies palpitations Mitch/Lymph Denies easy bleeding, Denies easy bruising and Denies lymphadenopathy Aller/Immun Denies seasonal rhinorrhea Physical Exam Vital Signs: Last Vital Signs Pulse 83 06/13/24 09:57 BP 128/70 06/13/24 09:57 Pulse Ox 96 06/13/24 09:57 Oxygen Delivery Method Room Air 06/13/24 09:57 BMI result Body Mass Index 27.4 Last Vital Signs Temp 97.8 F 05/31/23 11:10 Pulse 81 05/31/23 11:10 Resp 16 05/31/23 11:10 BP 153/67 H 05/31/23 11:10 Pulse Ox 93 05/31/23 11:10 O2 Del Method Room Air 05/31/23 11:10 BMI result Body Mass Index 27.1 Const General: comfortable HEENT Head: Yes normocephalic Neck Neck: Yes supple Chest Chest palpation & inspection: normal inspection of the chest Resp Effort & Inspection: normal respiratory effort Auscultation: no rhonchi and diminished lung sounds Cardio Rate: regular rate Rhythm: regular rhythm Heart sounds: S1 normal heart sound present and S2 normal heart sound present GI Palpation (GI): Soft to palpation Skin General skin exam: no rashes or lesions noted Neuro Cranial nerves: Yes Normal hearing present Sensory Exam: No Sensory deficit (Neuro) Extrem General: Yes no clubbing, cyanosis or edema Assessment & Plan Assessment & Plan (1) Bronchiectasis: Code(s): J47.9 - Bronchiectasis, uncomplicated Category: Medical Qualifiers: Bronchiectasis type: with acute exacerbation Qualified Code(s): J47.1 - Bronchiectasis with (acute) exacerbation (2) Pulmonary nodule: Code(s): R91.1 - Solitary pulmonary nodule Category: Medical (3) Hiatal hernia: Code(s): K44.9 - Diaphragmatic hernia without obstruction or gangrene Category: Medical Plan continue Advair HFA BID CPT acapella valve Will need serial CT chest, next 05/2025 holding off Azithromycin MWF from the bronchiectasis reflux diet JONATHAN as needed Sleep with HOB elevated continue Vicente 28 days and 28 day off F/U 6-[address]: [address] chest wo IV con 1 Year R91.1 - Solitary pulmonary nodule Coding Level of Care Code Est Pt Level 4 (78919) Complex EM visit Add On G2211 Diagnoses Bronchiectasis with acute exacerbation J47.1 Bronchiectasis type: with acute exacerbation Pulmonary nodule R91.1 Hiatal hernia K44.9 Time Spent (min) 17
[2024-06-13 09:57] VITALS: BP 128/70; PULSE 83; O2SAT 96; BMI 27.4
== END 2024-06-13 10:16 | disposition home or self-care (01) ==
PROVIDERS: PCP Internal Medicine; Visit Provider Hospitalist
DX: J47.1 Bronchiectasis with (acute) exacerbation (principal); R91.1 Solitary pulmonary nodule; K44.9 Diaphragmatic hernia without obstruction or gangrene
CPT/HCPCS: 99214; G2211

== ENCOUNTER → 2024-06-13 09:48 | Outpatient (BNVA) | payer MEDICARE, SELFPAY | PROVIDERS: PCP Internal Medicine; Visit Provider Hospitalist | DX: J47.1 Bronchiectasis with (acute) exacerbation (principal); R91.1 Solitary pulmonary nodule; K44.9 Diaphragmatic hernia without obstruction or gangrene | CPT/HCPCS: 99212 ==

== ENCOUNTER 2024-10-13 09:16 | Outpatient (REF) | payer MEDICARE, SELFPAY ==
--- OUTSIDE RECORDS SUMMARY | 2024-10-13 09:20 | XMS_ITS | Patient Health Record ---
Author Organization [facility] Address [address] [place] [address] Care Team Providers Care Repair Manager Name Role Phone Kylie Lira MD Primary Care Provider Brandon Schultz [phone] ALLERGIES Allergen (clinical drug ingredient) Drug/Non Drug Allergy documented on EMR Reaction Allergy Type Onset Date Status Codeine Phosphate Unknown Drug Allergy Active REASON FOR REFERRAL No Information MEDICATIONS Medication SIG (Take, Route, Frequency, Duration) Notes Start Date End Date Status Lovastatin Active Montelukast Sodium 10 MG 1 tablet in the evening Orally Once a day Active SOCIAL HISTORY Sex Assigned At : Social History Observation Description Sex Assigned At Unknown PROBLEMS Problem Type ICD Code Onset Dates Problem Status W/U Status Risk SNOMED Code Notes Problem Encounter for screening for malignant neoplasm of colon (Z12.11) Active confirmed 641523957 Problem Encounter for screening for malignant neoplasm of rectum (Z12.12) Active confirmed Screening for malignant neoplasm of rectum (328286005) Problem History of adenomatous polyp of colon (Z86.010) Active confirmed 872487008 Problem Preprocedural examination (Z01.818) Active confirmed 19171984 PLAN OF TREATMENT Future Test Test Name Order Date COLONOSCOPY 09/24/2015 Insurance Providers Payer Name Payer Address Payer Phone Subscriber Number Group Number Insured Name Patient Relationship to Insured Coverage Start Date Coverage End Date [facility] [id number] [place] [address] [phone] [id number] MARILYN BEARDEN Self - patient is the insured MEDICAL (GENERAL) HISTORY Medical History History ICD Code Screening colonoscopy 5-26-10--1 small t ubular adenoma removed Denies [place],DM,CVA,renal disease Hyperlipidemia Asthma Surgical History Surgery Date(Month/Year) 1 1985
[2024-10-13 13:27] LABS: Alanine Aminotransferase 11 U/L (0-31); Aspartate Amino Transferase 23 U/L (5-31); Cholesterol 206 mg/dL (<200); HDL Cholesterol 59 mg/dL (>40); LDL Cholesterol Calculated 122 mg/dL (<100); Triglycerides 129 mg/dL (<150)
== END 2024-10-13 09:17 | disposition home or self-care (01) ==
LOC: HO.HMGCLDS 09:16
PROVIDERS: PCP Internal Medicine; Visit Provider Internal Medicine
DX: E78.5 Hyperlipidemia, unspecified (principal)
CPT/HCPCS: 36415; 80061; 82550; 84450; 84460

== ENCOUNTER 2024-10-19 10:57 | Outpatient (AMB) | payer MEDICARE, SELFPAY ==
--- OUTSIDE RECORDS SUMMARY | 2024-10-19 11:48 | XMS_ITS | Patient Health Record ---
Author Organization [facility] Address [address] [place] [address] Care Team Providers Care Clerical Dentist Assistant Name Role Phone Kylie Lira MD Primary Care Provider Brandon Schulzt [phone] ALLERGIES Allergen (clinical drug ingredient) Drug/Non Drug [...] malignant neoplasm of colon (Z12.11) Active confirmed [id number] Problem Encounter for screening for malignant neoplasm of rectum (Z12.12) Active confirmed Screening for malignant neoplasm of rectum (376881062) Problem History of adenomatous polyp of colon (Z86.010) Active confirmed 627149813 Problem Preprocedural examination (Z01.818) Active confirmed [id number] PLAN OF TREATMENT Future Test Test Name Order Date COLONOSCOPY 09/24/2015 Insurance Providers Payer Name Payer Address Payer Phone Subscriber Number Group Number Insured Name Patient Relationship to Insured Coverage Start Date Coverage End Date [facility] [address] [place] [address] [phone] [id number] MARILYN BEARDEN Self - patient is the insured MEDICAL (GENERAL) HISTORY Medical History History ICD Code Screening colonoscopy 5-26-10--1 small t ubular adenoma removed Denies [place],DM,CVA,renal disease Hyperlipidemia Asthma Surgical History Surgery Date(Month/Year) 1 1985
[2024-10-19 11:51] VITALS: BP 130/62; PULSE 82; O2SAT 95; BMI 27.4
--- NOTE | 2024-10-19 11:51 | MHC.PC.OV ---
Vital Signs 10/19/24 11:51 Height 5 ft 2 in Weight 150 lb BMI 27.4 BP 130/62 Blood Pressure Location Lt brachial Position Sitting Pulse 82 Pulse Source Pulse Oximeter Pulse Oximetry (%) 95 Oxygen Delivery Method Room Air Intake Visit Reasons: Annual Physical - see comments Intake Note: Pt is here today for her PE: last mammogram 05/01/24, bone density scan 05/05/23, colonoscopy 03/14/21 Allergies codeine Allergy (Severe, Verified 10/19/24 12:09) Vomiting Medication List - Last Reconciled 10/19/24 by Kylie Lira MD calcium carbonate (Calcium 500) 500 mg PO BEDTIME cholecalciferol (vitamin D3) 50 mcg PO BEDTIME fluticasone propion-salmeterol 115-21 mcg/actuation 2 puffs PO Q12H multivitamin 1 tab PO BEDTIME rosuvastatin 5 mg PO 3XW 3 months tobramycin in 0.225 % NaCl 300 mg/5 mL (Vicente) 300 mg (5 mL) inhalation BID 28 days Ventolin HFA 90 mcg/actuation (albuterol sulfate) 2 inhalations inhalation Q6H PRN 30 days NS Tobacco use date assessed: 10/19/24 Fall risk assessment: No Falls in past year Last assessed Fall Risk: 10/19/24 Dental Screening Dental Screen Date: 10/19/24 Did you have a dental visit in the last 12 months?: Yes Did you have a dental problem in the last 6 months where you did not have access to dental care?: No Was dental information given to patient?: Patient has dentist HPI Annual Physical - see comments HPI Details 74 -year-old lady with hyperlipidemia, impaired fasting glucose, here today for her physical exam. She is up-to-date with her mammogram, last done 05/01/2024 with benign findings, had a bone density scan done 05/05/2023 which showed osteopenia in left femoral neck and left femur and normal in lumbar spine. No history of fractures she is up-to-date with her screening colonoscopy done 03/14/2021 with a hyperplastic polyp removed but is due for a recheck again in 2025 due 2 history of adenomatous polyps removed in colon on previous exams. He had recent fasting labs done which showed normal lipids last hemoglobin A1c done in 05/06/2024 was at 6% ON LICENSE OF [facility] Medical History (Updated 10/22/24 @ 17:12 by Kylie Lira MD) History of adenomatous polyp of colon Dyslipidemia Hiatal hernia Pulmonary nodule Osteopenia of left femoral neck Impaired fasting glucose Surgical History Hx of colonoscopy History of surgery History of section Family History Father Anemia Mother COPD (chronic obstructive pulmonary disease) Son No problems noted. Daughter No problems noted. 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 1. Little interest or pleasure in doing things: not at all 2. Feeling down, depressed, or hopeless: not at all 3. Trouble falling or staying asleep, or sleeping too much: not at all 4. Feeling tired or having little energy: not at all 5. Poor appetite or overeating: not at all 6. Feeling bad about yourself - or that you are a failure or have let yourself or your family down: not at all 7. Trouble concentrating on things, such as reading the newspaper or watching television: not at all 8. Moving or speaking so slowly that other people could have noticed. Or the opposite - being so fidgety or restless that you have been moving around a lot more than usual: not at all 9. Thoughts that you would be better off or of hurting yourself in some way: not at all Total score: 0 Depression Screening Interpretation: Negative Depression Screening Done: Yes 69573 - PHQ-9 Billing: Yes Source: Developed by Julia Davis.W. Priyank, Tyron Guillaume and colleagues, with an educational saida from [employer]. Thrive Questionnaire Date Thrive assessed: 10/19/24 I am a: Patient What is your living situation today?: I have a steady place to live Within the past 12 months, did the food you bought not last and you didn't have the money to get more?: Never true Within the past 12 months, did you worry whether your food would run out before you got money to buy more?: Never true Do you have trouble paying for medicines?: No Do you have trouble getting transportation to medical appointments?: No Do you have trouble paying your heating and electricity bill?: No Do you have trouble taking care of your child, family member or friend?: No Do you have trouble with day-to-day activities such as bathing, preparing meals, shopping, managing finances, etc.?: No Are you currently unemployed and looking for a job?: No Are you interested in more education?: No Please select the resources that you would like help with: None Currently or been in a relationship where the following occur: No concerns reported THRIVE Score: 0 AUDIT C Alcohol Use Questionnaire (AUDIT-C) 1. How often do you have a drink containing alcohol?: Never 2. How many drinks containing alcohol do you have on a typical day when you are drinking?: 1 or 2 3. How often do you have six or more drinks on one occasion?: Never Total Score: 0 DINESH-7 AMB Questionnaire DINESH-7 Date DINESH - 7 assessed: 10/19/24 Feeling nervous, anxious, or on edge: 0 = Not at all Not being able to stop or control worryin = Not at all Worrying too much about different things: 0 = Not at all Trouble relaxin = Not at all Being so restless that it is hard to sit still: 0 = Not at all Becoming easily annoyed or irritable: 0 = Not at all Feeling afraid as if something awful might happen: 0 = Not at all Total DINESH-7 score (0-4 normal; 5-9 mild; 10-14 moderate; 15-21 severe): 0 Source: Developed by Drs. Brandon Ramirez, Tyron Mayo and colleagues, with an educational saida from [employer]. DINESH-7 Assessment Billing DINESH-7 Assessment Tool: DINESH-7 Assessment 97932 Review of Systems Const Denies body aches, Denies fatigue, Denies fever(s), Denies headache(s) and Denies weakness Eyes Denies change in vision ENT Reports Normal hearing present and Denies headache(s) Card Denies chest pain, Denies lightheadedness, Denies palpitations and Denies dyspnea Resp Denies dyspnea GI Denies abdominal pain, Denies change in bowel habits and Denies heartburn Denies urinary frequency, Denies dysuria and Denies urinary urgency Musc Reports no additional complaints Skin/Breast Denies lesions and Denies rash Neuro Reports Normal hearing present, Denies headache(s), Denies Sensory deficit (Neuro) and Denies weakness Psych Reports no additional complaints Endo Denies fatigue, Denies polydipsia, Denies polyuria and Denies palpitations Mitch/Lymph Denies easy bleeding, Denies easy bruising and Denies lymphadenopathy Aller/Immun Denies seasonal rhinorrhea Physical exam (Primary Care) Vital Signs: Last Vital Signs Pulse 82 10/19/24 11:51 BP 130/62 10/19/24 11:51 Pulse Ox 95 10/19/24 11:51 Oxygen Delivery Method Room Air 10/19/24 11:51 BMI result Body Mass Index 27.4 Tobacco/Smoking Status: Tobacco use Status Tobacco use date assessed 10/19/24 10/19/24 11:54 Patient Tobacco Use Status Former Tobacco user 10/19/24 11:54 e-Cigarette/Vaping Use Never Used 10/19/24 11:54 Depression Screening Interpretation: Negative Thrive Assessment: Date of Thrive Assessment Date Thrive assessed 10/18/24 10/19/24 11:54 Currently or been in a relationship where the following occur: No concerns reported Const General: no acute distress and alert Orientation/consciousness: patient oriented x3 [facility] General nose exam: Normal external nose present Face and sinus: Yes face symmetric Mouth: Normal oral and palatal mucosa present and moist mucous membranes Eyes Conjunctivae: conjunctivae normal Sclerae: sclerae normal Pupils: Equal, round and reactive pupils present EOM: EOMs intact bilaterally Neck Neck: Yes full ROM and Yes no lymphadenopathy Thyroid: Thyroid normal Chest Breast/axilla palpation: normal palpation of the breasts and normal palpation of the axillae Resp Effort & Inspection: normal respiratory effort and able to speak in complete sentences Auscultation: diminished lung sounds Cardio Rate: regular rate Rhythm: regular rhythm Heart sounds: S1 normal heart sound present and S2 normal heart sound present GI Inspection: Yes normal to inspection Palpation (GI): Soft to palpation Auscultation: normal bowel sounds General: Yes no CVA tenderness Back/Spine/Pelvis Back: no CVA tenderness Skin General skin exam: no rashes or lesions noted Neuro General: patient oriented x3, gait normal, moves all extremities, no focal motor deficits and CN's II-XI intact bilaterally Cranial nerves: Yes Equal, round and reactive pupils present and Yes Normal hearing present Cognition (Neuro): normal cognition Gait exam (Neuro): Normal gait present Motor exam (neuro): 5/5 motor strength present throughout Sensory Exam: No Sensory deficit (Neuro) Extrem General: Yes normal to inspection, Yes full ROM, Yes no pedal edema and Yes normal gait Psych Appearance: grossly normal and well kempt Mental Status: mental status grossly normal Speech and movement: Normal speech and movement present Affect: normal affect Attitude: cooperative Thought process: Normal thought process present Thought content: Normal thought content present Results Reviewed Results Reviewed: Name: Kat Trinh Age/Sex: 74/F : 1950 Unit#: [id number] Attend Dr: Kylie Lira MD Re10/13/24 Status: DEP REF Location: [facility] Disch: SPEC : [id number] BALDEMAR: 10/13/24 STATUS: COMP REQ : [id number] RECD: 10/13/[address]: Kylie Lira MD COMP: 10/13/24 ENTERED: 10/13/[address]: ORDERED: AST, ALT, CK Total, Lipid Panel Test Result Flag Reference AST (GOT) 23 5-31 U/L ALT (GPT) 11 0-31 U/L CK Total 46 26-140 U/L Triglyceride 129 <150 mg/dL Desirable Triglyceride: less than 150 mg/dL Borderline High Triglyceride 150-199 mg/dL High Triglyceride: 200-499 mg/dL Very High Triglyceride: greater than or equal to 5OO mg/dL Cholesterol 206 H <200 mg/dL Desirable Cholesterol: less than 200 mg/dL Borderline High Cholesterol: 200-239 mg/dL High Cholesterol: greater than 239 mg/dL LDL Calculated 122 H <100 mg/dL Desirable LDL: less than 100 mg/dL Near Optimal/Above Optimal LDL: 110-129 mg/dL Borderline High LDL: 130-159 mg/dL High LDL: 160-189 mg/dL Very High LDL: greater than or equal to 190 mg/dL HDL 59 >40 mg/dL Desirable HDL: greater than 40 mg/dL Note: This HDL assay may give artificially low results in patients with liver disease. Coding Level of Care Code Est Pt Prev Care >65y(48754) Diagnoses Annual visit for general adult medical examination with abnormal findings Z00. Osteopenia of left femoral neck M85.852 Dyslipidemia E78.5 Bronchiectasis with acute exacerbation J47.1 Bronchiectasis type: with acute exacerbation Impaired fasting glucose R73.01 Pulmonary nodule R91.1 Hiatal hernia K44.9 History of adenomatous polyp of colon Z86.0101 Additional Codes PHQ-9 - 92712 - PHQ-9 Billing: Yes ([id number]) DINESH-7 Assessment Billing - DINESH-7 Assessment Tool: DINESH-7 Assessment 88932 ([id number]) Assessment & Plan Assessment & Plan (1) Annual visit for general adult medical examination with abnormal findings: Code(s): Z00.01 - Encounter for general adult medical examination with abnormal findings Plan: Recent fasting lab results reviewed with patient. Continue with regular dental visit every 6 months and regular eye exams, at least every 2 years. Take adequate calcium in diet and vitamin-D 3 at 2000 IU per cap once a day, in addition to weight-bearing exercises to help maintain good muscle tone and weight control. Has osteopenia in multiple sites, repeat bone density scan ordered. Up-to-date with her screening mammogram and screening colonoscopy. Up-to-date with all her vaccinations except for the latest COVID booster (2) Osteopenia of left femoral neck: Code(s): M85.852 - Other specified disorders of bone density and structure, left thigh Category: Medical Plan: Ordered a repeat bone density scan. Forced importance of doing regular exercise and taking adequate calcium from dietary sources and continue taking vitamin-D 3 at least 2000 units daily (3) Dyslipidemia: Code(s): E78.5 - Hyperlipidemia, unspecified Category: Medical Plan: Continue on rosuvastatin 5 mg 1 tablet 3 times a week (4) Bronchiectasis: Code(s): J47.9 - Bronchiectasis, uncomplicated Category: Medical Qualifiers: Bronchiectasis type: with acute exacerbation Qualified Code(s): J47.1 - Bronchiectasis with (acute) exacerbation Plan: Followed at pulmonary clinic, currently on Advair HFA 1 inhalation twice a day, and use of CPT Acapella valve, currently on Vicente 28 days on and 28 day off Will need serial CT chest, next 05/2025 (5) Impaired fasting glucose: Code(s): R73.01 - Impaired fasting glucose Category: Medical Plan: Your previous fasting blood sugars were elevated above 100 mg/dL. Impaired glucose metabolism increases the risk for developing diabetes mellitus type 2, as well as heart attack and stroke later on. Lifestyle changes that promotes weight loss, healthy eating habits, and regular exercise are important, and can prevent the progression to diabetes (6) Pulmonary nodule: Code(s): R91.1 - Solitary pulmonary nodule Category: Medical Plan: Followed by Pulmonary, gets serial CT of chest yearly, has 1 scheduled in 05/2025 (7) Hiatal hernia: Code(s): K44.9 - Diaphragmatic hernia without obstruction or gangrene Category: Medical Plan: With head of bed when sleeping (8) History of adenomatous polyp of colon: Comment: 2010 adenoma, 2016 no polyps- recent colonoscopy with polypectomy hyperplastic polyps repeat 5 years given previous history. 2020 - hyperplastic polyp removed Code(s): Z86.0101 - Personal history of adenomatous and serrated colon polyps Category: Medical Plan: Repeat colonoscopy due again in 2025 Orders: Orders XR DEXA axial skeleton 10/19/24 M85.852 - Other specified disorders of bone density and structure, left thigh Medications: Refilled rosuvastatin 5 mg PO 3XW 39 tabs 3RF 3 months
== END 2024-10-19 12:29 | disposition home or self-care (01) ==
PROVIDERS: PCP Internal Medicine; Visit Provider Internal Medicine
DX: Z00.01 Encounter for general adult medical examination with abnormal findings (principal); M85.852 Other specified disorders of bone density and structure, left thigh; E78.5 Hyperlipidemia, unspecified; J47.1 Bronchiectasis with (acute) exacerbation; R73.01 Impaired fasting glucose; R91.1 Solitary pulmonary nodule; K44.9 Diaphragmatic hernia without obstruction or gangrene; Z86.0101 Personal history of adenomatous and serrated colon polyps

== ENCOUNTER 2025-01-31 09:42 | Outpatient (AMB) | payer MEDICARE, SELFPAY ==
[2025-01-31 09:49] VITALS: BP 140/64; PULSE 80; O2SAT 94; BMI 27.6
--- NOTE | 2025-01-31 09:49 | A.OFFVIS_ITS ---
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 More recently in May she noticed that her cough was consistent of blood. The patient was brought to the [facility] ER where she was evaluated. She did have a CT scan of the chest that was personally by me. Appeared that she does have bronchiectatic changes in addition to that mosaic pattern suggesting air trapping. Patient was briefly admitted to the hospital. She had not been on any blood thinners. She was placed on antibiotics. Her cough improved in her hemoptysis resolved. The patient is here for follow-up. She complains of still productive cough with yellowish phlegm. Denies any evidence of any old or new blood. Denies any weight loss or night sweats. Does have some shortness of breath with activity. At this point will have the patient undergo blood work to assess her bronchiectatic changes. She does have a hiatal hernia we talked about the importance of the reflux diet. Patient also will provide us with a sputum sample both for AFB and Gram stain and culture. Patient also start respiratory therapy. If the patient developed worsening respiratory symptoms or recurrent hemoptysis she will call in order for us to se t up for bronchoscopy. otherwise she will follow-up after her PFTs and blood work. 08/09/2023 the patient is here for pulmonary follow-up visit. Overall she is feeling better. We did send a sputum culture now is positive for Pseudomonas and the patient responded well to Levaquin. She is feeling better although she is starting to develop increasing chest congestion. Denies any hemoptysis. She is using her respiratory medications. She has yet to receive her Acapella valve will request 1 at this time. At this point there is no need for bronchoscopy although we will reassess her symptoms. If she develops worsening chest congestion or abnormal chest x-ray will go ahead and plan to perform bronchoscopy for airway clearance evaluation and subsequently therapy. If the patient continues to grow positive for Pseudomonas that she may be a good candidate for inhaled tobramycin. We did talk about it. At this point she will go back on azithromycin 3 times a week for her bronchiectasis. The patient has pulmonary nodules. They are small. She will need follow-up imaging studies. 10/19/2023 the patient is here for a pulmonary follow-up visit. Overall she is doing better. She was able to get a sputum sample for us for culture today. Will wait for the results. She had Pseudomonas in the past. She had responded well to the Levaquin. And then subsequently after that she was placed on azithromycin 3 times a week for her bronchiectasis. Her mucus in cough is better. She also get her Acapella valve for although she has only used it twice. I did emphasize importance of the Acapella valve in order for her to practice good bronchopulmonary hygiene and also for good exercise for her respiratory capacity. She did stop the azithromycin at this time. She opts in taking minimal medications and therefore she will hold off on this time. The mucus gets worse again then we can always restart it. Will also await the results of her microbiology. In the meantime her hemoptysis is also better. Seems like she is not getting any significant amount of blood. She will monitor that closely as well. Her last CT scan was done in May 2023 demonstrating a 5 mm pulmonary nodule and also the bronchiectatic changes. She will need a CT scan a year from that one. And will follow-up in 4-6 months. If the patient has any issues prior to that she will call the office for an earlier assessment. 06/13/2024 the patient is here for a pulmonary follow-up visit. The patient overall has been doing well. She did start the inhaled tobramycin because the Pseudomonas in the bronchiectasis. She has been using it 28 days on 28 days off. It has been affecting beneficial. Her hemoptysis has cleared completely. She did have a recent CT scan of the chest which I personally reviewed. It appears that the bronchiectasis still present but the pulmonary nodules have improved. Her treating budding also some. In the mosaic pattern also has improved. She continues on the Advair. She has a rescue inhaler. As far as vaccine she is up-to-date with all her vaccines except for the COVID-19 booster. She is going to get that soon. Otherwise the patient is doing well will continue with the current therapy with the inhaled tobramycin 28 days out 20 days off. When she returns in the spring we will talk about considering extending the 28 days off. 01/31/2025 the patient is here for a pulmonary follow-up visit. Overall she is doing well. She continues on the inhaled SONIA 20 days on 20 days off. Her chest congestion is improved. Will try to taper her a little bit to 28 days on and 42 days off. If she continues to do well will plan to increase it further to 56 days off. In the meantime she continues to use a new inhaler well. She is getting Symbicort. Some expensive right now but when she history to But she be cheaper. Is helping her breathe better. She still has some shortness of breath with activity but mild. She is starting to walk more. Her last CT scan of the chest was back in May 2024 demonstrating the bronchiectatic changes in addition to the pulmonary nodules. She will be scheduled to get another CAT scan around May/June of 2025. Will follow-up with her at some point after that. If she has any issues prior to that she will call the office for further recommendations. [facility] Medical History (Updated 10/22/24 @ 17:12 by Kylie Lira MD) History of adenomatous polyp of colon Dyslipidemia Hiatal hernia Pulmonary nodule Osteopenia of left femoral neck Impaired fasting glucose Surgical History Hx of colonoscopy History of surgery History of section Family History Father Anemia Mother COPD (chronic obstructive pulmonary disease) Son No problems noted. Daughter No problems noted. 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 Cognitive needs: No Hearing needs: No Vision needs: Yes Review of Systems Const Denies chills, Denies fatigue, Denies fever(s), Denies weight gain and Denies weight loss ENT Reports Normal hearing present and Denies dizziness Card Denies chest pain, Denies leg edema, Denies lightheadedness, Denies palpitations, Denies dyspnea on exertion, Denies orthopnea and Denies other Resp Denies cough and Denies dyspnea on exertion GI Denies hematochezia and Denies change in stool character Denies urinary frequency, Denies dysuria and Denies urinary urgency Musc Denies abnormal gait, Denies muscle weakness, Denies numbness, Denies radiating pain into limb and Denies tingling Skin/Breast Denies lesions and Denies rash Neuro Reports Normal hearing present, Denies abnormal gait, Denies dizziness, Denies numbness, Denies Sensory deficit (Neuro) and Denies tingling Psych Reports no additional complaints Endo Denies fatigue and Denies palpitations Mitch/Lymph Denies easy bleeding, Denies easy bruising and Denies lymphadenopathy Aller/Immun Denies seasonal rhinorrhea Physical Exam Vital Signs: Last Vital Signs Pulse 80 01/31/25 09:49 BP 140/64 H 01/31/25 09:49 Pulse Ox 94 01/31/25 09:49 Oxygen Delivery Method Room Air 01/31/25 09:49 BMI result Body Mass Index 27.6 Last Vital Signs Temp 97.8 F 05/31/23 11:10 Pulse 81 05/31/23 11:10 Resp 16 05/31/23 11:10 BP 153/67 H 05/31/23 11:10 Pulse Ox 93 05/31/23 11:10 O2 Del Method Room Air 05/31/23 11:10 BMI result Body Mass Index 27.1 Const General: comfortable HEENT Head: Yes normocephalic Neck Neck: Yes supple Chest Chest palpation & inspection: normal inspection of the chest Resp Effort & Inspection: normal respiratory effort Auscultation: no rhonchi and diminished lung sounds Cardio Rate: regular rate Rhythm: regular rhythm Heart sounds: S1 normal heart sound present and S2 normal heart sound present GI Palpation (GI): Soft to palpation Skin General skin exam: no rashes or lesions noted Neuro Cranial nerves: Yes Normal hearing present Sensory Exam: No Sensory deficit (Neuro) Extrem General: Yes no clubbing, cyanosis or edema Assessment & Plan Assessment & Plan (1) Bronchiectasis: Code(s): J47.9 - Bronchiectasis, uncomplicated Category: Medical Qualifiers: Bronchiectasis type: with acute exacerbation Qualified Code(s): J47.1 - Bronchiectasis with (acute) exacerbation (2) Pulmonary nodule: Code(s): R91.1 - Solitary pulmonary nodule Category: Medical (3) Hiatal hernia: Code(s): K44.9 - Diaphragmatic hernia without obstruction or gangrene Category: Medical Plan continue symbicort HFA BID CPT acapella valve Will need serial CT chest, next 05/2025 holding off Azithromycin MWF from the bronchiectasis reflux diet JONATHAN as needed Sleep with HOB elevated change Sonia 28 days on and 42 day off F/U 4-6 months Medications: Discontinued fluticasone propion-salmeterol 115-21 mcg/actuation Discontinued Reason: Doctor's Order 2 puffs PO Q12H 12 grams 0RF Coding Level of Care Code Est Pt Level 4 (80309) Complex EM visit Add On G2211 Diagnoses Bronchiectasis with acute exacerbation J47.1 Bronchiectasis type: with acute exacerbation Pulmonary nodule R91.1 Hiatal hernia K44.9 Time Spent (min) 17
--- OUTSIDE RECORDS SUMMARY | 2025-01-31 10:52 | XMS_ITS | Patient Health Record ---
Author Organization [facility] Address [address] [place] [address] Care Team Providers Care Restorative Aide Name Role Phone Soraya PUENTE, Kylie Primary Care Provider Brandon Schultz [phone] Allergies Allergen (clinical drug ingredient) Drug/Non Drug Allergy documented on EMR Reaction Allergy Type Onset Date Status Codeine Phosphate Unknown Drug Allergy Active Reason For Referral No Information Medications Medication SIG (Take, Route, Frequency, Duration) Notes Start Date End Date Status Lovastatin Active Montelukast Sodium 10 MG 1 tablet in the evening Orally Once a day Active Problems Problem Type SNOMED Code ICD Code Onset Dates Problem Status W/U Status Risk Notes Problem [id number] Encounter for screening for malignant neoplasm of colon (Z12.11) Active confirmed Problem [id number] History of adenomatous polyp of colon (Z86.010) Active confirmed Problem Screening for malignant neoplasm of rectum (090889730) Encounter for screening for malignant neoplasm of rectum (Z12.12) Active confirmed Problem [id number] Preprocedural examination (Z01.818) Active confirmed Plan Of Treatment Future Test Test Name Order Date COLONOSCOPY 09/24/2015 Insurance Providers Payer Name Payer Address Payer Phone Subscriber Number Group Number Insured Name Patient Relationship to Insured Coverage Start Date Coverage End Date [facility] [address] [place] [address] [id number] MARILYN BEARDEN Self - patient is the insured Medical (General) History Medical History History ICD Code Screening colonoscopy 5-26-10--1 small t ubular adenoma removed Denies AR,DM,CVA,renal disease Hyperlipidemia Asthma Surgical History Surgery Date(Month/Year) 1 1985
== END 2025-01-31 10:13 | disposition home or self-care (01) ==
LOC: HO.HPS 09:43
PROVIDERS: PCP Internal Medicine; Visit Provider Hospitalist
DX: J47.1 Bronchiectasis with (acute) exacerbation (principal); R91.1 Solitary pulmonary nodule; K44.9 Diaphragmatic hernia without obstruction or gangrene
CPT/HCPCS: 99214; G2211

== ENCOUNTER → 2025-01-31 09:42 | Outpatient (BNVA) | payer MEDICARE, SELFPAY | PROVIDERS: PCP Internal Medicine; Visit Provider Hospitalist | DX: J47.1 Bronchiectasis with (acute) exacerbation (principal); R91.1 Solitary pulmonary nodule; K44.9 Diaphragmatic hernia without obstruction or gangrene | CPT/HCPCS: 99212 ==

== ENCOUNTER 2025-05-24 12:19 | Inpatient (IN) | payer MEDICARE, SELFPAY ==
--- NOTE | ~2025-05-24 | XR_ITS ---
EXAMINATION: XR CHEST CLINICAL INFORMATION: dyspnea, wheezing COMPARISON: 05/29/2023. TECHNIQUE: 2 views of the chest were obtained. FINDINGS: The cardiac, hilar, and mediastinal contours are normal. The lungs are diffusely hyperaerated, however clear bilaterally. There is no pneumothorax or pleural effusion. There is no focal osseous or soft tissue abnormality. There are degenerative changes in the shoulder joints and spine. XR/XR chest 2V IMPRESSION: COPD. No active superimposed disease. Electronically signed by: Richard Ramon MD 05/24/2025 01:21 PM EDT
[2025-05-24 12:38] VITALS: BP 184/78; PULSE 94; RESP 18; TEMP 37; O2SAT 90; BMI 26.5
--- NOTE | 2025-05-24 12:40 | ED_ITS ---
HPI - General Adult General Chief complaint: Dyspnea Stated complaint: Difficulty breathing Time Seen by Provider: 05/24/25 17:06 Source: patient Mode of arrival: ambulatory Limitations: no limitations History of Present Illness ED Provider: Vicki Lozoya PA-C HPI narrative: Patient is a 74-year-old female with a history of COPD, osteoarthritis, and hyperlipidemia, presenting from home with progressive cough and shortness of breath, now worsening. She reports that earlier today, while walking her dog, she became so short of breath she could barely make it back home. She is also experiencing shortness of breath during basic activities, such as taking a shower. The cough is present throughout the day, most productive in the mornings, with thick yellow mucus. She denies hemoptysis. She uses a nebulizer, albuterol inhaler, and Symbicort (1 puff BID) at home. She is compliant with her medications. She describes occasional chills, most recently last Wednesday, and reports a decreased appetite over the past week. Denies fevers or recent weight changes, chest pain or palpitations. She notes lightheadedness during coughing fits. No GI or complaints. Onset (ago): week(s) (3) Relieving factors: none Exacerbating factors: movement Associated symptoms: denies other symptoms Related Data Home Medications ?Medication ?Instructions ?Recorded ?Confirmed cholecalciferol (vitamin D3) 50 50 mcg PO BEDTIME 10/1905/24/25 mcg (2,000 unit) capsule calcium carbonate (Calcium 500) 500 mg PO BEDTIME 03/0705/24/25 multivitamin 1 tab PO BEDTIME 01/20/21 rosuvastatin 5 mg tablet 5 mg PO MOWEFR 05/24/2505/11 Previous Rx's ?Medication ?Instructions ?Recorded albuterol sulfate 90 mcg/actuation 2 inh inhalation Q6 H PRN shortness 11/03/24 aerosol inhaler of breath or wheezing 30 day s #18 grams budesonide-formoterol HFA 160 2 puff inhalation BID 30 days 01/08/25 mcg-4.5 mcg/actuation aerosol #10.2 grams inhaler (Breyna) Allergies Allergy/AdvReac Type Severity Reaction Status Date / Time codeine Allergy Severe Vomiting Verified 08/07/25 12:39 Review of Systems 2 Constitutional: Constitutional: Reports no additional constitutional complaints, Denies chills, Denies fever(s), Denies night sweats and Reports poor appetite Eyes: Eyes: Reports no additional eye complaints, Denies blurry vision, Denies change in vision, Denies diplopia, Denies eye discharge, Denies loss of vision and Denies eye pain ENT: Denies dizziness Cardiovascular: Cardiovascular: Reports no additional cardiovascular complaints, Denies chest pain, Reports lightheadedness (after coughing fits), Denies Loss of Consciousness and Reports dyspnea Respiratory: Respiratory: Reports no additional respiratory complaints, Reports change in phlegm color (yellow and thick), Reports cough and Reports dyspnea Gastrointestinal: Gastrointestinal: Reports no additional gastrointestinal complaints, Denies abdominal pain and Denies change in bowel habits Genitourinary: Genitourinary: Reports no additional female genitourinary complaints, Denies hematuria and Denies dysuria Musculoskeletal: Musculoskeletal: Reports no additional musculoskeletal complaints, Denies numbness and Denies tingling Neurologic: Denies dizziness, Denies loss of vision, Denies numbness and Denies tingling Psychiatric: Psychiatric: Reports no additional psychiatric complaints Endocrine: Endocrine: Reports no additional endocrine complaints Hematologic/Lymphatic: Hematologic/Lymphatic: Reports no additional hematologic/lymphatic complaints Allergic/Immunologic: Allergic/Immunologic: Reports no additional allergic/immunologic complaints [facility] Past Medical History Attestation statement: The following information was validated with the patient. Source: old records reviewed and nursing notes reviewed Medical History History of adenomatous polyp of colon Dyslipidemia Hiatal hernia Pulmonary nodule Osteopenia of left femoral neck Impaired fasting glucose Surgical History Hx of colonoscopy History of surgery History of section Family History Family History Father Anemia Mother COPD (chronic obstructive pulmonary disease) Son No problems noted. Daughter No problems noted. 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 Cognitive needs: No Hearing needs: No Vision needs: Yes Physical Exam ED Vital Signs: Vital Signs - 24 hr 05/24/25 12:38 05/24/25 17:14 05/24/25 18:16 Temperature 98.6 F Pulse Rate 94 94 98 Respiratory Rate 18 16 20 Blood Pressure 184/78 H 167/92 H Pulse Oximetry 90 L 95 Oxygen Delivery Method Room Air Room Air BMI result Body Mass Index 26.5 Const General: cooperative, no acute distress, alert and awake Nutritional Appearance: well nourished Orientation/consciousness: patient oriented x3 HENMT Head: Yes normal to inspection and Yes atraumatic Ears: hearing grossly normal bilaterally and external ears normal General nose exam: Normal external nose present, no nasal discharge noted and no epistaxis Face and sinus: Yes normal facial exam, No abrasion and No laceration Mouth: Normal oral and palatal mucosa present, no drooling and no muffled voice Eyes General: appearance normal, both eyes and all related structures Periorbital: periorbital findings normal Eyelids: Yes eyelids normal Conjunctivae: conjunctivae normal Pupils: Equal, round and reactive pupils present EOM: EOMs intact bilaterally Neck Neck: Yes normal visual inspection, Yes full ROM and Yes no lymphadenopathy Resp Effort & Inspection: able to speak in complete sentences and Actively coughing Quality: actively coughing Auscultation: wheezes expiratory wheezes and inspiratory wheezes Neuro General: patient oriented x3, moves all extremities and CN's II-XI intact bilaterally Cranial nerves: Yes Equal, round and reactive pupils present Cognition (Neuro): normal cognition Extrem General: Yes normal to inspection, Yes full ROM and Yes capillary refill normal Psych Appearance: grossly normal Mental Status: mental status grossly normal Affect: normal affect Attitude: cooperative Thought process: Normal thought process present Thought content: Normal thought content present Insight: Good insight present (Psych) Course Course Course Narrative: This is a rapid medical exam performed by Summer Mooney NP: Additional HPI, ROS, PE not included below will be deferred to primary provider. Patient is a 74-year-old female with history of dyslipidemia, hiatal hernia, pulmonary nodule, bronchiectasis presenting to the emergency department with complaint of worsening dyspnea over the past week with productive cough, wheezing noted in triage. Also reports decreased appetite. Plan: EKG, chest x-ray labs, viral serology Medications Administered Generic Name Dose Route Start Last Admin Trade Name Freq PRN Reason Stop Dose Admin Enoxaparin Sodium 40 mg 05/24/25 19:00 05/24/25 19:58 Enoxaparin Sodium 40 Mg/0.4 Ml Syringe SUBCUT 40 mg Q24H ROSARIO Administration Guaifenesin 10 ml 05/24/25 19:00 05/24/25 19:58 Guaifenesin 200 Mg/10 Ml 10 Ml Liquid PO 10 ml Q6H ROSARIO Administration Levofloxacin 750 mg 05/24/25 20:00 05/24/25 19:58 Levofloxacin 750 Mg Tablet PO 750 mg Q24H ROSARIO Administration Discontinued Medications Generic Name Dose Route Start Last Admin Trade Name Freq PRN Reason Stop Dose Admin Azithromycin 500 mg 05/24/25 17:07 05/24/25 17:46 Azithromycin 500 Mg Tablet PO 05/24/25 17:08 500 mg ONCE ONE Administration Ceftriaxone Sodium 1 gm 05/24/25 18:38 05/24/25 19:58 Ceftriaxone Sodium 1 Gm Vial IVPUSH 05/24/25 18:39 1 gm ONCE ONE Administration Albuterol Sulfate 2.5 mg/ 0 mg 05/24/25 18:08 05/24/25 18:15 Albuterol/Ipratropium 3 ml INHALE 05/24/25 18:09 1 dose ONCE ONE Administration Magnesium Sulfate/Dextrose 1 gm in 100 mls @ 100 mls/hr 05/24/25 17:07 05/24/25 18:46 Magnesium Sulfate/D5w IV 05/24/25 18:06 Infused ONCE ONE Infusion Methylprednisolone Sodium Succinate 60 mg 05/24/25 17:07 05/24/25 17:46 Methylprednisolone Sod Succ 125 Mg/2 Ml Vial IV 05/24/25 17:08 60 mg ONCE ONE Administration Medical Decision Making Medical Decision Making MDM Narrative: Patient is a 74-year-old female with a history of COPD, osteoarthritis, and hyperlipidemia, presenting from home with progressive cough and shortness of breath, now worsening. Patient's physical exam was as noted in the physical exam portion of this note and most consistent with a COPD exacerbation. Patient's blood work was unremarkable. Patient's EKG was unremarkable. Patient's chest x- ray showed COPD. I explained my physical exam findings as well as all test results to the patient. I answered all questions asked by the patient. Patient received IV solu-medrol, magnesium, and breathing treatments which, upon re- evaluation, she stated it helped her symptoms some. Patient's clinical presentation is not consistent with sepsis (@1800). Patient continued to have shortness of breath. I spoke with the hospitalist team who agreed to admission. Patient verbalized agreement and understanding with this treatment plan and admission. Differential Diagnosis Differential Diagnoses: The differential diagnosis associated with the presentation includes Shortness of breath COPD Cough Admission/Observation Consideration of admission/observation: Escalation of care including admission/observation considered Patient admitted as noted in the MDM Rationale portion of this note. Consult Healthcare Provider Management of the patient was discussed with: Hospitalist (agreed to admission as noted in the MDM Rationale portion of this note. ) Lab Data [facility] Lab Attestation statement: I reviewed the patient's lab results. My interpretation of these results are in the MDM Rationale portion of this note. 05/24/25 13:18 05/24/25 13:18 Labs: Lab Results 05/24/25 Range/Units 13:18 WBC 9.1 (4.8-10.8) X10*3/uL RBC 4.75 (4.20-5.50) X10*6/uL Hgb 14.4 (12.0-16.0) g/dl Hct 45.8 (37.0-47.0) % MCV 96.4 (80.0-98.0) fL MCH 30.3 (27.0-33.0) pg MCHC 31.4 (31.0-35.0) g/dl RDW 12.6 (11.0-16.0) % Plt Count 395 D (160-400) X10*3/uL MPV 9.5 (9.4-12.3) fL Immature Gran % (Auto) 0.2 (0.0-0.4) % Neut % (Auto) 81.0 H (45-73) % Lymph % (Auto) 10.4 L (20-40) % [place] % (Auto) 6.6 (2-11) % Eos % (Auto) 1.1 (0-4) % Baso % (Auto) 0.7 (0-2) % Lymph # (Auto) 0.9 L (1.2-4.9) X10*3/uL [place] # (Auto) 0.6 (0.1-1.2) X10*3/uL Eos # (Auto) 0.1 (0.0-0.4) X10*3/uL Baso # (Auto) 0.1 (0.0-0.2) X10*3/uL Abs Immat Gran (auto) 0.02 (0.00-0.03) X10*3/uL Absolute Neuts (auto) 7.3 (2.0-8.3) x10*3/uL Absolute Nucleated RBC 0.000 (0.0-0.012) X10*3/uL Nucleated RBC % (auto) 0.0 (0.0-0.2) /100WBC PT 13.2 H (10.9-12.4) SEC INR 1.2 H (0.9-1.1) Sodium 144 (135-145) mmol/L Potassium 4.7 (3.3-5.1) mmol/L Chloride 105 (96-108) mmol/L Carbon Dioxide 31 H (22-29) mmol/L Anion Gap 13 (12-20) BUN 10 (9-16) mg/dL Creatinine 0.78 (0.5-1.4) mg/dL Estim Creat Clear Calc 58.0 Estimated GFR > 60 Random Glucose 137 H (60-115) mg/dL Calcium 9.7 (8.4-10.2) mg/dL Total Bilirubin 0.3 (0.0-1.0) mg/dL AST 19 (5-31) U/L ALT 13 (0-31) U/L Alkaline Phosphatase 97 (39-117) U/L Troponin I High Sens 8.6 (<3.5-17.0) ng/L B-Natriuretic Peptide 136 H (<100) pg/mL Total Protein 7.4 (6.5-8.0) g/dL Albumin 4.0 (3.5-5.0) g/dL Influenza Type A (PCR) NEGATIVE (Negative) Influenza Type B (PCR) NEGATIVE (Negative) RSV RNA Qual (PCR) NEGATIVE (Negative) SARS-CoV-2 RNA (RT-PCR) NEGATIVE (Negative) Independent Interpretation I performed an independent interpretation of an: Plain X-Ray Interpretation: My interpretation is in agreement with the radiologist's impression of this imaging study. L EXAMINATION: XR CHEST CLINICAL INFORMATION: dyspnea, wheezing COMPARISON: 05/29/2023. TECHNIQUE: 2 views of the chest were obtained. FINDINGS: The cardiac, hilar, and mediastinal contours are normal. The lungs are diffusely hyperaerated, however clear bilaterally. There is no pneumothorax or pleural effusion. There is no focal osseous or soft tissue abnormality. There are degenerative changes in the shoulder joints and spine. XR/XR chest 2V IMPRESSION: COPD. No active superimposed disease. Electronically signed by: Richard Ramon MD 05/24/2025 01:21 PM EDT RP Dictated By: Richard Ramon MD Signed By: Electronically signed by Richard Ramon MD 05/24/25 1321 I independently interpreted this EKG and am in agreement with the below findings: Vent. Rate: 156 BPM Atrial Rate: 104 BPM P-R Int: 138 ms QRS Dur: 64 ms QT Int: 308 ms P-R-T Axes: 67 21 64 degrees QTcB Int: 496 ms Undetermined rhythm No previous ECGs available DD/ 1303 Radiology Impression Discussion of test interpretation with radiology: I have reviewed the radiologist's reading. Critical Care Time Critical Care Time Critical Care Time: Yes Total Critical Care Time: 34 Attestation: I spent 34 minutes of Critical Care Time with this patient. This does not include time spent on separately reported billable procedures. Discharge Plan Discharge Clinical Impression: COPD exacerbation Patient Disposition: Admitted As Inpatient
--- NOTE | 2025-05-24 12:40 | ECG_ITS ---
Test Reason : DYSPNEA Blood Pressure : */* mmHG Vent. Rate : 156 BPM Atrial Rate : 104 BPM P-R Int : 138 ms QRS Dur : 64 ms QT Int : 308 ms P-R-T Axes : 67 21 64 degrees QTcB Int : 496 ms Normal sinus rhythm Low voltage QRS Cannot rule out Anterior infarct , age undetermined Premature ventricular complexes Abnormal ECG No previous ECGs available Referred By: Colleen Mooney Electronically Signed By: BERNARD SIDDIQUI
[2025-05-24 13:29] LABS: MANUAL DIFF FLAG NO
[2025-05-24 13:35] LABS: Hematocrit 45.8 % (37.0-47.0); Hemoglobin 14.4 g/dl (12.0-16.0); Imm Gran Abs Auto 0.02 X10*3/uL (0.00-0.03); Imm Gran Pct Auto 0.2 % (0.0-0.4); Lymphocytes Absolute Auto 0.9 X10*3/uL (1.2-4.9); Mean Corpuscular HGB Conc 31.4 g/dl (31.0-35.0); Mean Corpuscular Hemoglobin 30.3 pg (27.0-33.0); Mean Corpuscular Volume 96.4 fL (80.0-98.0); NRBC Abs Auto 0.000 X10*3/uL (0.0-0.012); NRBC Pct Auto 0.0 /100WBC (0.0-0.2); Platelet Count 395 X10*3/uL (160-400); Red Blood Count 4.75 X10*6/uL (4.20-5.50); White Blood Count 9.1 X10*3/uL (4.8-10.8)
[2025-05-24 13:36] LABS: INTERNATIONAL NORM RATIO 1.2 (0.9-1.1); Prothrombin Time 13.2 SEC (10.9-12.4)
[2025-05-24 13:44] LABS: Alanine Aminotransferase 13 U/L (0-31); Albumin Level 4.0 g/dL (3.5-5.0); Alkaline Phosphatase 97 U/L (39-117); Anion Gap 13 (12-20); Aspartate Amino Transferase 19 U/L (5-31); Blood Urea Nitrogen 10 mg/dL (9-16); Calcium 9.7 mg/dL (8.4-10.2); Carbon Dioxide 31 mmol/L (22-29); Chloride 105 mmol/L (96-108); Creatinine Clr Calc Pharmacy 58.0; Estimated Glomerular Filt Rate > 60; Potassium 4.7 mmol/L (3.3-5.1); Sodium 144 mmol/L (135-145); Total Protein 7.4 g/dL (6.5-8.0)
[2025-05-24 13:50] LABS: B Type Natriuretic Peptide 136 pg/mL (<100)
[2025-05-24 13:53] LABS: Troponin-I High Sensitivity 8.6 ng/L (<3.5-17.0)
[2025-05-24 14:22] LABS: Resp Syncy Virus RNA Qual PCR NEGATIVE (Negative); SARS COV2 PCR INHOUSE NEGATIVE (Negative)
[2025-05-24 17:14] VITALS: BP 167/92; PULSE 94; RESP 16; O2SAT 95
[2025-05-24] MEDS: Albuterol Sulfate 2.5 MG, Albuterol/Iprat 2.5/0.5MG 3 ML 3 ML INHALE (18:15)
[2025-05-24 18:16] VITALS: PULSE 98; RESP 20; O2SAT 92
--- NOTE | 2025-05-24 19:06 | PM.IMHP ---
History of Present Illness Date of Service: 05/24/25 Chief Complaint: Dyspnea This has a 74-year-old female with pertinent history of COPD not on home oxygen, history of bronchiectasis, mixed hyperlipidemia who presents to the emergency department for evaluation of dyspnea and cough. Patient states she has ongoing progressive symptoms that started about 1 week ago. She has been having dyspnea which is worse with exertion. On the day of presentation, patient could not walk her dog due to dyspnea. Also has associated wheezing and productive cough with yellowish sputum production. No fever or chills. Denies hemoptysis. No orthopnea or PND. No lower extremity leg swelling. Patient states the wheezing is not relieved with home inhaler. No chest pain, palpitations, abdominal pain, changes in urinary or bowel habits. In the emergency department, patient wheezing despite multiple DuoNeb treatments. Review of Systems Constitutional: Constitutional: Reports fatigue and Reports malaise Cardiovascular: Cardiovascular: Reports dyspnea on exertion Respiratory: Respiratory: Reports cough, Reports dyspnea on exertion and Reports wheezing Gastrointestinal: Gastrointestinal: Reports no additional gastrointestinal complaints Genitourinary: Genitourinary: Reports no additional female genitourinary complaints Endocrine: Endocrine: Reports fatigue Allergic/Immunologic: Allergic/Immunologic: Reports wheezing [facility] Medical History History of adenomatous polyp of colon Dyslipidemia Hiatal hernia Pulmonary nodule Osteopenia of left femoral neck Impaired fasting glucose Family History Father Anemia Mother COPD (chronic obstructive pulmonary disease) Son No problems noted. Daughter No problems noted. 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 Cognitive needs: No Hearing needs: No Vision needs: Yes Meds Allergies Allergy/AdvReac Type Severity Reaction Status Date / Time codeine Allergy Severe Vomiting Verified 05/24/25 12:39 Active Medications: Current Medications Acetaminophen (Acetaminophen 325 Mg Tablet) 650 mg PO Q6H PRN PRN Reason: Pain, Mild 1-3,fever,headache Albuterol/Ipratropium (Albuterol/Iprat 2.5/0.5mg 3 Ml Ampul.Neb) 3 ml INHALE Q4H ROSARIO Albuterol/Ipratropium (Albuterol/Iprat 2.5/0.5mg 3 Ml Ampul.Neb) 3 ml INHALE Q3H PRN PRN Reason: sob Calcium Carbonate (Calcium Carbonate 750 Mg Tab.Chew) 750 mg PO Q4H PRN PRN Reason: Heartburn Enoxaparin Sodium (Enoxaparin Sodium 40 Mg/0.4 Ml Syringe) 40 mg SUBCUT Q24H ROSARIO Guaifenesin (Guaifenesin 200 Mg/10 Ml 10 Ml Liquid) 10 ml PO Q6H ROSARIO Magnesium Hydroxide (Milk Of Magnesia 30 Ml Oral.Susp) 30 ml PO DAILY PRN PRN Reason: Constipation Melatonin (Melatonin 3 Mg Tablet) 6 mg PO BEDTIME PRN PRN Reason: Insomnia Methylprednisolone Sodium Succinate (Methylprednisolone Sod Succ 40 Mg/Ml Vial) 40 mg IVPUSH BID ROSARIO Sodium Chloride (0.9 % Sodium Chloride Flush 3 Ml Syringe) 3 ml IVFLUSH QSHIFT ROSARIO Home Medications ?Medication ?Instructions ?Recorded ?Confirmed ?Last Taken ?Type cholecalciferol (vitamin D3) 50 50 mcg PO BEDTIME 11/13/20 10/07/23 05/28/23 History mcg (2,000 unit) capsule calcium carbonate (Calcium 500) 500 mg PO BEDTIME 01/20/21 10/07/23 05/28/23 History multivitamin 1 tab PO BEDTIME 01/20/21 10/07/23 05/28/23 History Physical Exam Vital Signs and Narrative: Vital Signs: Last Vital Signs Temp 98.6 F 05/24/25 12:38 Pulse 98 05/24/25 18:16 Resp 20 05/24/25 18:16 BP 167/92 H 05/24/25 17:14 Pulse Ox 95 05/24/25 17:14 O2 Del Method Room Air 05/24/25 17:14 BMI result Body Mass Index 26.5 Const: Other: Middle-aged female lying in bed in mild distress Neck supple, no JVD Regular rate and rhythm, S1-S2 heard Bilateral expiratory wheezing present Abdomen soft nontender, no guarding, no rigidity Patient is awake, alert and oriented to self, place, time and person ; no focal motor deficit Psych: Normal mood No pedal edema Results Labs 05/24/25 13:18 05/24/25 13:18 Labs: Laboratory Results - last 24 hr 05/24/25 13:18 MCV 96.4 MCH 30.3 MCHC 31.4 RDW 12.6 Plt Count 395 D MPV 9.5 Immature Gran % (Auto) 0.2 Neut % (Auto) 81.0 H Lymph % (Auto) 10.4 L [place] % (Auto) 6.6 Eos % (Auto) 1.1 Baso % (Auto) 0.7 Lymph # (Auto) 0.9 L [place] # (Auto) 0.6 Eos # (Auto) 0.1 Baso # (Auto) 0.1 Abs Immat Gran (auto) 0.02 Absolute Neuts (auto) 7.3 Absolute Nucleated RBC 0.000 Nucleated RBC % (auto) 0.0 PT 13.2 H INR 1.2 H Anion Gap 13 Estim Creat Clear Calc 58.0 Estimated GFR > 60 Random Glucose 137 H Calcium 9.7 Total Bilirubin 0.3 AST 19 ALT 13 Alkaline Phosphatase 97 B-Natriuretic Peptide 136 H Total Protein 7.4 Albumin 4.0 Influenza Type A (PCR) NEGATIVE Influenza Type B (PCR) NEGATIVE RSV RNA Qual (PCR) NEGATIVE SARS-CoV-2 RNA (RT-PCR) NEGATIVE Imaging Radiologist's Impressions: Impressions Chest X-Ray 05/24/25 12:50 IMPRESSION: COPD. No active superimposed disease. Electronically signed by: Richard Ramon MD 05/24/2025 01:21 PM EDT RP Assessment and Plan (1) COPD exacerbation: Status: Acute Plan This has a 74-year-old female with pertinent history of COPD not on home oxygen, history of bronchiectasis, mixed hyperlipidemia who presents to the emergency department for evaluation of dyspnea and cough. #. Acute exacerbation of COPD: Will admit patient with scheduled and p.r.n. DuoNebs. Initiating systemic steroids. Continue home inhaler. Also has history of bronchiectasis with Pseudomonas in the sputum previously, initiating empiric levofloxacin. #. Mixed hyperlipidemia: On statin Med rec pending DVT prophylaxis: Lovenox Full code Quality Stroke Does the patient have a stroke diagnosis?: No VTE Prior VTE?: No VTE Risk Level:: Medical - moderate - high VTE Device Contraindication: Treatment Not Indicated VTE Drug Contraindication: N/A - Med Ordered
[2025-05-24] MEDS: guaiFENesin 200 MG/10 ML 10 ML LIQUID PO (19:58)
--- NOTE | 2025-05-24 20:04 | PHA.MEDREC ---
Addendum entered by Doris Escobar RPh 05/24/25 20:07: janes reviewed Original Note: Pharmacy Consult ? Medication Reconciliation Pharmacy has completed the medication reconciliation. Patient was able to confirm all her medications. Patient confirmed Rosuvastatin 5 mg every Wednesday, Wednesday, and Wednesday.
[2025-05-24 20:37] VITALS: BP 162/90; PULSE 103; RESP 16; TEMP 36.7; O2SAT 91
[2025-05-24] MEDS: Albuterol/Iprat 2.5/0.5MG 3 ML AMPUL.NEB INHALE (20:37)
[2025-05-24 20:38] VITALS: PULSE 94; RESP 20; O2SAT 89
[2025-05-24 21:32] VITALS: BP 151/68; PULSE 108; RESP 22; TEMP 36.6; O2SAT 89
--- NOTE | 2025-05-24 21:37 | PC.NURSE ---
Patient O2 was 87-89 RA placed on 2L O2 94%
[2025-05-25] VITALS (12 sets, daily range): BP systolic 123–148; BP diastolic 59–67; PULSE 80–116; RESP 14–23; TEMP 36–36.9; O2SAT 92–96; BMI 25.5
[2025-05-25] MEDS: Albuterol/Iprat 2.5/0.5MG 3 ML AMPUL.NEB INHALE ×6 (00:18→22:54)
[2025-05-25] MEDS: guaiFENesin 200 MG/10 ML 10 ML LIQUID PO ×4 (00:48→19:18)
[2025-05-25] MEDS: 0.9 % Sodium Chloride Flush 3 ML SYRINGE IVFLUSH ×4 (00:49→22:35)
--- NOTE | 2025-05-25 07:31 | PC.NURSE ---
Addendum entered by Nathen Joseph RN 05/25/25 07:58: Pt is speaking in full clear sentences and denies sob while at rest Original Note: pt is awake and alert and eating breakfast, she is in no distress and offers no complaint. report was taken from previous rn, it was understood that patient was being admitted to [facility] for copd exacerbation
[2025-05-25] MEDS: Fluticasone/Vilanterol 200/25 BLST.W.DEV 1 PUFF INHALE (08:57)
--- NOTE | 2025-05-25 12:16 | PC.NURSE ---
88% SPO2 on RA during trial ambulation.
--- NOTE | 2025-05-25 12:21 | MHC.CM.PN ---
CM met with Patient at bedside, in the ED, and addressed IMM with her; original was given to Patient and a copy will be placed on the chart. Patient lives alone in a condo and she required no services nor DME LABORATORY ASST. Home/self care is the goal and CM has initiated and will follow for dc planning. PCP is Dr. Kylie Lira and a Neighbor will transport to home at time of dc. HCP is Son/Radames.
--- NOTE | 2025-05-25 17:40 | HO.PM.IMPN ---
Subjective Subjective Date of Service: 05/25/25 Interval History: copd execerebation Review of Systems sob seems very little improvemnt Short of breath with minimal exertion No fever Review of Systems: Yes all other systems are reviewed and are negative Physical Exam Exam: Exam: Appearance: Alert.? Oriented X3.? cvs: [id number], [id number] . res: Air entry diminished, has bilateral wheezing expiratory abd: no rebound or guarding ,nt, bs present. ext pulses present , no cyanosis . neuro: axo3 , nonfocal. Vital Signs: Vital Signs: Last Vital Signs Temp 98.4 F 05/25/25 08:09 Pulse 111 H 05/25/25 15:37 Resp 21 H 05/25/25 15:37 BP 139/67 05/25/25 13:28 Pulse Ox 95 05/25/25 13:28 O2 Del Method Nasal Cannula 05/25/25 13:28 O2 Flow Rate 2 05/25/25 13:28 BMI result Body Mass Index 26.5 Objective Data Active Medications Acetaminophen (Acetaminophen 325 Mg Tablet) 650 mg PO Q6H PRN PRN Reason: Pain, Mild 1-3,fever,headache Last Admin: 05/25/25 09:23 Dose: 650 mg Documented By: GISELLA Albuterol/Ipratropium (Albuterol/Iprat 2.5/0.5mg 3 Ml Ampul.Neb) 3 ml INHALE Q4H [facility] Last Admin: 05/25/25 15:36 Dose: 3 ml Documented By: SAMUEL Albuterol/Ipratropium (Albuterol/Iprat 2.5/0.5mg 3 Ml Ampul.Neb) 3 ml INHALE Q3H PRN PRN Reason: sob Atorvastatin Calcium (Atorvastatin Calcium 20 Mg Tablet) 20 mg PO MOWEFR [facility] Last Admin: 05/25/25 09:24 Dose: 20 mg Documented By: GISELLA Calcium Carbonate (Calcium Carbonate 750 Mg Tab.Chew) 750 mg PO Q4H PRN PRN Reason: Heartburn Enoxaparin Sodium (Enoxaparin Sodium 40 Mg/0.4 Ml Syringe) 40 mg SUBCUT Q24H [facility] Last Admin: 05/24/25 19:58 Dose: 40 mg Documented By: PREETHI Fluticasone/Vilanterol (Fluticasone/Vilanterol 200/25 Blst.W.Dev) 1 puff INHALE RDAILY [facility] Last Admin: 05/25/25 08:57 Dose: 1 puff Documented By: GISELLA Guaifenesin (Guaifenesin 200 Mg/10 Ml 10 Ml Liquid) 10 ml PO Q6H [facility] Last Admin: 05/25/25 13:28 Dose: 10 ml Documented By: CELY Levofloxacin (Levofloxacin 750 Mg Tablet) 750 mg PO Q24H [facility] Last Admin: 05/24/25 19:58 Dose: 750 mg Documented By: PREETHI Magnesium Hydroxide (Milk Of Magnesia 30 Ml Oral.Susp) 30 ml PO DAILY PRN PRN Reason: Constipation Melatonin (Melatonin 3 Mg Tablet) 6 mg PO BEDTIME PRN PRN Reason: Insomnia Methylprednisolone Sodium Succinate (Methylprednisolone Sod Succ 40 Mg/Ml Vial) 40 mg IVPUSH BID [facility] Last Admin: 05/25/25 09:01 Dose: 40 mg Documented By: GISELLA Multivitamins/Vitamin C (Multivitamin Tablet) 1 tab PO BEDTIME [facility] Last Admin: 05/24/25 21:36 Dose: 1 tab Documented By: VIRIDIANA Sodium Chloride (0.9 % Sodium Chloride Flush 3 Ml Syringe) 3 ml IVFLUSH QSHIFT [facility] Last Admin: 05/25/25 17:12 Dose: 3 ml Documented By: CELY Vitamin D (Cholecalciferol (Vitamin D3) 25 Mcg Tablet) 50 mcg PO BEDTIME [facility] Last Admin: 05/24/25 21:36 Dose: 50 mcg Documented By: VIRIDIANA Labs 05/24/25 13:18 05/24/25 13:18 Assessment and Plan (1) COPD exacerbation: Status: Acute Plan 74-year-old female with pertinent history of COPD not on home oxygen, history of bronchiectasis, mixed hyperlipidemia who presents to the emergency department for evaluation of dyspnea and cough. Acute exacerbation of COPD: Will admit patient with scheduled and p.r.n. DuoNebs. Initiating systemic steroids. Continue home inhaler. Also has history of bronchiectasis with Pseudomonas in the sputum previously, initiating empiric levofloxacin. Mixed hyperlipidemia: On statin DVT prophylaxis: Lovenox Ongoing need of stay: COPD exacerbation-respiratory status not improved yet, nebs, steroids, close monitoring of respiratory status. Quality Stroke Does the patient have a stroke diagnosis?: No VTE Prior VTE?: No VTE Risk Level:: Medical - moderate - high VTE Device Contraindication: Treatment Not Indicated VTE Drug Contraindication: N/A - Med Ordered
--- NOTE | 2025-05-25 19:56 | PC.NURSE ---
ambulated indpeendtly to bathroom. increased SOB on exertion with desat to 87% on 3L NC. now back in bed, SpO2 95% on 2L NC
[2025-05-26] VITALS (12 sets, daily range): BP systolic 125–156; BP diastolic 60–79; PULSE 63–111; RESP 16–20; TEMP 36–37.1; O2SAT 90–95
[2025-05-26] MEDS: guaiFENesin 200 MG/10 ML 10 ML LIQUID PO ×4 (01:08→18:05)
[2025-05-26] MEDS: Albuterol/Iprat 2.5/0.5MG 3 ML AMPUL.NEB INHALE ×2 (03:13→07:20)
--- NOTE | 2025-05-26 06:04 | PC.NURSE ---
Pt arrived at 2143 to room 362 on a bed, alert and oriented, tolerating O2 at 2L/min vIa NC, still with SOB on exertion, ST on tele on low to high teens with cont Vent Bigeminy, denies any CP, callbell instructed, bed alarm on.
[2025-05-26] MEDS: Fluticasone/Vilanterol 200/25 BLST.W.DEV 1 PUFF INHALE (07:20)
[2025-05-26] MEDS: 0.9 % Sodium Chloride Flush 3 ML SYRINGE IVFLUSH ×3 (07:59→19:58)
--- NOTE | 2025-05-26 08:20 | PC.NURSE ---
patient is ST wit lots PVC and Trigeminy ,Dr. Alejandre made aware,patient has no complaints
--- NOTE | 2025-05-26 11:12 | HO.PM.IMPN ---
Subjective Subjective Date of Service: 05/26/25 Interval History: copd excerebation Review of Systems sob seem similar with minimal execersion Review of Systems: Yes all other systems are reviewed and are negative Physical Exam Exam: Exam: Appearance: Alert.? Oriented X3.? cvs: [id number], [id number] . res: Air entry diminished, has bilateral wheezing expiratory abd: no rebound or guarding ,nt, bs present. ext pulses present , no cyanosis . neuro: axo3 , nonfocal. Vital Signs: Vital Signs: Last Vital Signs Temp 97.8 F 05/26/25 07:41 Pulse 87 05/26/25 07:41 Resp 16 05/26/25 07:41 BP 125/79 05/26/25 07:41 Pulse Ox 95 05/26/25 07:41 O2 Del Method Nasal Cannula 05/26/25 07:41 O2 Flow Rate 2 05/26/25 07:41 BMI result Body Mass Index 25.5 Objective Data Active Medications Acetaminophen (Acetaminophen 325 Mg Tablet) 650 mg PO Q6H PRN PRN Reason: Pain, Mild 1-3,fever,headache Last Admin: 05/25/25 19:18 Dose: 650 mg Documented By: ANGELY Albuterol/Ipratropium (Albuterol/Iprat 2.5/0.5mg 3 Ml Ampul.Neb) 3 ml INHALE Q3H PRN PRN Reason: sob Atorvastatin Calcium (Atorvastatin Calcium 20 Mg Tablet) 20 mg PO MOWEFR [facility] Last Admin: 05/25/25 09:24 Dose: 20 mg Documented By: GISELLA Calcium Carbonate (Calcium Carbonate 750 Mg Tab.Chew) 750 mg PO Q4H PRN PRN Reason: Heartburn Enoxaparin Sodium (Enoxaparin Sodium 40 Mg/0.4 Ml Syringe) 40 mg SUBCUT Q24H [facility] Last Admin: 05/25/25 19:18 Dose: 40 mg Documented By: ANGELY Fluticasone/Vilanterol (Fluticasone/Vilanterol 200/25 Blst.W.Dev) 1 puff INHALE RDAILY [facility] Last Admin: 05/26/25 07:20 Dose: 1 puff Documented By: EVIE Guaifenesin (Guaifenesin 200 Mg/10 Ml 10 Ml Liquid) 10 ml PO Q6H [facility] Last Admin: 05/26/25 06:25 Dose: 10 ml Documented By: HE Levalbuterol HCl (Levalbuterol Hcl 1.25 Mg/3 Ml Vial.Neb) 1.25 mg INHALE RTID [facility] Levofloxacin (Levofloxacin 750 Mg Tablet) 750 mg PO Q24H [facility] Last Admin: 05/25/25 19:19 Dose: 750 mg Documented By: PRECIOUSLAMMarylou Magnesium Hydroxide (Milk Of Magnesia 30 Ml Oral.Susp) 30 ml PO DAILY PRN PRN Reason: Constipation Melatonin (Melatonin 3 Mg Tablet) 6 mg PO BEDTIME PRN PRN Reason: Insomnia Methylprednisolone Sodium Succinate (Methylprednisolone Sod Succ 40 Mg/Ml Vial) 40 mg IVPUSH BID [facility] Last Admin: 05/26/25 07:59 Dose: 40 mg Documented By: JAISON Multivitamins/Vitamin C (Multivitamin Tablet) 1 tab PO BEDTIME [facility] Last Admin: 05/25/25 22:34 Dose: 1 tab Documented By: HE Comments: late given as pt was still in the ED Sodium Chloride (0.9 % Sodium Chloride Flush 3 Ml Syringe) 3 ml IVFLUSH QSHIFT [facility] Last Admin: 05/26/25 07:59 Dose: 3 ml Documented By: JAISON Vitamin D (Cholecalciferol (Vitamin D3) 25 Mcg Tablet) 50 mcg PO BEDTIME [facility] Last Admin: 05/25/25 22:33 Dose: 50 mcg Documented By: HE Comments: late given as pt was still in the ED Labs 05/24/25 13:18 05/24/25 13:18 Assessment and Plan (1) COPD exacerbation: Status: Acute Plan 74-year-old female with pertinent history of COPD not on home oxygen, history of bronchiectasis, mixed hyperlipidemia who presents to the emergency department for evaluation of dyspnea and cough. Acute exacerbation of COPD: change nebs to xopenex (mild tachycardia ,pvc's(brief episode). continue systemic steroids/history of bronchiectasis with Pseudomonas in the sputum previously, initiating empiric levofloxacin. Mixed hyperlipidemia: On statin DVT prophylaxis: Lovenox Ongoing need of stay: COPD exacerbation-respiratory status not improved yet, nebs, steroids, close monitoring of respiratory status. Quality Stroke Does the patient have a stroke diagnosis?: No VTE Prior VTE?: No VTE Risk Level:: Medical - moderate - high VTE Device Contraindication: Treatment Not Indicated VTE Drug Contraindication: N/A - Med Ordered
[2025-05-27] VITALS (10 sets, daily range): BP systolic 119–158; BP diastolic 58–77; PULSE 64–104; RESP 16–20; TEMP 36.3–37; O2SAT 91–95
--- NOTE | 2025-05-27 | ECG_ITS ---
Test Reason : tachycardia Blood Pressure : */* mmHG Vent. Rate : 100 BPM Atrial Rate : 100 BPM P-R Int : 144 ms QRS Dur : 68 ms QT Int : 354 ms P-R-T Axes : * -29 142 degrees QTcB Int : 456 ms Sinus rhythm with frequent Premature ventricular complexes Low voltage QRS Possible Inferior infarct (cited on or before 24-May-2025) Cannot rule out Anterior infarct (cited on or before 24-May-2025) Abnormal ECG When compared with ECG of 24-May-2025 13:03, Vent. rate has decreased by 56 bpm Referred By: Perri Caputo Electronically Signed By: BERNARD SIDDIQUI
[2025-05-27] MEDS: guaiFENesin 200 MG/10 ML 10 ML LIQUID PO ×4 (01:16→18:11)
[2025-05-27] MEDS: Magnesium Sulfate/H2O 2 GM/50 ML PIGGYBACK IV (05:20)
--- NOTE | 2025-05-27 05:51 | PC.NURSE ---
Pt alert and oriented, verbalized feeling better than when she came to the ED, on tele monitor and cont to be on Bi/Trigeminy and freq ST, pt denies any CP, still with some SOB on exertion, tolerating RA at 91-93%, discussed with Dr. Caputo, Mag sulfate 2gms ordered, suddenly pt went to ST on the 130s-140s, rest of vitals WNL EKG done and tracing forwarded to Dr. Caputo. pt remained asymptomatic.
[2025-05-27] MEDS: Fluticasone/Vilanterol 200/25 BLST.W.DEV 1 PUFF INHALE (07:32)
--- NOTE | 2025-05-27 08:43 | PC.NURSE ---
Addendum entered by Hilary Zuniga RN 05/27/25 11:14: no need to do EKG per Arleth dillon Original Note: patient had EKG done this am at 0515 ,questioned need for EKG now with Dr. Alejandre
[2025-05-27] MEDS: 0.9 % Sodium Chloride Flush 3 ML SYRINGE IVFLUSH ×2 (09:05→14:11)
[2025-05-27 09:19] LABS: Anion Gap 16 (12-20); Blood Urea Nitrogen 23 mg/dL (9-16); Calcium 9.6 mg/dL (8.4-10.2); Carbon Dioxide 28 mmol/L (22-29); Chloride 102 mmol/L (96-108); Creatinine Clr Calc Pharmacy 48.3; Estimated Glomerular Filt Rate > 60; Magnesium 3.0 mg/dL (1.6-2.6); Potassium 4.2 mmol/L (3.3-5.1); Sodium 142 mmol/L (135-145)
--- NOTE | 2025-05-27 09:53 | P.PNIM_ITS ---
Subjective Subjective Date of Service: 05/27/25 Interval History: copd excerebation Review of Systems sob improving few pvc's Review of Systems: Yes all other systems are reviewed and are negative Physical Exam 2 Vital Signs: Vital Signs: Last Vital Signs Temp 97.4 F 05/27/25 07:35 Pulse 87 05/27/25 07:36 Resp 20 05/27/25 07:36 BP 140/74 H 05/27/25 07:35 Pulse Ox 91 L 05/27/25 07:35 O2 Del Method Room Air 05/27/25 07:35 O2 Flow Rate 2 05/26/25 07:41 BMI result Body Mass Index 25.5 Objective Data Active Medications Acetaminophen (Acetaminophen 325 Mg Tablet) 650 mg PO Q6H PRN PRN Reason: Pain, Mild 1-3,fever,headache Last Admin: 05/26/25 15:56 Dose: 650 mg Documented By: JAISON Albuterol/Ipratropium (Albuterol/Iprat 2.5/0.5mg 3 Ml Ampul.Neb) 3 ml INHALE Q3H PRN PRN Reason: sob Atorvastatin Calcium (Atorvastatin Calcium 20 Mg Tablet) 20 mg PO MOWEFR [facility] Last Admin: 05/25/25 09:24 Dose: 20 mg Documented By: GISELLA Calcium Carbonate (Calcium Carbonate 750 Mg Tab.Chew) 750 mg PO Q4H PRN PRN Reason: Heartburn Enoxaparin Sodium (Enoxaparin Sodium 40 Mg/0.4 Ml Syringe) 40 mg SUBCUT Q24H [facility] Last Admin: 05/26/25 18:05 Dose: 40 mg Documented By: ROBERT Fluticasone/Vilanterol (Fluticasone/Vilanterol 200/25 Blst.W.Dev) 1 puff INHALE RDAILY [facility] Last Admin: 05/27/25 07:32 Dose: 1 puff Documented By: EVIE Guaifenesin (Guaifenesin 200 Mg/10 Ml 10 Ml Liquid) 10 ml PO Q6H [facility] Last Admin: 05/27/25 06:57 Dose: 10 ml Documented By: CASTILArianna Levalbuterol HCl (Levalbuterol Hcl 1.25 Mg/3 Ml Vial.Neb) 1.25 mg INHALE RTID [facility] Last Admin: 05/27/25 07:32 Dose: 1.25 mg Documented By: EVIE Levofloxacin (Levofloxacin 750 Mg Tablet) 750 mg PO Q24H [facility] Last Admin: 05/26/25 19:58 Dose: 750 mg Documented By: HE Magnesium Hydroxide (Milk Of Magnesia 30 Ml Oral.Susp) 30 ml PO DAILY PRN PRN Reason: Constipation Melatonin (Melatonin 3 Mg Tablet) 6 mg PO BEDTIME PRN PRN Reason: Insomnia Methylprednisolone Sodium Succinate (Methylprednisolone Sod Succ 40 Mg/Ml Vial) 40 mg IVPUSH DAILY [facility] Last Admin: 05/27/25 09:03 Dose: 40 mg Documented By: JAISON Multivitamins/Vitamin C (Multivitamin Tablet) 1 tab PO BEDTIME [facility] Last Admin: 05/26/25 19:58 Dose: 1 tab Documented By: HE Sodium Chloride (0.9 % Sodium Chloride Flush 3 Ml Syringe) 3 ml IVFLUSH QSHIFT [facility] Last Admin: 05/27/25 09:05 Dose: 3 ml Documented By: JAISON Vitamin D (Cholecalciferol (Vitamin D3) 25 Mcg Tablet) 50 mcg PO BEDTIME [facility] Last Admin: 05/26/25 19:58 Dose: 50 mcg Documented By: HE Labs 05/24/25 13:18 05/27/25 08:49 Labs: Laboratory Results - last 24 hr 05/27/25 08:49 Hold Purple Top SEE NOTE Anion Gap 16 Estim Creat Clear Calc 48.3 Estimated GFR > 60 Random Glucose 176 H Calcium 9.6 Magnesium 3.0 H Assessment and Plan (1) COPD exacerbation: Status: Acute Plan 74-year-old female with pertinent history of COPD not on home oxygen, history of bronchiectasis, mixed hyperlipidemia who presents to the emergency department for evaluation of dyspnea and cough. Acute exacerbation of COPD: change nebs to xopenex (mild tachycardia ,pvc's(brief episode). continue systemic steroids/history of bronchiectasis with Pseudomonas in the sputum previously, initiating empiric levofloxacin. patient has bigemny /trigemny pvc's: Asymptomatic, electrolytes fine, discussed with the Cardiology-with add echo. Monitor on tele. Mixed hyperlipidemia: On statin DVT prophylaxis: Lovenox Ongoing need of stay: COPD exacerbation-respiratory status not improved yet, nebs, steroids, close monitoring of respiratory status.cardiac workup gor pvc's. Quality Stroke Does the patient have a stroke diagnosis?: No VTE Prior VTE?: No VTE Risk Level:: Medical - moderate - high VTE Device Contraindication: Treatment Not Indicated VTE Drug Contraindication: N/A - Med Ordered
[2025-05-28] VITALS (11 sets, daily range): BP systolic 128–146; BP diastolic 65–75; PULSE 62–115; RESP 16–20; TEMP 35.9–36.8; O2SAT 90–98
[2025-05-28] MEDS: guaiFENesin 200 MG/10 ML 10 ML LIQUID PO ×4 (01:44→18:45)
[2025-05-28] MEDS: 0.9 % Sodium Chloride Flush 3 ML SYRINGE IVFLUSH ×3 (01:46→14:39)
--- NOTE | 2025-05-28 07:00 | CA_ITS ---
Transthoracic Echocardiogram Patient (Last, First, Middle): Kat Trinh M Gender: Female Date of : 1950 Age: 74 Procedure Date: 05/28/2025 Procedure Type: Transthoracic Echocardiogram Location: S3E Height: 157. cm Weight: 63.05 kg BSA: 1.63 m2 Heart Rate: 94 bpm BP: 131 / 70 mmHg [employer]: MIQUEL Referring MD: Dwayne Alejandre MD Symptoms: pvc Study Quality: Adequate ECG Rhythm: Frequent ventricular premature beats Conclusions: - Normal left ventricular cavity size. There is normal left ventricular wall thickness. The left ventricular systolic function is hyperdynamic. The visually estimated ejection fraction is >70%. - Elevated filling pressures. - Normal right ventricular cavity size and systolic function. Findings Left Ventricle Normal left ventricular cavity size. There is normal left ventricular wall thickness. The left ventricular systolic function is hyperdynamic. The visually estimated ejection fraction is >70%. There is no evidence of regional wall motion abnormalities. Abnormal diastolic function is noted. Spectral Doppler is indicative of an impaired relaxation filling pattern. Elevated filling pressures. Right Ventricle Normal right ventricular cavity size and systolic function. Atria The left atrium is normal in size. The right atrium was not well visualized. Aortic Valve Normal aortic valve structure and function. There is no aortic valve stenosis. There is no aortic valve regurgitation. Mitral Valve The mitral valve appears normal. There is mild mitral annular calcification. There is no mitral valve regurgitation. There is no mitral valve stenosis. Pulmonic Valve The pulmonic valve is likely normal. Tricuspid Valve Normal tricuspid valve structure. There is trace tricuspid valve regurgitation. Normal right atrial pressure. There is no evidence of pulmonary hypertension. Great Vessels All visible segments of the aorta are normal in size. Venous The inferior vena cava is normal in size and collapses greater than 50% with inspiration. Pericardium/Pleural There is no evidence of pericardial effusion. Prior Study Comparison No prior study available for comparison. Measurements 2D Linear Measurements IVSd: 0.66 0.6-0.9/0.6-1.0 cm LVIDd: 4.40 3.9-5.3/4.2-5.9 cm LVIDd Index: 2.70 2.4-3.2/2.2-3.1 cm/m2 LVIDs: 2.48 2.0-3.6 cm LVPWd: 0.90 0.7-1.1 cm LA Diam: 3.40 2.7-3.8/3.0-4.0 cm LAIDs Index: 2.09 1.5-2.3 cm/m2 LV Mass: 131.59 67-162/88-224 g LV Mass Index: 80.73 43-95/49-115 g/m2 LVOT Diam: 1.80 3.0+(-)1.3 cm 2D Systolic Function EF 4C: 73.70 >55% EF 2C: 68.50 >55% EF BiP: 71.00 >55% Mitral Valve MV Pk E: 1.44 MV PK A: 1.61 MV Decel Time: 267.00 E/A: 0.90 E'Lateral: 5.37 E'Medial: 6.64 E/E' Med: 21.70 E/E' Lat: 26.80 PHT: 78.00 MVA PHT: 2.82 Decel [place]: 5.40 Aortic Valve AoV Pk Ed: 1.78 AoV Mn Ed: 1.29 AoV VTI: 0.33 AoV Pk Grad: 13.00 Aov Mn Grad: 8.00 VAN Cont.VTI: 2.23 LVOT LVOT Pk Ed: 1.41 LVOT Mn Ed: 1.06 LVOT VTI: 0.29 LVOT Pk Grad: 8.00 LVOT Mn Grad: 5.00 LVOT Diam: 1.80 LVOT Area: 2.54 Diastolic Function MV Pk E: 1.44 MV Pk A: 1.61 E/A: 0.90 E'Medial: 6.64 E/E' Med: 21.70 E' Laterial: 5.37 E/E' Lat: 26.80 Right Ventricle TAPSE (mm): 19.30 TVS' Ed: 15.60 Tricuspid Valve TR Pk Ed: 2.12 TR Pk Grad: 18.00 RA Press: 3.00 RVSP: 21.00 Great Vessels Aorta Sinus of Valsalva: 2.90 2.0-3.5 cm Ao Asc: 3.40 2.1-3.4 cm Pulmonary Valve PV Pk Ed: 1.00 Peak PV Grad: 4.00 Updated in Other Vendor System with Status of Final Ry Billingsley MD electronically signed on 05/28/2025 3:13:40 PM with status of Final
[2025-05-28] MEDS: Fluticasone/Vilanterol 200/25 BLST.W.DEV 1 PUFF INHALE (07:57)
--- NOTE | 2025-05-28 11:05 | P.PNIM_ITS ---
Subjective Subjective Date of Service: 05/28/25 Interval History: copd pvc's diarrhae Review of Systems denies abd pain , no fevers sob seems improving Review of Systems: Yes all other systems are reviewed and are negative Physical Exam 2 Exam: Exam: Appearance: Alert.? Oriented X3.? cvs: rrr, [id number] . res: Air entry diminished, has bilateral wheezing expiratory abd: no rebound or guarding ,nt, bs present. ext pulses present , no cyanosis . neuro: axo3 , nonfocal. Vital Signs: Vital Signs: Last Vital Signs Temp 98 F 05/28/25 06:59 Pulse 85 05/28/25 08:00 Resp 16 05/28/25 08:00 BP 131/70 05/28/25 06:59 Pulse Ox 96 05/28/25 06:59 O2 Del Method Nasal Cannula 05/28/25 06:59 O2 Flow Rate 2 05/28/25 06:59 BMI result Body Mass Index 25.5 Objective Data Active Medications Acetaminophen (Acetaminophen 325 Mg Tablet) 650 mg PO Q6H PRN PRN Reason: Pain, Mild 1-3,fever,headache Last Admin: 05/26/25 15:56 Dose: 650 mg Documented By: JAISON Albuterol/Ipratropium (Albuterol/Iprat 2.5/0.5mg 3 Ml Ampul.Neb) 3 ml INHALE Q3H PRN PRN Reason: sob Atorvastatin Calcium (Atorvastatin Calcium 20 Mg Tablet) 20 mg PO MOWEFR [facility] Last Admin: 05/28/25 08:50 Dose: 20 mg Documented By: ELVIS Calcium Carbonate (Calcium Carbonate 750 Mg Tab.Chew) 750 mg PO Q4H PRN PRN Reason: Heartburn Enoxaparin Sodium (Enoxaparin Sodium 40 Mg/0.4 Ml Syringe) 40 mg SUBCUT Q24H [facility] Last Admin: 05/27/25 18:12 Dose: 40 mg Documented By: JAISON Fluticasone/Vilanterol (Fluticasone/Vilanterol 200/25 Blst.W.Dev) 1 puff INHALE RDAILY [facility] Last Admin: 05/28/25 07:57 Dose: 1 puff Documented By: EVIE Guaifenesin (Guaifenesin 200 Mg/10 Ml 10 Ml Liquid) 10 ml PO Q6H [facility] Last Admin: 05/28/25 06:55 Dose: 10 ml Documented By: ADE Levalbuterol HCl (Levalbuterol Hcl 1.25 Mg/3 Ml Vial.Neb) 1.25 mg INHALE RTID [facility] Last Admin: 05/28/25 07:57 Dose: 1.25 mg Documented By: EVIE Levofloxacin (Levofloxacin 750 Mg Tablet) 750 mg PO Q24H [facility] Last Admin: 05/27/25 21:22 Dose: 750 mg Documented By: ADE Magnesium Hydroxide (Milk Of Magnesia 30 Ml Oral.Susp) 30 ml PO DAILY PRN PRN Reason: Constipation Melatonin (Melatonin 3 Mg Tablet) 6 mg PO BEDTIME PRN PRN Reason: Insomnia Methylprednisolone Sodium Succinate (Methylprednisolone Sod Succ 40 Mg/Ml Vial) 40 mg IVPUSH DAILY [facility] Last Admin: 05/28/25 08:51 Dose: 40 mg Documented By: ELVIS Multivitamins/Vitamin C (Multivitamin Tablet) 1 tab PO BEDTIME [facility] Last Admin: 05/27/25 21:22 Dose: 1 tab Documented By: ADE Sodium Chloride (0.9 % Sodium Chloride Flush 3 Ml Syringe) 3 ml IVFLUSH QSHIFT [facility] Last Admin: 05/28/25 08:51 Dose: 3 ml Documented By: ELVIS Vitamin D (Cholecalciferol (Vitamin D3) 25 Mcg Tablet) 50 mcg PO BEDTIME [facility] Last Admin: 05/27/25 21:22 Dose: 50 mcg Documented By: ADE Labs 05/24/25 13:18 05/27/25 08:49 Assessment and Plan (1) COPD exacerbation: Status: Acute Plan 74-year-old female with pertinent history of COPD not on home oxygen, history of bronchiectasis, mixed hyperlipidemia who presents to the emergency department for evaluation of dyspnea and cough. Acute exacerbation of COPD: change nebs to xopenex (mild tachycardia ,pvc's(brief episode). continue systemic steroids/history of bronchiectasis with Pseudomonas in the sputum previously, initiating empiric levofloxacin. Diarrhae : few episode of diarrhae stool studies added patient has bigemny /trigemny pvc's: Asymptomatic, electrolytes fine, discussed with the Cardiology-with add echo. Monitor on tele. Mixed hyperlipidemia: On statin DVT prophylaxis: Lovenox Ongoing need of stay: COPD exacerbation-respiratory status not improved yet, nebs, steroids, close monitoring of respiratory status.cardiac workup gor pvc's. Quality Stroke Does the patient have a stroke diagnosis?: No VTE Prior VTE?: No VTE Risk Level:: Medical - moderate - high VTE Device Contraindication: Treatment Not Indicated VTE Drug Contraindication: N/A - Med Ordered
--- NOTE | 2025-05-28 12:09 | PM.CNCAR ---
History of Present Illness History of Present Illness Date of Service: 05/28/25 Requesting physician: Dwayne Alejandre Chief complaint: Copd Execerbation, PACs and PVCs Narrative: [age] year female with known history of tobacco abuse and COPD presenting with progressive shortness of breath. She has been diagnosed with COPD exacerbation and is currently being treated with nebulizers. She has been noticed to have tachycardia on telemetry with premature atrial complexes and PVCs. She is completely asymptomatic. She has no fevers or chills. She is denying any orthopnea or chest discomfort. [facility] Past Medical History Medical History History of adenomatous polyp of colon Dyslipidemia Hiatal hernia Pulmonary nodule Osteopenia of left femoral neck Impaired fasting glucose Family History Family History Father Anemia Mother COPD (chronic obstructive pulmonary disease) Son No problems noted. Daughter No problems noted. Brother Mental health disorder Surgical History Surgical History Hx of colonoscopy History of surgery History of section Social History Social History Household Members: None Housing: Condominium Do you presently have visiting nurse or other home services: No Alcohol intake: current Alcohol intake frequency: holidays/special occasions only Patient Tobacco Use Status: Former Tobacco user Years Smoked: 35 yrs e-Cigarette/Vaping Use: Never Used Currently Displaying Signs/Symptoms of Drug Intoxication Withdrawal: No Have you been hit, kicked, punched, or otherwise hurt by someone within the past year? 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 Cognitive needs: No Hearing needs: No Vision needs: Yes Meds Allergies Allergy/AdvReac Type Severity Reaction Status Date / Time codeine Allergy Severe Vomiting Verified 05/24/25 12:39 Active Medications: Current Medications Acetaminophen (Acetaminophen 325 Mg Tablet) 650 mg PO Q6H PRN PRN Reason: Pain, Mild 1-3,fever,headache Last Admin: 05/26/25 15:56 Dose: 650 mg Albuterol/Ipratropium (Albuterol/Iprat 2.5/0.5mg 3 Ml Ampul.Neb) 3 ml INHALE Q3H PRN PRN Reason: sob Atorvastatin Calcium (Atorvastatin Calcium 20 Mg Tablet) 20 mg PO MOWEFR [facility] Last Admin: 05/28/25 08:50 Dose: 20 mg Calcium Carbonate (Calcium Carbonate 750 Mg Tab.Chew) 750 mg PO Q4H PRN PRN Reason: Heartburn Enoxaparin Sodium (Enoxaparin Sodium 40 Mg/0.4 Ml Syringe) 40 mg SUBCUT Q24H [facility] Last Admin: 05/27/25 18:12 Dose: 40 mg Fluticasone/Vilanterol (Fluticasone/Vilanterol 200/25 Blst.W.Dev) 1 puff INHALE RDAILY [facility] Last Admin: 05/28/25 07:57 Dose: 1 puff Guaifenesin (Guaifenesin 200 Mg/10 Ml 10 Ml Liquid) 10 ml PO Q6H [facility] Last Admin: 05/28/25 06:55 Dose: 10 ml Levalbuterol HCl (Levalbuterol Hcl 1.25 Mg/3 Ml Vial.Neb) 1.25 mg INHALE RTID [facility] Last Admin: 05/28/25 07:57 Dose: 1.25 mg Levofloxacin (Levofloxacin 750 Mg Tablet) 750 mg PO Q24H [facility] Last Admin: 05/27/25 21:22 Dose: 750 mg Magnesium Hydroxide (Milk Of Magnesia 30 Ml Oral.Susp) 30 ml PO DAILY PRN PRN Reason: Constipation Melatonin (Melatonin 3 Mg Tablet) 6 mg PO BEDTIME PRN PRN Reason: Insomnia Methylprednisolone Sodium Succinate (Methylprednisolone Sod Succ 40 Mg/Ml Vial) 40 mg IVPUSH DAILY [facility] Last Admin: 05/28/25 08:51 Dose: 40 mg Multivitamins/Vitamin C (Multivitamin Tablet) 1 tab PO BEDTIME [facility] Last Admin: 05/27/25 21:22 Dose: 1 tab Sodium Chloride (0.9 % Sodium Chloride Flush 3 Ml Syringe) 3 ml IVFLUSH QSHIFT [facility] Last Admin: 05/28/25 08:51 Dose: 3 ml Vitamin D (Cholecalciferol (Vitamin D3) 25 Mcg Tablet) 50 mcg PO BEDTIME [facility] Last Admin: 05/27/25 21:22 Dose: 50 mcg Home Medications ?Medication ?Instructions ?Recorded ?Confirmed ?Last Taken ?Type cholecalciferol (vitamin D3) 50 50 mcg PO BEDTIME 11/13/20 05/24/25 05/23/25 History mcg (2,000 unit) capsule calcium carbonate (Calcium 500) 500 mg PO BEDTIME 01/20/21 05/24/25 05/23/25 History multivitamin 1 tab PO BEDTIME 01/20/21 05/24/25 05/23/25 History rosuvastatin 5 mg tablet 5 mg PO MOWEFR 05/24/25 05/24/25 05/23/25 History Physical Exam Vital Signs: Vital Signs: Last Vital Signs Temp 98 F 05/28/25 06:59 Pulse 85 05/28/25 08:00 Resp 16 05/28/25 08:00 BP 131/70 05/28/25 06:59 Pulse Ox 96 05/28/25 06:59 O2 Del Method Nasal Cannula 05/28/25 06:59 O2 Flow Rate 2 05/28/25 06:59 BMI result Body Mass Index 25.5 GENERAL APPEARANCE: in no acute distress, pleasant. NECK: no carotid bruit, no jugular venous distention. SKIN: no suspicious lesions, warm and dry. HEART: Soft systolic murmur aortic area, regular rate and rhythm. Tachycardic. LUNGS: clear to auscultation bilaterally. ABDOMEN: soft, nontender. EXTREMITIES: no edema. PERIPHERAL PULSES: equal. NEUROLOGIC: No gross deficits, AAO X 3 Objective Labs and Meds 05/24/25 13:18 05/27/25 08:49 Assessment and Plan (1) PAC (premature atrial contraction): Status: Acute (2) PVC (premature ventricular contraction): Status: Acute Plan Frequent asymptomatic premature atrial complexes and ventricular complexes in a 74-year-old female with COPD exacerbation on treatment currently. Add Toprol-XL 25 mg daily. Electrolytes are stable currently. She is asymptomatic currently. We will review echocardiography. Thank you for allowing me to participate in the care of your patient. Please feel free to contact me if you have any questions. Procedures Date of Service Date of Service: 05/28/25
[2025-05-28] MEDS: Metoprolol Succinate ER 25 MG TAB.ER.24H PO (14:37)
--- NOTE | 2025-05-28 15:18 | MHC.CM.PN ---
EMR reviewed and per MD rounds, pt is not medically cleared for discharge due to management of COPD exacerbation.
[2025-05-29] MEDS: guaiFENesin 200 MG/10 ML 10 ML LIQUID PO ×3 (01:47→11:58)
[2025-05-29] MEDS: 0.9 % Sodium Chloride Flush 3 ML SYRINGE IVFLUSH ×2 (01:48→07:53)
[2025-05-29 03:20] VITALS: BP 139/65; PULSE 81; RESP 18; TEMP 36.4; O2SAT 94
[2025-05-29 06:56] VITALS: BP 153/69; PULSE 88; RESP 16; TEMP 36.6; O2SAT 91
[2025-05-29] MEDS: Metoprolol Succinate ER 25 MG TAB.ER.24H PO (07:49)
[2025-05-29] MEDS: Fluticasone/Vilanterol 200/25 BLST.W.DEV 1 PUFF INHALE (08:34)
[2025-05-29 08:35] VITALS: PULSE 88; RESP 18; O2SAT 97
[2025-05-29 09:02] LABS: CDiff Gene PCR NEGATIVE (Negative)
[2025-05-29 11:12] LABS: E. coli EAEC Not Detected (Not Detect.); E. coli EPEC Not Detected (Not Detect.); E. coli ETEC Not Detected (Not Detect.); E. coli STEC Not Detected (Not Detect.); Shigella sp./EIEC Not Detected (Not Detect.)
[2025-05-29 11:20] VITALS: BP 143/72; PULSE 101; PULSE 48; PULSE 50; PULSE 65; RESP 16; TEMP 36; O2SAT 87; O2SAT 90; O2SAT 94; O2SAT 95
--- NOTE | 2025-05-29 11:47 | P.DS_ITS ---
DS: Providers Provider Date of Service: 05/29/25 Date of admission: 05/25/25 18:17 Date of discharge: 05/29/25 Primary care physician: Kylie Lira MD Consults: 05/28/25 08:19 Consult to Cardiology Routine Consulting Provider: [facility] Reason for consultation: Frequent bigemny / trigemny Has provider been notified: No DS: Diagnosis Discharge Diagnosis (1) COPD exacerbation: Status: Acute DS: Summary Hospital Course Hospital Course: HPI:74-year-old female with pertinent history of COPD not on home oxygen, history of bronchiectasis, mixed hyperlipidemia who presents to the emergency department for evaluation of dyspnea and cough. Patient states she has ongoing progressive symptoms that started about 1 week ago. She has been having dyspnea which is worse with exertion. On the day of presentation, patient could not walk her dog due to dyspnea. Also has associated wheezing and productive cough with yellowish sputum production. No fever or chills. Denies hemoptysis. No orthopnea or PND. No lower extremity leg swelling. Patient states the wheezing is not relieved with home inhaler. No chest pain, palpitations, abdominal pain, changes in urinary or bowel habits. In the emergency department, patient wheezing despite multiple DuoNeb treatments. hospital coursE:COPD exacerbation-given nebs, steroids, antibiotics, seem improved-going home with p.o. steroids, continue COPD meds at home. Consider outpatient follow-up with Pulmonary per PCP. PVCs: Seen by Cardiology, echo was done which seems fine, added metoprolol 25 mg daily. Further management outpatient per PCP consider outpatient cardiology evaluation if needed. Diarrhea-improved, C diff and GI P panel negative. Patient tolerating diet ,asymptomatic. Added limited loperamide supply. plan: Prednisone 40 mg for 4 days. Metoprolol 25 mg daily Loperamide 2 mg p.o. p.r.n.-limited supply. Consider outpatient pulmonary/cardiology follow-up if needed as per PCP. If any worsening of shortness of breath or fever or cough or any new symptoms go to nearest emergency room for further evaluation. Above management discussed with the patient in detail length she understand and in agreement with the above plan, time spent 50 minutes and 50% time spent on counseling. Time Attestation Total time managing care of this patient today: 50 mintues. Discharge Coordination Time (in mins): 50 min Quality: Safe Use of Opioids Does Pt have an Active Cancer Diagnosis on the Problem List?: No Quality: Stroke Does the patient have a stroke diagnosis?: No Physical Exam Exam: Exam: Appearance: Alert.? Oriented X3.? not in distress.? cvs: rrr, [id number] . res: clear to auscultation ,no rhonchii or wheezing abd: no rebound or guarding ,nt, bs present. ext pulses present , no cyanosis. neuro: axo3 , nonfocal. Vital Signs: Vital Signs: Last Vital Signs Temp 96.8 F 05/29/25 11:20 Pulse 65 05/29/25 11:20 Resp 16 05/29/25 11:20 BP 143/72 H 05/29/25 11:20 Pulse Ox 90 L 05/29/25 11:20 O2 Del Method Room Air 05/29/25 11:20 O2 Flow Rate 1 05/29/25 06:56 BMI result Body Mass Index 25.5 DS: Data Data Completed and Pending Labs on day of discharge: Laboratory Results - last 24 hr 05/29/25 07:26 Stl C. cayetanensis PCR Not Detected Stool Rotavirus A PCR Not Detected Stl Adenov F 40/41 PCR Not Detected Stool Astrovirus (PCR) Not Detected Stool Campylobacter PCR Not Detected Stool Cryptosporidium PCR Not Detected Stl Sh Tox Pr E STEC PCR Not Detected Stool E coli O157 PCR Not applicable Stl Enterotoxigenic E PCR Not Detected Stool EPEC (PCR) Not Detected Stool EAEC (PCR) Not Detected Stl E. histolytica PCR Not Detected Stool Giardia Lamblia PCR Not Detected Stl P. shigelloides PCR Not Detected Stool Salmonella PCR Not Detected Stool Sapovirus (PCR) Not Detected Stl Shigella/EIEC PCR Not Detected St Y.enterocolitica PCR Not Detected Stool Vibrio (PCR) Not Detected Stl Vibrio cholerae PCR Not Detected Stl Norovirus GI/GII PCR Not Detected C. difficile Tox B Gene NEGATIVE Imaging Chest x-ray: Radiologist's impression: ITS Impressions Chest X-Ray 05/24/25 12:50 IMPRESSION: COPD. No active superimposed disease. echo: Conclusions: - Normal left ventricular cavity size. There is normal left ventricular wall thickness. The left ventricular systolic function is hyperdynamic. The visually estimated ejection fraction is >70%. - Elevated filling pressures. - Normal right ventricular cavity size and systolic function. Findings Left Ventricle Normal left ventricular cavity size. There is normal left ventricular wall thickness. The left ventricular systolic function is hyperdynamic. The visually estimated ejection fraction is >70%. There is no evidence of regional wall motion abnormalities. Abnormal diastolic function is noted. Spectral Doppler is indicative of an impaired relaxation filling pattern. Elevated filling pressures. Right Ventricle Normal right ventricular cavity size and systolic function. Atria The left atrium is normal in size. The right atrium was not well visualized. Aortic Valve Normal aortic valve structure and function. There is no aortic valve stenosis. There is no aortic valve regurgitation. Mitral Valve The mitral valve appears normal. There is mild mitral annular calcification. There is no mitral valve regurgitation. There is no mitral valve stenosis. Pulmonic Valve The pulmonic valve is likely normal. Tricuspid Valve Normal tricuspid valve structure. There is trace tricuspid valve regurgitation. Normal right atrial pressure. There is no evidence of pulmonary hypertension. Great Vessels All visible segments of the aorta are normal in size. Venous The inferior vena cava is normal in size and collapses greater than 50% with inspiration. Pericardium/Pleural There is no evidence of pericardial effusion. Prior Study Comparison No prior study available for comparison Discharge Plan Discharge Anticipated Discharge Date/Time: 05/29/25 11:39 Patient Disposition: Home, Self-Care Discharge Diagnosis: COPD exacerbation, PVC, diarrhae Referrals: Kylie Lira MD [Primary Care Provider, Internal Medicine] - 1 Week Discharge Medications: New guaifenesin 100 mg/5 mL Liquid 100 mg PO Q6H PRN (Reason: cough) Qty: 118 0RF loperamide 2 mg Capsule 2 mg PO Q6H PRN (Reason: Diarrhea) Qty: 10 0RF metoprolol succinate 25 mg Tablet Extended Release 24 Hr 25 mg PO DAILY Qty: 90 0RF Protocol: Hold for SBP/HR < HOLD for SBP < : 90 HOLD for HR < : 60 prednisone 20 mg tablet 40 mg PO DAILY Qty: 8 0RF Continued albuterol sulfate 90 mcg/actuation HFA aerosol inhaler 2 inh inhalation Q6H PRN (Reason: shortness of breath or wheezing) 30 Days Qty: 18 12RF budesonide-formoterol [Breyna] 160-4.5 mcg/actuation HFA aerosol inhaler 2 puff inhalation BID 30 Days Qty: 10.2 11RF rosuvastatin 5 mg tablet 5 mg PO MOWEFR cholecalciferol (vitamin D3) 50 mcg (2,000 unit) capsule 50 mcg PO BEDTIME calcium carbonate [Calcium 500] 500 mg calcium (1,250 mg) tablet,chewable 500 mg PO BEDTIME multivitamin Tablet 1 tab PO BEDTIME Discharge Orders: Discharge Order (Routine); Ordered 05/29/25 Ordered By: Dwayne Alejandre Diet: Advance to usual diet Activity on Discharge: As tolerated Stand Alone Forms: Patient Portal Discharge page Print Language: Latvian Care Plan Goals: as below. Health Concerns: As above. Plan of Treatment: Prednisone 40 mg for 4 days. Home oxygen evaluation was done patient will need home oxygen. Metoprolol 25 mg daily Loperamide 2 mg p.o. p.r.n.-limited supply. Consider outpatient pulmonary/cardiology follow-up if needed as per PCP. If any worsening of shortness of breath or fever or cough or any new symptoms go to nearest emergency room for further evaluation. Assessment: As above. Patient Instructions: Using Oxygen at Home (DC), COPD (Chronic Obstructive Pulmonary Disease) (DC), Premature Ventricular Contractions (DC) Discharge Date/Time: 05/29/25 14:08
--- NOTE | 2025-05-29 13:31 | MHC.CM.PN ---
Addendum entered by Rebecca Fleming 05/29/25 13:34: FINAL IMM DELIVERED Original Note: DP: PT HAS BEEN MEDICALLY CLEARED FOR DC HOME, NO SERVICES. PT WILL DC WITH NEW HOME 02. PT DECLINES HOME SERVICES SHE IS NOT HOMEBOUND. PT'S FRIEND WILL TRANSPORT.
[2025-05-29 14:02] VITALS: BP 132/64; PULSE 67; RESP 17; TEMP 36.1; O2SAT 90
== END 2025-05-29 14:08 | disposition home or self-care (01) | DRG 192 ==
LOC: HO.ED 17:10 → HO.EDOVER 18:56 → HO.S3 05-25 19:23
PROVIDERS: Registered Nurse Emergency; Admitting Provider Internal Medicine; Emergency Provider Emergency Medicine; PCP Internal Medicine; Visit Provider Internal Medicine
DX: J44.1 Chronic obstructive pulmonary disease with (acute) exacerbation (principal); E78.2 Mixed hyperlipidemia; R19.7 Diarrhea, unspecified; I49.1 Atrial premature depolarization; I49.3 Ventricular premature depolarization; Z20.822 Contact with and (suspected) exposure to COVID-19; Z79.899 Other long term (current) drug therapy
CPT/HCPCS: 36415; 71046; 80048; 80053; 83735; 83880; 84484; 85025; 85610; 87493; 87507; 87637; 93005; 93306; 94640; 99285; J0696; J1650; J2919; J3475; Q9957

== ENCOUNTER → 2025-05-24 12:40 | Outpatient (BNV) | payer MEDICARE, SELFPAY | PROVIDERS: Admitting Provider Internal Medicine; Emergency Provider Emergency Medicine; PCP Internal Medicine; Visit Provider Internal Medicine | DX: I49.3 Ventricular premature depolarization (principal) | CPT/HCPCS: 93010 ==

== ENCOUNTER → 2025-05-24 12:40 | Outpatient (BNV) | payer MEDICARE, SELFPAY | PROVIDERS: PCP Internal Medicine; Visit Provider Radiology Diagnostic Radiology | DX: J44.9 Chronic obstructive pulmonary disease, unspecified (principal) | CPT/HCPCS: 71046 ==

== ENCOUNTER → 2025-05-24 18:43 | Outpatient (BNV) | payer MEDICARE, SELFPAY | PROVIDERS: Admitting Provider Internal Medicine; Emergency Provider Emergency Medicine; PCP Internal Medicine; Visit Provider Student in an Organized Health Care Education/Training Program | DX: J44.1 Chronic obstructive pulmonary disease with (acute) exacerbation (principal) | CPT/HCPCS: 99231 ==

== ENCOUNTER 2025-05-25 18:17 | Outpatient (BNV) | payer MEDICARE, SELFPAY | END 2025-05-28 07:00 | PROVIDERS: Admitting Provider Internal Medicine; Emergency Provider Emergency Medicine; PCP Internal Medicine; Visit Provider Internal Medicine Cardiovascular Disease | DX: I34.81 Nonrheumatic mitral (valve) annulus calcification (principal); I51.89 Other ill-defined heart diseases | CPT/HCPCS: 93306 ==

== ENCOUNTER 2025-05-25 18:17 | Outpatient (BNV) | payer MEDICARE, SELFPAY | END 2025-05-27 05:15 | PROVIDERS: Admitting Provider Internal Medicine; Emergency Provider Emergency Medicine; PCP Internal Medicine; Visit Provider Internal Medicine | DX: I49.3 Ventricular premature depolarization (principal) | CPT/HCPCS: 93010 ==

== ENCOUNTER → 2025-05-25 18:17 | Outpatient (BNV) | payer MEDICARE, SELFPAY | PROVIDERS: Admitting Provider Internal Medicine; Emergency Provider Emergency Medicine; PCP Internal Medicine; Visit Provider Internal Medicine Cardiovascular Disease | DX: I49.1 Atrial premature depolarization (principal); I49.3 Ventricular premature depolarization | CPT/HCPCS: 99222 ==

== ENCOUNTER 2025-06-04 11:15 | Outpatient (AMB) | payer MEDICARE, SELFPAY ==
[2025-06-04 11:33] VITALS: BP 136/70; PULSE 85; RESP 17; TEMP 36.8; O2SAT 95; BMI 26.7
--- NOTE | 2025-06-04 11:33 | MHC.PC.OV ---
Vital Signs 06/04/25 11:33 Height 5 ft 2 in Weight 146 lb BMI 26.7 BP 136/70 Blood Pressure Location Lt brachial Position Sitting Respiration 17 Pulse 85 Pulse Source Pulse Oximeter Temp 98.2 F Temp Source Oral Pulse Oximetry (%) 95 Oxygen Delivery Method Room Air Intake Visit Reasons: 8 mo f/u, + TCM HDF Allergies codeine Allergy (Severe, Verified 06/04/25 11:56) Vomiting Medication List - Last Reconciled 06/04/25 by Kylie Lira MD albuterol sulfate 90 mcg/actuation 2 inhalations inhalation Q6H PRN 30 days budesonide-formoterol 160-4.5 mcg/actuation (Breyna) 2 puffs inhalation BID 30 days calcium carbonate (Calcium 500) 500 mg PO BEDTIME cholecalciferol (vitamin D3) 50 mcg PO BEDTIME guaifenesin 100 mg (5 mL) PO Q6H PRN metoprolol succinate ER 25 mg See Protocol PO DAILY multivitamin 1 tab PO BEDTIME rosuvastatin 5 mg PO MOWEFR Tobacco use date assessed: 06/04/25 Fall risk assessment: No Falls in past year Last assessed Fall Risk: 06/04/25 Dental Screening Dental Screen Date: 10/19/24 HPI 8 mo f/u, + TCM HDF HPI Details 74-year-old lady with history of COPD, history of bronchiectasis, mixed hyperlipidemia, who is here today for a TCM appointment after recent admission at [facility] [id number] for acute exacerbation of COPD. - During the hospitalization, she was treated with antibiotics and steroids, including prednisone, and was discharged with a prescription for Breo Ellipta. - She reports experiencing thrush, likely due to the use of the steroid inhaler, and has been managing it with saltwater rinses and lemongrass tea. - The patient has been advised to continue using the Breo Ellipta until her follow-up with the pulmonary doctor in June. - Cardiovascular: The patient experienced premature ventricular contractions during her hospital stay, likely due to high-dose steroids. - She was started on metoprolol for heart rate control and reports improved sleep since starting the medication, and denies any palpitations, chest pain or shortness of breath. - Pulmonary: The patient has a history of bronchiectasis and a pulmonary nodule, with a follow-up CAT scan scheduled for June 13. - Preventative Care: She has scheduled a mammogram and bone density scan for tomorrow. -at present patient states that she is feeling better TCM TCM Information Date of Discharge 05/29/25 Discharged From [facility] Interactive Contact Date (Reference documentation from this date) 05/30/25 [facility] Medical History (Updated 06/11/25 @ 00:00 by Kylie Lira MD) COPD (chronic obstructive pulmonary disease) COPD exacerbation History of adenomatous polyp of colon Dyslipidemia Hiatal hernia Pulmonary nodule Osteopenia of left femoral neck Impaired fasting glucose Surgical History Hx of colonoscopy History of surgery History of section Family History Father Anemia Mother COPD (chronic obstructive pulmonary disease) Son No problems noted. Daughter No problems noted. 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 Depression Screening Interpretation: Negative Depression Screening Done: Yes Source: Developed by Drs. Brandon Ramirez, Julia Yost, Tyron Guillaume and colleagues, with an educational saida from [employer]. Thrive Questionnaire Date Thrive assessed: 05/25/25 I am a: Patient What is your living situation today?: I have a steady place to live Within the past 12 months, did the food you bought not last and you didn't have the money to get more?: Never true Within the past 12 months, did you worry whether your food would run out before you got money to buy more?: Never true Do you have trouble paying for medicines?: No Do you have trouble getting transportation to medical appointments?: No Do you have trouble paying your heating and electricity bill?: No Do you have trouble taking care of your child, family member or friend?: No Do you have trouble with day-to-day activities such as bathing, preparing meals, shopping, managing finances, etc.?: No Are you currently unemployed and looking for a job?: No Are you interested in more education?: No Please select the resources that you would like help with: None Currently or been in a relationship where the following occur: No concerns reported THRIVE Score: 0 DINESH-7 AMB Questionnaire DINESH-7 Date DINESH - 7 assessed: 10/19/24 Source: Developed by Drs. Brandon Ramirez, Julia Yost, Tyron Guillaume and colleagues, with an educational saida from [employer]. Review of Systems Const Denies fatigue and Denies fever(s) ENT Denies dizziness Card Denies chest pain, Denies leg edema, Denies lightheadedness, Denies palpitations and Denies dyspnea on exertion Resp Denies cough and Denies dyspnea on exertion GI Denies hematochezia and Denies change in stool character Denies urinary frequency, Denies dysuria and Denies urinary urgency Musc Denies abnormal gait, Denies muscle weakness, Denies numbness, Denies radiating pain into limb and Denies tingling Skin/Breast Denies lesions and Denies rash Neuro Denies abnormal gait, Denies dizziness, Denies numbness, Denies Sensory deficit (Neuro) and Denies tingling Psych Reports no additional complaints Endo Denies fatigue and Denies palpitations Mitch/Lymph Denies easy bleeding, Denies easy bruising and Denies lymphadenopathy Aller/Immun Denies seasonal rhinorrhea Physical exam (Primary Care) Vital Signs: Last Vital Signs Temp 98.2 F 06/04/25 11:33 Pulse 85 06/04/25 11:33 Resp 17 06/04/25 11:33 BP 136/70 06/04/25 11:33 Pulse Ox 95 06/04/25 11:33 Oxygen Delivery Method Room Air 06/04/25 11:33 BMI result Body Mass Index 26.7 Tobacco/Smoking Status: Tobacco use Status Tobacco use date assessed 06/04/25 06/04/25 11:48 Patient Tobacco Use Status Former Tobacco user 06/04/25 11:40 e-Cigarette/Vaping Use Never Used 06/04/25 11:40 Depression Screening Interpretation: Negative Thrive Assessment: Date of Thrive Assessment Date Thrive assessed 05/25/25 06/04/25 11:40 Currently or been in a relationship where the following occur: No concerns reported Const General: no acute distress and alert Orientation/consciousness: patient oriented x3 HENWI General nose exam: Normal external nose present Face and sinus: Yes face symmetric Mouth: Normal oral and palatal mucosa present and moist mucous membranes Eyes Conjunctivae: conjunctivae normal Sclerae: sclerae normal EOM: EOMs intact bilaterally Neck Neck: Yes full ROM and Yes no lymphadenopathy Resp Effort & Inspection: normal respiratory effort and able to speak in complete sentences Auscultation: diminished lung sounds Cardio Rate: regular rate Rhythm: regular rhythm Heart sounds: S1 normal heart sound present and S2 normal heart sound present GI Palpation (GI): Soft to palpation, nontender, no guarding and no masses Auscultation: normal bowel sounds General: Yes no CVA tenderness Back/Spine/Pelvis Back: no CVA tenderness Skin General skin exam: no rashes or lesions noted Neuro General: patient oriented x3, gait normal, moves all extremities and no focal motor deficits Cognition (Neuro): normal cognition Gait exam (Neuro): Normal gait present Sensory Exam: No Sensory deficit (Neuro) Extrem General: Yes normal to inspection, Yes full ROM, Yes no pedal edema and Yes normal gait Psych Appearance: grossly normal and well kempt Mental Status: mental status grossly normal Speech and movement: Normal speech and movement present Affect: normal affect Coding Level of Care Code [facility] <= 7 Days Diagnoses Bronchiectasis with acute exacerbation J47.1 Bronchiectasis type: with acute exacerbation Pulmonary nodule R91.1 COPD (chronic obstructive pulmonary disease) J44.9 Assessment & Plan Assessment & Plan (1) Bronchiectasis: Code(s): J47.9 - Bronchiectasis, uncomplicated Category: Medical Qualifiers: Bronchiectasis type: with acute exacerbation Qualified Code(s): J47.1 - Bronchiectasis with (acute) exacerbation (2) Pulmonary nodule: Code(s): R91.1 - Solitary pulmonary nodule Category: Medical (3) COPD (chronic obstructive pulmonary disease): Code(s): J44.9 - Chronic obstructive pulmonary disease, unspecified Category: Medical Plan continue using Breo Ellipta until her follow-up with the pulmonary doctor in June. She is advised to manage thrush with regular oral hygiene practices, including saltwater rinses . The patient should continue metoprolol for heart rate control and monitor for any changes in symptoms. A CT scan is scheduled for June 13 to evaluate the pulmonary nodule, and she should follow up with her pulmonary doctor in June for further management. Preventative care measures include a mammogram and bone density scan scheduled for tomorrow, and a flu shot planned for June. She should also continue to monitor her respiratory symptoms and use albuterol as needed for dyspnea. Patient was informed and verbally consented to the use of an ambient scribe for clinic note documentation during this visit.
--- OUTSIDE RECORDS SUMMARY | 2025-06-04 12:33 | XMS_ITS | Patient Health Record ---
Author Organization [facility] Address [address] [place] [address] Care Team Providers Care Telegraph Service Rater Name Role Phone Soraya PUENTE, Kylie Primary Care Provider Brandon Schultz [phone] Allergies Allergen (clinical drug ingredient) Drug/Non Drug [...] Problem Status W/U Status Risk Notes Problem [id number] Encounter for screening for malignant neoplasm of colon (Z12.11) Active confirmed Problem [id number] History of adenomatous polyp of colon (Z86.010) Active confirmed Problem Encounter for screening for malignant neoplasm of rectum (Z12.12) Active confirmed Problem 55928402 Preprocedural examination (Z01.818) Active confirmed Plan Of Treatment Future Test Test Name Order Date COLONOSCOPY 09/24/2015 Insurance Providers Payer Name Payer Address Payer Phone Subscriber Number Group Number Insured Name Patient Relationship to Insured Coverage Start Date Coverage End Date [facility] [address] [address] [place] [address] [phone] [id number] MARILYN BEARDEN Self - patient is the insured Medical (General) History Medical History History ICD Code Screening colonoscopy 03-12-10--1 small t ubular adenoma removed Denies MS,DM,CVA,renal disease Hyperlipidemia Asthma Surgical History Surgery Date(Month/Year) 1 1984
== END 2025-06-04 12:40 | disposition home or self-care (01) ==
LOC: HO.HMCC 11:16
PROVIDERS: PCP Internal Medicine; Visit Provider Internal Medicine
DX: J47.1 Bronchiectasis with (acute) exacerbation (principal); R91.1 Solitary pulmonary nodule; J44.9 Chronic obstructive pulmonary disease, unspecified

== ENCOUNTER → 2025-06-04 11:15 | Outpatient (BNVA) | payer MEDICARE, SELFPAY | PROVIDERS: PCP Internal Medicine; Visit Provider Internal Medicine | DX: J47.1 Bronchiectasis with (acute) exacerbation (principal); R91.1 Solitary pulmonary nodule | CPT/HCPCS: 99496 ==

== ENCOUNTER 2025-06-05 13:57 | Outpatient (REF) | payer MEDICARE, SELFPAY ==
--- NOTE | ~2025-06-05 | MM_ITS ---
EXAMINATION: MM SCREENING DIGITAL BREAST TOMOSYNTHESIS, BILATERAL CLINICAL INFORMATION: Screening. Asymptomatic. COMPARISON: Mammography: Comparison is made with available priors TECHNIQUE: Digital breast mammography with tomosynthesis is performed in both the craniocaudal and mediolateral oblique views along with computer-aided detection (CAD). FINDINGS: The breasts are heterogeneously dense, which may obscure small masses (ACR BI-RADS breast composition Category c). There are no significant masses, abnormal calcifications, or other abnormalities. MM/MM tomosynthesis screening BI IMPRESSION: No mammographic evidence of malignancy. ASSESSMENT: BI-RADS BI-RADS 1 - Negative RECOMMENDATION: Routine annual mammography screening. 1 year F/U This examination should not preclude the clinical evaluation of a suspicious palpable abnormality. This patient's information was entered into a reminder system with a target due date for their next mammogram. Electronically signed by: Felicia Pérez DO 06/07/2025 08:26 AM EDT
--- OUTSIDE RECORDS SUMMARY | 2025-06-05 15:17 | XMS_ITS | Patient Health Record ---
Author Organization [facility] Address [address] [place] [address] Care Team Providers [facility] Representative Name Role Phone Soraya PUENTE, Kylie Primary Care Provider Brandon Schultz [phone] Allergies Allergen (clinical drug ingredient) Drug/Non Drug [...] Problem Status W/U Status Risk Notes Problem [id number] Encounter for screening for malignant neoplasm of colon (Z12.11) Active confirmed Problem 887053560 History of adenomatous polyp of colon (Z86.010) Active confirmed Problem Encounter for screening for malignant neoplasm of rectum (Z12.12) Active confirmed Problem 98497713 Preprocedural examination (Z01.818) Active confirmed Plan Of Treatment Future Test Test Name Order Date COLONOSCOPY 09/24/2015 Insurance Providers Payer Name Payer Address Payer Phone Subscriber Number Group Number Insured Name Patient Relationship to Insured Coverage Start Date Coverage End Date [facility] [address] [address] [place] [address] [phone] [id number] MARILYN BEARDEN Self - patient is the insured Medical (General) History Medical History History ICD Code Screening colonoscopy 03-12-10--1 small t ubular adenoma removed Denies [place],DM,CVA,renal disease Hyperlipidemia Asthma Surgical History Surgery Date(Month/Year) 1 1984
== END 2025-06-05 13:58 | disposition home or self-care (01) ==
LOC: HO.MAMMO 13:57
PROVIDERS: PCP Internal Medicine; Visit Provider Internal Medicine
DX: Z12.31 Encounter for screening mammogram for malignant neoplasm of breast (principal)
CPT/HCPCS: 77063; 77067

== ENCOUNTER → 2025-06-05 14:15 | Outpatient (BNV) | payer MEDICARE, SELFPAY | PROVIDERS: PCP Internal Medicine; Visit Provider Internal Medicine | DX: Z12.31 Encounter for screening mammogram for malignant neoplasm of breast (principal) | CPT/HCPCS: 77063; 77067 ==

== ENCOUNTER 2025-06-13 14:45 | Outpatient (AMB) | payer MEDICARE, SELFPAY ==
--- NOTE | 2025-06-13 15:19 | A.OFFVIS_ITS ---
Vital Signs 06/13/25 15:20 Height 5 ft 2 in BP 132/70 Blood Pressure Location Lt brachial Position Sitting Pulse 78 Pulse Source Pulse Oximeter Pulse Oximetry (%) 95 Oxygen Delivery Method Room Air Intake Visit Reasons: 6MWT Capsule Filling Machine Operator Required: No Allergies codeine Allergy (Severe, Verified 06/13/25 15:20) Vomiting Medication List - Last Reconciled 06/13/25 by Freda Lott LPN albuterol sulfate 90 mcg/actuation 2 inhalations inhalation Q6H PRN 30 days budesonide-formoterol 160-4.5 mcg/actuation (Breyna) 2 puffs inhalation BID 30 days calcium carbonate (Calcium 500) 500 mg PO BEDTIME cholecalciferol (vitamin D3) 50 mcg PO BEDTIME guaifenesin 100 mg (5 mL) PO Q6H PRN metoprolol succinate ER 25 mg See Protocol PO DAILY multivitamin 1 tab PO BEDTIME rosuvastatin 5 mg PO MOWEFR PFSH Medical History (Updated 06/11/25 @ 00:00 by Kylie Lira MD) COPD (chronic obstructive pulmonary disease) COPD exacerbation History of adenomatous polyp of colon Dyslipidemia Hiatal hernia Pulmonary nodule Osteopenia of left femoral neck Impaired fasting glucose Surgical History Hx of colonoscopy History of surgery History of section Family History Father Anemia Mother COPD (chronic obstructive pulmonary disease) Son No problems noted. Daughter No problems noted. 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 She maintained her SPO2 92-93% with a brief dip to 91%. She did not c/o shortness of breath or difficulty breathing. No supplemental O2 needed. [address]89 - 6 Minute Walk Assessment & Plan Assessment & Plan (1) COPD (chronic obstructive pulmonary disease): Code(s): J44.9 - Chronic obstructive pulmonary disease, unspecified Category: Medical Plan: 6MWT Orders: Orders AMB 6 minute walk Today J44.9 - Chronic obstructive pulmonary disease, unspecified Coding Level of Care Code Established Pt Est Pt Level 1 (42445) Patient Type Established Diagnoses COPD (chronic obstructive pulmonary disease) J44.9 CPT Codes Coding ([id number]) Comment NURSE VISIT ONLY
[2025-06-13 15:20] VITALS: BP 132/70; PULSE 78; O2SAT 95
[2025-06-13 15:22] VITALS: PULSE 78; O2SAT 95
--- OUTSIDE RECORDS SUMMARY | 2025-06-13 16:08 | XMS_ITS | Patient Health Record ---
Author Organization [facility] Address [address] [place] [address] Care Team Providers Care Devulcanizer Operator Name Role Phone Soraya PUENTE, Kylie Primary Care Provider Brandon Schultz [phone] Allergies Allergen (clinical drug ingredient) Drug/Non Drug [...] Problem Status W/U Status Risk Notes Problem [id number] Encounter for screening for malignant neoplasm of colon (Z12.11) Active confirmed Problem 276704250 History of adenomatous polyp of colon (Z86.010) Active confirmed Problem Screening for malignant neoplasm of rectum (964669367) Encounter for screening for malignant neoplasm of rectum (Z12.12) Active confirmed Problem 13626624 Preprocedural examination (Z01.818) Active confirmed Plan Of Treatment Future Test Test Name Order Date COLONOSCOPY 09/24/2015 Insurance Providers Payer Name Payer Address Payer Phone Subscriber Number Group Number Insured Name Patient Relationship to Insured Coverage Start Date Coverage End Date [facility] [address] [place] [address] [phone] [id number] MARILYN BEARDEN Self - patient is the insured Medical (General) History Medical History History ICD Code Screening colonoscopy 5-26-10--1 small t ubular adenoma removed Denies [place],DM,CVA,renal disease Hyperlipidemia Asthma Surgical History Surgery Date(Month/Year) 1 1985
== END 2025-06-13 15:38 | disposition home or self-care (01) ==
LOC: HO.HPS 14:46
PROVIDERS: PCP Internal Medicine; Visit Provider Hospitalist
DX: J44.9 Chronic obstructive pulmonary disease, unspecified (principal)
CPT/HCPCS: 94618

== ENCOUNTER 2025-06-13 15:22 | Outpatient (REF) | payer MEDICARE, SELFPAY ==
--- NOTE | ~2025-06-13 | CT_ITS ---
EXAMINATION: CT CHEST WITHOUT CONTRAST CLINICAL INFORMATION: R91.1 - Solitary pulmonary nodule COMPARISON: May 19, 2024 TECHNIQUE: Multidetector volumetric CT imaging of the chest was done. Axial MIP volume rendering provided. Sagittal and coronal reformatted images were obtained. This CT examination was performed using dose optimization techniques as appropriate, variously including the following: *Automated exposure control *Adjustment of mA and/or kV according to patient size (this includes techniques or standardized protocols for targeted exams where dose is matched to indication/reason for exam; i.e. extremities or head) *Use of iterative reconstruction technique DLP: 113 mGY*cm FINDINGS: LUNGS: Coronal CT #7, image 61/85: There is a solid and groundglass density nodule in the posterior right upper lobe that measures 15 x 26 mm. The solid component measures 8 x 15 mm. The groundglass component contacts the major fissure and posterior pleura resulting in mild thickening of the fissure. On the prior study, there was an ill-defined short septal lines in this region without a nodule. The nodule has irregular spiculated margins. Nodular density in the posterior lateral right apex is unchanged. Coronal 32/85: There is a new 3 x 5 mm solid nodule with faint peripheral groundglass density. Axial CT #4, 132/167: Posterior medial right lower lobe nodule measures 6 x 10 mm. On the prior study, there is an impacted bronchus in this region but no definite nodule. Axial CT #4, 112/167: Posterior lateral left lower lobe solid nodule with spiculated margins is new and measures 10 x 14 mm. Coronal: 66/85: Solid spiculated nodule in the posterolateral left lower lobe measures 5 x 10 mm and is new. Again seen is bronchiectasis with areas of mucus impaction with septal lines and scattered punctate nodular densities most pronounced in the lower lungs. There is linear scarring with traction bronchiectasis in the lingula. MEDIASTINUM: Right lower paratracheal lymph node measures 10 mm short axis. Unchanged. Mildly prominent precarinal lymph node has a fatty hilum. CORONARY ARTERY CALCIFICATION: Present PLEURA: There is no pleural effusion. No pleural mass or thickening. AXILLA: No lymphadenopathy. UPPER ABDOMEN: Moderate size sliding hiatal hernia involves a gastric fundus. Multiple stones are visible in the upper half of the left kidney. There are increased since the prior. OSSEOUS STRUCTURES: Disc space narrowing and vacuum phenomena with endplate osteophytes are noted in the mid to lower thoracic spine. CT/CT chest wo IV con IMPRESSION: Concerning for bronchogenic carcinoma or metastatic disease: There are multiple new spiculated nodules in the lungs that are highly suspicious. The largest is in the posterior right upper lobe measuring 15 x 26 mm. It is of mixed solid and groundglass density. The solid component is 8 by 15 mm. Fleischner Society recommends either CT in 3 months, PET/CT, or consultation for biopsy. Dr. Dash messaged via Consulted. There is a mildly enlarged right lower paratracheal lymph node that is stable. Stable mild bronchiectasis with mucus impaction and centrilobular nodules in the lung bases. Fleischner guidelines were followed. Electronically signed by: Freddie Frausto MD 06/13/2025 05:23 PM EDT RP
== END 2025-06-13 15:23 | disposition home or self-care (01) ==
LOC: HO.CT 15:22
PROVIDERS: PCP Internal Medicine; Visit Provider Hospitalist
DX: R91.1 Solitary pulmonary nodule (principal); J44.9 Chronic obstructive pulmonary disease, unspecified
CPT/HCPCS: 71250; 94618; 99211

== ENCOUNTER → 2025-06-13 15:23 | Outpatient (BNV) | payer MEDICARE, SELFPAY | PROVIDERS: PCP Internal Medicine; Visit Provider Radiology Diagnostic Radiology | DX: R91.8 Other nonspecific abnormal finding of lung field (principal) | CPT/HCPCS: 71250 ==

== ENCOUNTER 2025-07-06 12:46 | Outpatient (AMB) | payer MEDICARE, SELFPAY ==
[2025-07-06 12:58] VITALS: BP 142/70; PULSE 93; O2SAT 94; BMI 26.4
--- NOTE | 2025-07-06 12:58 | A.OFFVIS_ITS ---
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 More recently in May she noticed that her cough was consistent of blood. The patient was brought to the [facility] ER where she was evaluated. She did have a CT scan of the chest that was personally by me. Appeared that she does have bronchiectatic changes in addition to that mosaic pattern suggesting air trapping. Patient was briefly admitted to the hospital. She had not been on any blood thinners. She was placed on antibiotics. Her cough improved in her hemoptysis resolved. The patient is here for follow-up. She complains of still productive cough with yellowish phlegm. Denies any evidence of any old or new blood. Denies any weight loss or night sweats. Does have so me shortness of breath with activity. At this point will have the patient undergo blood work to assess her bronchiectatic changes. She does have a hiatal hernia we talked about the importance of the reflux diet. Patient also will provide us with a sputum sample both for AFB and Gram stain and culture. Patient also start respiratory therapy. If the patient developed worsening respiratory symptoms or recurrent hemoptysis she will call in order for us to set up for bronchoscopy. otherwise she will follow-up after her PFTs and blood work. 08/09/2023 the patient is here for pulmonary follow-up visit. Overall she is feeling better. We did send a sputum culture now is positive for Pseudomonas and the patient responded well to Levaquin. She is feeling better although she is starting to develop increasing chest congestion. Denies any hemoptysis. She is using her respiratory medications. She has yet to receive her Acapella valve will request 1 at this time. At this point there is no need for bronchoscopy although we will reassess her symptoms. If she develops worsening chest congestion or abnormal chest x-ray will go ahead and plan to perform bronchoscopy for airway clearance evaluation and subsequently therapy. If the patient continues to grow positive for Pseudomonas that she may be a good candidate for inhaled tobramycin. We did talk about it. At this point she will go back on azithromycin 3 times a week for her bronchiectasis. The patient has pulmonary nodules. They are small. She will need follow-up imaging studies. 10/19/2023 the patient is here for a pulmonary follow-up visit. Overall she is doing better. She was able to get a sputum sample for us for culture today. Will wait for the results. She had Pseudomonas in the past. She had responded well to the Levaquin. And then subsequently after that she was placed on azithromycin 3 times a week for her bronchiectasis. Her mucus in cough is better. She also get her Acapella valve for although she has only used it twice. I did emphasize importance of the Acapella valve in order for her to practice good bronchopulmonary hygiene and also for good exercise for her respiratory capacity. She did stop the azithromycin at this time. She opts in taking minimal medications and therefore she will hold off on this time. The mucus gets worse again then we can always restart it. Will also await the results of her microbiology. In the meantime her hemoptysis is also better. Seems like she is not getting any significant amount of blood. She will monitor that closely as well. Her last CT scan was done in May 2023 demonstrating a 5 mm pulmonary nodule and also the bronchiectatic changes. She will need a CT scan a year from that one. And will follow-up in 4-6 months. If the patient has any issues prior to that she will call the office for an earlier assessment. 06/13/2024 the patient is here for a pulmonary follow-up visit. The patient overall has been doing well. She did start the inhaled tobramycin because the Pseudomonas in the bronchiectasis. She has been using it 28 days on 28 days off. It has been affecting beneficial. Her hemoptysis has cleared completely. She did have a recent CT scan of the chest which I personally reviewed. It appears that the bronchiectasis still present but the pulmonary nodules have improved. Her treating budding also some. In the mosaic pattern also has improved. She continues on the Advair. She has a rescue inhaler. As far as vaccine she is up-to-date with all her vaccines except for the COVID-19 booster. She is going to get that soon. Otherwise the patient is doing well will continue with the current therapy with the inhaled tobramycin 28 days out 20 days off. When she returns in the spring we will talk about considering extending the 28 days off. 01/31/2025 the patient is here for a pulmonary follow-up visit. Overall she is doing well. She continues on the inhaled SONIA 20 days on 20 days off. Her chest congestion is improved. Will try to taper her a little bit to 28 days on and 42 days off. If she continues to do well will plan to increase it further to 56 days off. In the meantime she continues to use a new inhaler well. She is getting Symbicort. Some expensive right now but when she history to But she be cheaper. Is helping her breathe better. She still has some shortness of breath with activity but mild. She is starting to walk more. Her last CT scan of the chest was back in May 2024 demonstrating the bronchiectatic changes in addition to the pulmonary nodules. She will be scheduled to get another CAT scan around May/June of 2024. Will follow-up with her at some point after that. If she has any issues prior to that she will call the office for further recommendations. 07/06/2025 the patient is here for pulmonary follow-up visit. Back in May she started developing worsening respiratory symptoms. She was planning her son's wedding so she did not too much of it. Unfortunately after the wedding her symptoms worsen where she ended up admitted to the hospital about 6 days. She was treated for a COPD exacerbation bronchitis. The patient ultimately was d ischarged she had a CAT scan right after she was discharged possible like a week or 2. It was personally by me. She does have significant bronchiectasis primarily in the right lower lobe in addition to multiple pulmonary nodules some which are new. Likely related to her recent infection although malignant processes are not ruled out. The patient has been using Acapella valve and using her nebulizer therapy with the SONIA. Unfortunately though her respiratory symptoms are getting worse she has a hard time expectorating. She failed the Acapella valve. Will go ahead and request a percussion vest for her specially with her Pseudomonas history. She is also going to start albuterol and hypertonic saline for CPT while she is using the percussion vest. Will plan to repeat the CAT scan in 3 months to make sure that those nodular densities have resolved. If the nodules continue to be present and if they become more concerning then additional diagnostic testing will be warranted. Will follow-up after the CAT scan in 3-4 months. [facility] Medical History (Updated 07/07/25 @ 21:50 by Jose Dash MD) COPD (chronic obstructive pulmonary disease) COPD exacerbation History of adenomatous polyp of colon Dyslipidemia Hiatal hernia Pulmonary nodule Osteopenia of left femoral neck Impaired fasting glucose Surgical History Hx of colonoscopy History of surgery History of section Family History Father Anemia Mother COPD (chronic obstructive pulmonary disease) Son No problems noted. Daughter No problems noted. 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 Cognitive needs: No Hearing needs: No Vision needs: Yes Review of Systems Const Denies chills, Denies fatigue, Denies fever(s), Denies weight gain and Denies weight loss ENT Reports Normal hearing present and Denies dizziness Card Denies chest pain, Denies leg edema, Denies lightheadedness, Denies palpitations, Denies dyspnea on exertion, Denies orthopnea and Denies other Resp Denies cough and Denies dyspnea on exertion GI Denies hematochezia and Denies change in stool character Denies urinary frequency, Denies dysuria and Denies urinary urgency Musc Denies abnormal gait, Denies muscle weakness, Denies numbness, Denies radiating pain into limb and Denies tingling Skin/Breast Denies lesions and Denies rash Neuro Reports Normal hearing present, Denies abnormal gait, Denies dizziness, Denies numbness, Denies Sensory deficit (Neuro) and Denies tingling Psych Reports no additional complaints Endo Denies fatigue and Denies palpitations Mitch/Lymph Denies easy bleeding, Denies easy bruising and Denies lymphadenopathy Aller/Immun Denies seasonal rhinorrhea Physical Exam Vital Signs: Last Vital Signs Pulse 93 07/06/25 12:58 BP 142/70 H 07/06/25 12:58 Pulse Ox 94 07/06/25 12:58 Oxygen Delivery Method Room Air 07/06/25 12:58 BMI result Body Mass Index 26.4 Last Vital Signs Temp 97.8 F 05/31/23 11:10 Pulse 81 05/31/23 11:10 Resp 16 05/31/23 11:10 BP 153/67 H 05/31/23 11:10 Pulse Ox 93 05/31/23 11:10 O2 Del Method Room Air 05/31/23 11:10 BMI result Body Mass Index 27.1 Const General: comfortable HEENT Head: Yes normocephalic Neck Neck: Yes supple Chest Chest palpation & inspection: normal inspection of the chest Resp Effort & Inspection: normal respiratory effort Auscultation: rhonchi and diminished lung sounds Cardio Rate: regular rate Rhythm: regular rhythm Heart sounds: S1 normal heart sound present and S2 normal heart sound present GI Palpation (GI): Soft to palpation Skin General skin exam: no rashes or lesions noted Neuro Cranial nerves: Yes Normal hearing present Sensory Exam: No Sensory deficit (Neuro) Extrem General: Yes no clubbing, cyanosis or edema Results Reviewed Results Reviewed: [address] [address] [address] Scan Report Signed Patient: Kat Trinh MR#: [id number] : 1950 Acct:[id number] Age/Sex: 72 / F ADM Date: 05/29/23 Loc: HO.ED Attending Dr: Ordering Physician: Lexa Michel MD Date of Service: 05/29/23 Procedure(s): CT angio chest PE protocol Accession Number(s): [id number] cc: Lexa Michel MD~ EXAMINATION: CT ANGIOGRAM OF THE CHEST WITH AND WITHOUT CONTRAST (CT PULMONARY ANGIOGRAM FOR PE) CLINICAL INFORMATION: Reason for Exam Hematemesis, rule out PE, malignancy COMPARISON: Previous chest x-ray from earlier the same day TECHNIQUE: Prior to contrast administration, noncontrast localization images were obtained. ? Subsequently, multidetector volumetric imaging was performed from the thoracic inlet to below the diaphragms following the administration of 65 mL Omnipaque 350 intravenous contrast. No contrast reaction reported Sagittal, coronal, and MIP oblique sagittal reformatted images were obtained on the CT workstation, uploaded to PACS, and reviewed. This CT examination was performed using dose optimization techniques as appropriate, variously including the following: *Automated exposure control *Adjustment of mA and/or kV according to patient size (this includes techniques or standardized protocols for targeted exams where dose is matched to indication/reason for exam; i.e. extremities or head) *Use of iterative reconstruction technique Total exam dose-length product 221 mGy-cm FINDINGS: QUALITY OF STUDY/CONTRAST BOLUS: Satisfactory. PULMONARY ARTERIES: No pulmonary emboli.? THORACIC AORTA: No aneurysm. LUNG: Scattered areas of bronchial wall thickening and bronchial soft tissue opacification or mucus plugging. Mild right lower lobe bronchiectasis. 5 mm right lower lobe nodule axial image 339 series 7. Larger areas of atelectasis or small infiltrate in the medial segment of the right middle lobe and inferior segment of the lingula and bibasilar lower lobes. PLEURA: No pleural effusion or pneumothorax. MEDIASTINUM: Normal heart size.? No pericardial effusion. Shotty mediastinal and bilateral hilar lymph nodes. No enlarged hilar or mediastinal lymphadenopathy.? No evidence of septal bowing or right heart strain. Small esophageal hernia. CORONARY ARTERY CALCIFICATION: Moderate CHEST WALL/AXILLA: No axillary or internal mammary lymphadenopathy. OSSEOUS STRUCTURES: No acute or suspicious osseous abnormality.? UPPER ABDOMEN: Unremarkable.? No reflux of contrast into the hepatic veins to suggest elevated right heart pressures. CT/CT angio chest PE protocol IMPRESSION: No evidence of pulmonary embolism. Extensive airways disease with bronchial wall thickening and soft tissue opacification or mucus plugging. Mild right lower lobe bronchiectasis. 5 mm right lower lobe nodule. Atelectasis or small infiltrates at the lung bases. According to the UPDATED 2017 Fleischner Society recommendations, the advised follow-up imaging for less than 6 mm solid nodule,: Low risk, no chest CT follow-up and high risk, optional chest CT follow-up in one year. Nodule is stable, no additional chest CT follow-up recommended. ? VTE: negative Dictated By: Marcia Astudillo MD Signed By: <Electronically signed by Marcia Astudillo MD in OV> 05/29/23 1430 DD/ 1415 TD/TT:? Senior Fund Accountant: OCTAVIO Assessment & Plan Assessment & Plan (1) Bronchiectasis: Code(s): J47.9 - Bronchiectasis, uncomplicated Category: Medical Qualifiers: Bronchiectasis type: with acute exacerbation Qualified Code(s): J47.1 - Bronchiectasis with (acute) exacerbation (2) Pulmonary nodule: Code(s): R91.1 - Solitary pulmonary nodule Category: Medical (3) Hiatal hernia: Code(s): K44.9 - Diaphragmatic hernia without obstruction or gangrene Category: Medical (4) COPD (chronic obstructive pulmonary disease): Code(s): J44.9 - Chronic obstructive pulmonary disease, unspecified Category: Medical Qualifiers: COPD type: chronic bronchitis Chronic bronchitis type: mucopurulent Qualified Code(s): J41.1 - Mucopurulent chronic bronchitis Plan continue symbicort HFA BID CPT acapella valve Will need serial CT chest, next 05/2025 start CPT with percussion vest (failued acapella device) reflux diet JONATHAN as needed Sleep with HOB elevated continue Sonia 28 days on and [address] chest 3 months F/U 4-6 months Orders: Orders CT chest wo IV con 3 Months R91.1 - Solitary pulmonary nodule Medications: New albuterol sulfate 2.5 mg (3 mL) inhalation BID 360 mL 11RF shortness of breath or wheezing 30 days J44.9 - Chronic obstructive pulmonary disease, unspecified sodium chloride 3% 4 mL inhalation BID 240 mL 11RF 30 days Coding Level of Care Code Est Pt Level 5 (19291) Complex EM visit Add On G2211 Diagnoses Bronchiectasis with acute exacerbation J47.1 Bronchiectasis type: with acute exacerbation Pulmonary nodule R91.1 Hiatal hernia K44.9 Mucopurulent chronic bronchitis J41.1 COPD type: chronic bronchitis Chronic bronchitis type: mucopurulent Time Spent (min) 40
== END 2025-07-06 13:21 | disposition home or self-care (01) ==
LOC: HO.HPS 12:47
PROVIDERS: PCP Internal Medicine; Visit Provider Hospitalist
DX: J47.1 Bronchiectasis with (acute) exacerbation (principal); R91.1 Solitary pulmonary nodule; K44.9 Diaphragmatic hernia without obstruction or gangrene; J41.1 Mucopurulent chronic bronchitis
CPT/HCPCS: 99215; G2211

== ENCOUNTER → 2025-07-06 12:46 | Outpatient (BNVA) | payer MEDICARE, SELFPAY | PROVIDERS: PCP Internal Medicine; Visit Provider Hospitalist | DX: J47.9 Bronchiectasis, uncomplicated (principal); J41.1 Mucopurulent chronic bronchitis; R91.1 Solitary pulmonary nodule; K44.9 Diaphragmatic hernia without obstruction or gangrene; Z87.891 Personal history of nicotine dependence | CPT/HCPCS: 99212 ==

== ENCOUNTER 2025-07-26 13:13 | Outpatient (REF) | payer MEDICARE, SELFPAY ==
--- NOTE | ~2025-07-26 | MM_ITS ---
EXAMINATION: DXA BONE DENSITY AXIAL HISTORY: M85.852 - Other specified disorders of bone density and structure, left ... TECHNIQUE: [email or web address] Dual energy absorptiometry (DEXA) of the lumbar spine, total left hip, and femoral neck was performed. COMPARISON: Comparison is made with the prior examination dated 05/05/2023. FINDINGS: The bone mineral density of the lumbar spine is 1.285 g/cm2, corresponding to a T-score of 0.7, and a Z-score of 2.4. This is indicative of normal bone mineral density. This represents a BMD change of -0.8% compared to the prior exam. This is not statistically significant. The bone mineral density of the left total hip is 0.802 g/cm2, corresponding to a T-score of -1.6, and a Z-score of 0.0. This is indicative of osteopenia. This represents a BMD change of -2.4% compared to the prior exam. This is not statistically significant. The bone mineral density of the left femoral neck is 0.819 g/cm2, corresponding to a T-score of -1.6, and a Z-score of 0.2. This is indicative of osteopenia. This represents a BMD change of 2.9% compared to the prior exam. FRACTURE RISK: The FRAX index suggests a ten year probability of major osteoporotic fracture of 11.0%, and of hip fracture 2.0%. MM/XR DEXA axial skeleton IMPRESSION: Based on bone mineral density, and according to World Health Organization (WHO) criteria, the diagnosis is consistent with osteopenia. Statistically, 68% of repeat scans fall within 1 SD (+/- 0.010 g/cm2 for AP spine L1-L4) and 1 SD (+/- 0.012 g/cm2 for femur total) FRAX is a trademark of the [employer] [place] for Metabolic Bone Disease, a World Health Organization (WHO) Collaborating Center. Electronically signed by: Brandon Webb MD 07/26/2025 01:54 PM EDT
== END 2025-07-26 13:14 | disposition home or self-care (01) ==
LOC: HO.MAMMO 13:13
PROVIDERS: PCP Internal Medicine; Visit Provider Internal Medicine
DX: Z13.820 Encounter for screening for osteoporosis (principal); M85.852 Other specified disorders of bone density and structure, left thigh
CPT/HCPCS: 77080

== ENCOUNTER → 2025-07-26 13:30 | Outpatient (BNV) | payer MEDICARE, SELFPAY | PROVIDERS: PCP Internal Medicine; Visit Provider Radiology Diagnostic Radiology | DX: E28.39 Other primary ovarian failure (principal) | CPT/HCPCS: 77080 ==

== ENCOUNTER 2025-09-07 14:06 | Outpatient (REF) | payer MEDICARE, SELFPAY ==
--- NOTE | 2025-09-07 14:53 | ECG_ITS ---
Test Reason : COPD Blood Pressure : */* mmHG Vent. Rate : 108 BPM Atrial Rate : 108 BPM P-R Int : 142 ms QRS Dur : 62 ms QT Int : 340 ms P-R-T Axes : 50 43 64 degrees QTcB Int : 455 ms Sinus tachycardia with frequent , and consecutive Premature ventricular complexes Low voltage QRS Abnormal ECG When compared with ECG of 27-May-2025 05:15, Nonspecific T wave abnormality no longer evident in Inferior leads Referred By: Jose Dash Electronically Signed By: BERNARD SIDDIQUI
[2025-09-07 15:13] LABS: MANUAL DIFF FLAG NO
[2025-09-07 15:19] LABS: Hematocrit 48.3 % (37.0-47.0); Hemoglobin 15.2 g/dl (12.0-16.0); Imm Gran Abs Auto 0.01 X10*3/uL (0.00-0.03); Imm Gran Pct Auto 0.1 % (0.0-0.4); Lymphocytes Absolute Auto 1.0 X10*3/uL (1.2-4.9); Mean Corpuscular HGB Conc 31.5 g/dl (31.0-35.0); Mean Corpuscular Hemoglobin 29.5 pg (27.0-33.0); Mean Corpuscular Volume 93.8 fL (80.0-98.0); NRBC Abs Auto 0.000 X10*3/uL (0.0-0.012); NRBC Pct Auto 0.0 /100WBC (0.0-0.2); Platelet Count 218 X10*3/uL (160-400); Red Blood Count 5.15 X10*6/uL (4.20-5.50); White Blood Count 7.9 X10*3/uL (4.8-10.8)
[2025-09-07 15:39] LABS: D Dimer High Sensitivity < 150 NG/ML
[2025-09-07 15:50] LABS: Anion Gap 10 (12-20); Blood Urea Nitrogen 13 mg/dL (9-16); Calcium 9.8 mg/dL (8.4-10.2); Carbon Dioxide 30 mmol/L (22-29); Chloride 108 mmol/L (96-108); Estimated Glomerular Filt Rate > 60; Potassium 5.0 mmol/L (3.3-5.1); Sodium 143 mmol/L (135-145)
[2025-09-07 15:58] LABS: Troponin-I High Sensitivity 6.9 ng/L (<3.5-17.0)
== END 2025-09-07 14:07 | disposition home or self-care (01) ==
LOC: HO.LAB 14:06
PROVIDERS: PCP Internal Medicine; Visit Provider Hospitalist
DX: J41.1 Mucopurulent chronic bronchitis (principal); J47.1 Bronchiectasis with (acute) exacerbation; R00.0 Tachycardia, unspecified; K44.9 Diaphragmatic hernia without obstruction or gangrene; R91.1 Solitary pulmonary nodule; Z79.52 Long term (current) use of systemic steroids; Z79.51 Long term (current) use of inhaled steroids; Z79.2 Long term (current) use of antibiotics; Z87.891 Personal history of nicotine dependence
CPT/HCPCS: 36415; 80048; 84484; 85025; 85379; 85652; 93005; 94618; 96372; 99212

== ENCOUNTER 2025-09-07 14:06 | Outpatient (AMB) | payer MEDICARE, SELFPAY ==
[2025-09-07 14:10] VITALS: BP 130/60; PULSE 94; O2SAT 94; BMI 25.8
--- NOTE | 2025-09-07 14:10 | MHC.OFFVIS ---
Vital Signs 09/07/25 14:10 Height 5 ft 2 in Weight 141 lb 1.533 oz BMI 25.8 BP 130/60 Blood Pressure Location Lt brachial Position Sitting Pulse 94 Pulse Source Pulse Oximeter Pulse Oximetry (%) 94 Oxygen Delivery Method Room Air Intake Visit Reasons: dyspnea Thermometer Maker Required: No Accompanied by: Self / Same As Patient Allergies codeine Allergy (Severe, Verified 09/07/25 14:13) Vomiting HPI Comments Details: The patient is a 75 year woman with a known history of tobacco use in the past who apparently has been complaining of productive cough for several years. More recently in May she noticed that her cough was consistent of blood. The patient was brought to the [facility] ER where she was evaluated. She did have a CT scan of the chest that was personally by me. Appeared that she does have bronchiectatic changes in addition to that mosaic pattern suggesting air trapping. Patient was briefly admitted to the hospital. She had not been on any blood thinners. She was placed on antibiotics. Her cough improved in her hemoptysis resolved. The patient is here for follow-up. She complains of still productive cough with yellowish phlegm. Denies any evidence of any old or new blood. Denies any weight loss or night sweats. Does have some shortness of breath with activity. At this point will have the patient undergo blood work to assess her bronchiectatic changes. She does have a hiatal hernia we talked about the importance of the reflux diet. Patient also will provide us with a sputum sample both for AFB and Gram stain and culture. Patient also start respiratory therapy. If the patient developed worsening respiratory symptoms or recurrent hemoptysis she will call in order for us to set up for bronchoscopy. otherwise she will follow-up after her PFTs and blood work. 08/09/2023 the patient is here for pulmonary follow-up visit. Overall she is feeling better. We did send a sputum culture now is positive for Pseudomonas and the patient responded well to Levaquin. She is feeling better although she is starting to develop increasing chest congestion. Denies any hemoptysis. She is using her respiratory medications. She has yet to receive her Acapella valve will request 1 at this time. At this point there is no need for bronchoscopy although we will reassess her symptoms. If she develops worsening chest congestion or abnormal chest x-ray will go ahead and plan to perform bronchoscopy for airway clearance evaluation and subsequently therapy. If the patient continues to grow positive for Pseudomonas that she may be a good candidate for inhaled tobramycin. We did talk about it. At this point she will go back on azithromycin 3 times a week for her bronchiectasis. The patient has pulmonary nodules. They are small. She will need follow-up imaging studies. 10/19/2023 the patient is here for a pulmonary follow-up visit. Overall she is doing better. She was able to get a sputum sample for us for culture today. Will wait for the results. She had Pseudomonas in the past. She had responded well to the Levaquin. And then subsequently after that she was placed on azithromycin 3 times a week for her bronchiectasis. Her mucus in cough is better. She also get her Acapella valve for although she has only used it twice. I did emphasize importance of the Acapella valve in order for her to practice good bronchopulmonary hygiene and also for good exercise for her respiratory capacity. She did stop the azithromycin at this time. She opts in taking minimal medications and therefore she will hold off on this time. The mucus gets worse again then we can always restart it. Will also await the results of her microbiology. In the meantime her hemoptysis is also better. Seems like she is not getting any significant amount of blood. She will monitor that closely as well. Her last CT scan was done in May 2023 demonstrating a 5 mm pulmonary nodule and also the bronchiectatic changes. She will need a CT scan a year from that one. And will follow-up in 4-6 months. If the patient has any issues prior to that she will call the office for an earlier assessment. 06/13/2024 the patient is here for a pulmonary follow-up visit. The patient overall has been doing well. She did start the inhaled tobramycin because the Pseudomonas in the bronchiectasis. She has been using it 28 days on 28 days off. It has been affecting beneficial. Her hemoptysis has cleared completely. She did have a recent CT scan of the chest which I personally reviewed. It appears that the bronchiectasis still present but the pulmonary nodules have improved. Her treating budding also some. In the mosaic pattern also has improved. She continues on the Advair. She has a rescue inhaler. As far as vaccine she is up-to-date with all her vaccines except for the COVID-19 booster. She is going to get that soon. Otherwise the patient is doing well will continue with the current therapy with the inhaled tobramycin 28 days out 20 days off. When she returns in the spring we will talk about considering extending the 28 days off. 01/31/2025 the patient is here for a pulmonary follow-up visit. Overall she is doing well. She continues on the inhaled SONIA 20 days on 20 days off. Her chest congestion is improved. Will try to taper her a little bit to 28 days on and 42 days off. If she continues to do well will plan to increase it further to 56 days off. In the meantime she continues to use a new inhaler well. She is getting Symbicort. Some expensive right now but when she history to But she be cheaper. Is helping her breathe better. She still has some shortness of breath with activity but mild. She is starting to walk more. Her last CT scan of the chest was back in May 2024 demonstrating the bronchiectatic changes in addition to the pulmonary nodules. She will be scheduled to get another CAT scan around May/June of 2024. Will follow-up with her at some point after that. If she has any issues prior to that she will call the office for further recommendations. 07/06/2025 the patient is here for pulmonary follow-up visit. Back in May she started developing worsening respiratory symptoms. She was planning her son's wedding so she did not too much of it. Unfortunately after the wedding her symptoms worsen where she ended up admitted to the hospital about 6 days. She was treated for a COPD exacerbation bronchitis. The patient ultimately was discharged she had a CAT scan right after she was discharged possible like a week or 2. It was personally by me. She does have significant bronchiectasis primarily in the right lower lobe in addition to multiple pulmonary nodules some which are new. Likely related to her recent infection although malignant processes are not ruled out. The patient has been using Acapella valve and using her nebulizer therapy with the SONIA. Unfortunately though her respiratory symptoms are getting worse she has a hard time expectorating. She failed the Acapella valve. Will go ahead and request a percussion vest for her specially with her Pseudomonas history. She is also going to start albuterol and hypertonic saline for CPT while she is using the percussion vest. Will plan to repeat the CAT scan in 3 months to make sure that those nodular densities have resolved. If the nodules continue to be present and if they become more concerning then additional diagnostic testing will be warranted. Will follow-up after the CAT scan in 3-4 months. 09/07/2025 the patient is here for pulmonary follow-up visit. She is having hard time with the breathing. Feels like she is very breathless. Has a hard time doing any activities of daily living. Feels like she is getting worse. She is using the SONIA and isn't in addition to the albuterol and hypertonic saline. She is also using the percussion vest. She states that her mucus is a lot clear and she is not producing significant amount of mucus which is overall reassuring. On exam the patient does have chest tightness. Will go ahead and give her Solu-Medrol right now and then she can take prednisone at home. Hopefully with the improvement of her chest tightness and COPD exacerbation she should be starting to feel better. We also did go for a walking oximetry the patient did desaturate with activity down to 86%. She was placed on 2 L pulse and she did feel better. Heart rate did a little better with the still elevated. She is going to go for blood work in addition to an EKG today. [facility] Medical History (Updated 09/07/25 @ 14:32 by Jose Dash MD) Tachycardia COPD (chronic obstructive pulmonary disease) COPD exacerbation History of adenomatous polyp of colon Dyslipidemia Hiatal hernia Pulmonary nodule Osteopenia of left femoral neck Impaired fasting glucose Surgical History Hx of colonoscopy History of surgery History of section Family History Father Anemia Mother COPD (chronic obstructive pulmonary disease) Son No problems noted. Daughter No problems noted. 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 Cognitive needs: No Hearing needs: No Vision needs: Yes Review of Systems Const Denies chills, Denies fatigue, Denies fever(s), Denies weight gain and Denies weight loss ENT Reports Normal hearing present and Denies dizziness Card Denies chest pain, Denies leg edema, Denies lightheadedness, Denies palpitations, Reports dyspnea, Reports dyspnea on exertion, Denies orthopnea and Denies other Resp Reports cough, Denies hemoptysis, Reports dyspnea, Reports dyspnea on exertion and Reports wheezing GI Denies hematochezia and Denies change in stool character Denies urinary frequency, Denies dysuria and Denies urinary urgency Musc Denies abnormal gait, Denies muscle weakness, Denies numbness, Denies radiating pain into limb and Denies tingling Skin/Breast Denies lesions and Denies rash Neuro Reports Normal hearing present, Denies abnormal gait, Denies dizziness, Denies numbness, Denies Sensory deficit (Neuro) and Denies tingling Psych Reports no additional complaints Endo Denies fatigue and Denies palpitations Mitch/Lymph Denies easy bleeding, Denies easy bruising and Denies lymphadenopathy Aller/Immun Denies seasonal rhinorrhea and Reports wheezing Physical Exam Vital Signs: Last Vital Signs Pulse 94 09/07/25 14:10 BP 130/60 09/07/25 14:10 Pulse Ox 94 09/07/25 14:10 Oxygen Delivery Method Room Air 09/07/25 14:10 BMI result Body Mass Index 25.8 Last Vital Signs Temp 97.8 F 05/31/23 11:10 Pulse 81 05/31/23 11:10 Resp 16 05/31/23 11:10 BP 153/67 H 05/31/23 11:10 Pulse Ox 93 05/31/23 11:10 O2 Del Method Room Air 05/31/23 11:10 BMI result Body Mass Index 27.1 Const General: comfortable HEENT Head: Yes normocephalic Neck Neck: Yes supple Chest Chest palpation & inspection: normal inspection of the chest Resp Effort & Inspection: normal respiratory effort and prolonged expiratory phase Auscultation: wheezes and diminished lung sounds Cardio Rate: regular rate Rhythm: regular rhythm Heart sounds: S1 normal heart sound present and S2 normal heart sound present GI Palpation (GI): Soft to palpation Skin General skin exam: no rashes or lesions noted Neuro Cranial nerves: Yes Normal hearing present Sensory Exam: No Sensory deficit (Neuro) Extrem General: Yes no clubbing, cyanosis or edema Office Procedures 6 Minute Walk Time:: 22:46 SPO2 % at rest: 94 Pulse at rest: 101 SPO2 % during excercise: 87 Pulse during excercise: 125 Distance in yards walked: 100 [place] Score: 7 Supplemental Oxygen: Desaturated with activity. placed on 3L/pulse with activity improving the pox to 94% with activity 08641 - 6 Minute Walk Office Meds methylprednisolone sod suc(PF) 125 mg/2 mL solution for injection Performing Provider: Jose Dash MD Performing Location: [facility] Pulmonology Services Administered by: Freda Lott LPN on 09/07/25 15:09 Dose Route Admin Location Dispensed Lot Number Expiration Date NDC Show Worker 125 mg IM R buttock 1 ea [id number] 11/17/27 7636-4543-54 [employer] Total Dispensed Waste 1 ea 0 % Assessment & Plan Assessment & Plan (1) Bronchiectasis: Code(s): J47.9 - Bronchiectasis, uncomplicated Category: Medical Qualifiers: Bronchiectasis type: with acute exacerbation Qualified Code(s): J47.1 - Bronchiectasis with (acute) exacerbation (2) Pulmonary nodule: Code(s): R91.1 - Solitary pulmonary nodule Category: Medical (3) Hiatal hernia: Code(s): K44.9 - Diaphragmatic hernia without obstruction or gangrene Category: Medical (4) COPD (chronic obstructive pulmonary disease): Code(s): J44.9 - Chronic obstructive pulmonary disease, unspecified Category: Medical Qualifiers: COPD type: chronic bronchitis Chronic bronchitis type: mucopurulent Qualified Code(s): J41.1 - Mucopurulent chronic bronchitis (5) Tachycardia: Code(s): R00.0 - Tachycardia, unspecified Category: Medical Plan restart Prednisone taper start oxygen supplementation. 2l/pulse with activity. The patient needs a POC for better portability outside of the home. Also should use it while sleeping continue symbicort HFA BID CPT acapella valve Will need serial CT chest, next 05/2025 CPT with percussion vest (failued acapella device) reflux diet JONATHAN as needed Sleep with HOB elevated continue Sonia 28 days on and 28 day off Bloodwork including ddimer EKG F/U 2-4 weeks Orders: Orders Troponin-I High Sensitivity 09/07/25 R00.0 - Tachycardia, unspecified Complete Blood Count Auto Diff 09/07/25 R00.0 - Tachycardia, unspecified Basic Metabolic Panel 09/07/25 R00.0 - Tachycardia, unspecified D Dimer High Sensitivity 09/07/25 R00.0 - Tachycardia, unspecified Erythrocyte Sedimentation Rate 09/07/25 R00.0 - Tachycardia, unspecified ECG 12 lead EKG 09/07/25 J44.9 - Chronic obstructive pulmonary disease, unspecified AMB Methylprednisolone Sod Succ Injection 09/07/25 J41.1 - Mucopurulent chronic bronchitis Medications: New prednisone PO daily; Take 2 tabs daily x 5 days, then 1 tablet daily x 5 days 15 tabs 0RF 10 days Coding Level of Care Code Est Pt Level 5 (18428) Diagnoses Bronchiectasis with acute exacerbation J47.1 Bronchiectasis type: with acute exacerbation Pulmonary nodule R91.1 Hiatal hernia K44.9 Mucopurulent chronic bronchitis J41.1 COPD type: chronic bronchitis Chronic bronchitis type: mucopurulent Tachycardia R00.0 CPT Codes Coding ([id number]) Time Spent (min) 40
--- OUTSIDE RECORDS SUMMARY | 2025-09-07 14:31 | XMS_ITS | Patient Health Record ---
Author Organization [facility] Address [address] [place] [address] Care Team Providers Care Ground Support Equipment Mechanic Name Role Phone Soraya PUENTE, Kylie Primary Care Provider Brandon Schultz [phone] Allergies Allergen (clinical drug ingredient) Drug/Non Drug Allergy documented on EMR Reaction Allergy Type Onset Date Status Codeine Phosphate Unknown Drug Allergy Active Reason For Referral No Information Medications Medication SIG (Take, Route, Frequency, Duration) Notes Start Date End Date Status Colyte w Flavor Packs 240 GM Solution Reconstituted as directed Orally as directed; Duration: 1 day(s) 09/26/2015 Active Lovastatin Active Montelukast Sodium 10 MG Tablet 1 tablet in the evening Orally Once a day Active Social History Social History Additional Details Category Social Info Options Details Miscellaneous: Marital status: 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 Section Notes: Nonsmoker since 2006; no sig alcohol Problems Problem Type SNOMED Code ICD Code Onset Dates Problem Status W/U Status Risk Notes Problem Screening for malignant neoplasm of colon (262515394) Encounter for screening for malignant neoplasm of colon (Z12.11) Active confirmed Problem History of adenomatous polyp of colon (858697870) History of adenomatous polyp of colon (Z86.010) Active confirmed Problem Screening for malignant neoplasm of rectum (834979158) Encounter for screening for malignant neoplasm of rectum (Z12.12) Active confirmed Problem Preprocedural examination (468079807829253) Preprocedural examination (Z01.818) Active confirmed Plan Of Treatment Future Test Test Name Order Date COLONOSCOPY 09/24/2015 Insurance Providers Payer Name Payer Address Payer Phone Subscriber Number Group Number Insured Name Patient Relationship to Insured Coverage Start Date Coverage End Date [facility] [address] [address] [place] [address] [id number] MARILYN BEARDEN Self - patient is the insured Medical (General) History Medical History History ICD Code Screening colonoscopy 5-26-10--1 small t ubular adenoma removed Denies IN,DM,CVA,renal disease Hyperlipidemia Asthma Surgical History Surgery Date(Month/Year) 1 1985
[2025-09-09 22:45] VITALS: PULSE 101; O2SAT 94
== END 2025-09-07 14:41 | disposition home or self-care (01) ==
LOC: HO.HPS 14:07
PROVIDERS: PCP Internal Medicine; Visit Provider Hospitalist
DX: J41.1 Mucopurulent chronic bronchitis (principal)

== ENCOUNTER → 2025-09-07 14:53 | Outpatient (BNV) | payer MEDICARE, SELFPAY | PROVIDERS: PCP Internal Medicine; Visit Provider Internal Medicine | DX: R00.0 Tachycardia, unspecified (principal); I49.3 Ventricular premature depolarization | CPT/HCPCS: 93010 ==

== ENCOUNTER 2025-10-08 12:24 | Outpatient (REF) | payer MEDICARE, SELFPAY ==
--- NOTE | ~2025-10-08 | CT_ITS ---
EXAMINATION: CT CHEST WITHOUT IV CONTRAST INDICATION: R91.1 - Solitary pulmonary nodule COMPARISON: Comparison is made with the prior examination dated 06/13/2025. TECHNIQUE: Helical CT scan of the chest was performed without intravenous contrast. Coronal and sagittal reformatted images were generated and reviewed. This CT exam was performed with one or more of the following dose reduction techniques: automated exposure control, adjustment of the mA and/or kV according to patient size, use of iterative reconstruction technique. DLP: 110 mGy-cm CHEST: THYROID: The thyroid is unremarkable. LUNGS: Again seen is mild bronchiectasis and bronchial wall thickening in the lower lung zones with multifocal bronchial occlusion, compatible with mucoid impaction. The previously seen prominent opacities in the right upper lobe and left lower lobe have resolved. There is a linear opacity at the posterior medial aspect of the right lung base. There is scarring at the right lung apex without change. There are no airspace opacities. MEDIASTINUM: Again seen are prominent mediastinal lymph nodes measuring up to 10-11 mm in short axis dimension. JOSE: Evaluation of the hilar regions is limited by lack of intravenous contrast material. CARDIOVASCULATURE: The heart is normal in size. There is no pericardial effusion. The thoracic aorta is normal in caliber. DEGREE OF CORONARY CALCIFICATION: severe PLEURA: There is no pleural effusion. No pneumothorax. MAIN AIRWAYS: The mainstem bronchi and proximal branches are patent. AXILLA: There is no axillary lymphadenopathy. BONES AND SOFT TISSUES: There is degenerative disc disease of the spine. UPPER ABDOMEN: There is a small to moderate hiatal hernia. The visualized portions of the liver, spleen, and adrenals have an unremarkable unenhanced appearance. CT/CT chest wo IV con IMPRESSION: Bronchiectasis and bronchial wall thickening in the lower lung zones with multifocal areas of mucoid impaction. The previously seen opacities in the right upper and left lower lobes have resolved. Electronically signed by: Brandon Webb MD 10/08/2025 02:11 PM [facility]
--- OUTSIDE RECORDS SUMMARY | 2025-10-08 15:36 | XMS_ITS | Patient Health Record ---
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 Section Notes: Nonsmoker since 2006; no sig alcohol Problems Problem Type SNOMED Code ICD Code Onset Dates Problem Status W/U Status Risk Notes Problem Screening for malignant neoplasm of colon (742717647) Encounter for screening for malignant neoplasm of colon (Z12.11) Active confirmed Problem History of adenomatous polyp of colon (962067228) History of adenomatous polyp of colon (Z86.010) Active confirmed Problem Screening for malignant neoplasm of rectum (736879349) Encounter for screening for malignant neoplasm of rectum (Z12.12) Active confirmed Problem Preprocedural examination (977089489914146) Preprocedural examination (Z01.818) Active confirmed Plan Of Treatment Future Test Test Name Order Date COLONOSCOPY 09/24/2015 Insurance Providers Payer Name Payer Address Payer Phone Subscriber Number Group Number Insured Name Patient Relationship to Insured Coverage Start Date Coverage End Date [facility] [address] [address] [place] [address] [id number] MARILYN BEARDEN Self - patient is the insured Medical (General) History Medical History History ICD Code Screening colonoscopy 5-26-10--1 small t ubular adenoma removed Denies SD,DM,CVA,renal disease Hyperlipidemia Asthma Surgical History Surgery Date(Month/Year) 1 1985
== END 2025-10-08 12:25 | disposition home or self-care (01) ==
LOC: HO.CT 12:24
PROVIDERS: PCP Internal Medicine; Visit Provider Hospitalist
DX: R91.1 Solitary pulmonary nodule (principal)
CPT/HCPCS: 71250

== ENCOUNTER → 2025-10-08 12:25 | Outpatient (BNV) | payer MEDICARE, SELFPAY | PROVIDERS: PCP Internal Medicine; Visit Provider Radiology Diagnostic Radiology | DX: J47.9 Bronchiectasis, uncomplicated (principal); J98.09 Other diseases of bronchus, not elsewhere classified | CPT/HCPCS: 71250 ==